=== PATIENT | male | born 1960 | race Caucasian/White ===

== ENCOUNTER 2024-09-30 10:40 | Inpatient (IN) | payer MEDICARE, BC ==
[2024-09-30] MEDS ORDERED: ALPRAZolam 0.25 MG TAB PO PRN (11:40)
[2024-09-30] MEDS ORDERED: NITROGLYCERIN SL TABS 0.4 MG TAB SUBLINGUAL PRN (11:40)
[2024-09-30] MEDS ORDERED: ALPRAZolam 0.5 MG TAB PO PRN (11:40)
--- NOTE | 2024-09-30 12:02 | P.CRDCN ---
History of Present Illness History of present illness: HISTORY OF PRESENT ILLNESS: This is a 64-year-old male with a past medical history significant for hypertension. Patient does not follow with a manager fashion. Patient presented to the hospital today for an outpatient walking stress test. Patient states he had 2 episodes in 2023, 1 in May and 1 in June where he "felt his heart beating". He does not necessarily describe it as chest discomfort. He states that he was at routine follow-up visit with Dr. Hart last month when he told him about the 2 episodes and he then ordered a stress test. The patient states since that episode in June 2024, he has had no further episodes. Patient states he is usually very active without symptoms. He denies any known history of coronary artery disease. Denies any family history of premature coronary artery disease. He is a non-smoker. Patient's initial EKG revealed nonspecific ST-T wave changes. Upon exercise, patient developed significant ST elevation in inferior leads with reciprocal changes. The patient denied any chest pain or pressure. Denied any shortness of breath. The patients EKG changes did improve with rest. REVIEW OF SYSTEMS: At the time of my exam: CONSTITUTIONAL: Denies fever or chills. HEENT: Denies blurred vision, vision changes, or eye pain. Denies hemoptysis CARDIOVASCULAR: Denies chest pain. Denies orthopnea. Denies PND. Denies palpitations RESPIRATORY: Denies shortness of breath. GASTROINTESTINAL: Denies abdominal pain. Denies nausea or vomiting. HEMATOLOGIC: Denies bleeding disorders. GENITOURINARY: Denies any blood in urine. SKIN: Denies pruitis. Denies rash. PHYSICAL EXAM: VITAL SIGNS: Reviewed. GENERAL: Well-developed in no acute distress. HEENT: Head is normocephalic. Pupils are equal, round. Sclerae anicteric. Mucous membranes of the mouth are moist. Neck supple. No JVD or thyromegaly LUNGS: Respirations even and unlabored. Lungs essentially clear to auscultation bilaterally. HEART: Regular rate and rhythm. S1 and S2 heard. ABDOMEN: Soft. Nondistended. Nontender. EXTREMITIES: Normal range of motion. No clubbing or cyanosis. Peripheral pulses intact. No lower extremity edema NEUROLOGIC: Awake and alert. Oriented x 3. ASSESSMENT: Abnormal EKG with ST elevation in inferior leads with reciprocal changes with exercise Hypertension PLAN: Obtain 2D echo to assess cardiac structure and function Give 325mg aspirin and 25mg metoprolol now Check CBC, BMP, TSH, hemoglobin A1c, and lipid panel Patient to be admitted to with telemetry Patient to undergo cardiac cath today with Dr. Zaman. Patient and updated and agreeable. Further recommendations pending patient course Nurse practitioner note has been reviewed by physician. Signing provider agrees with the documented findings, assessment, and plan of care documented by AMBULATORY SERVICES REPRESENTATIVE as a scribe. Results Current Medications Generic Name Dose Route Start Last Admin Trade Name Freq PRN Reason Stop Dose Admin Alprazolam 0.25 mg 09/30/24 11:40 Alprazolam 0.25 Mg Tab PO Q6HR PRN Mild Anxiety Alprazolam 0.5 mg 09/30/24 11:40 Alprazolam 0.5 Mg Tab PO Q6HR PRN Moderate Anxiety Aspirin 325 mg 09/30/24 11:38 Aspirin 325 Mg Tab PO 09/30/24 11:39 ONCE ONE Aspirin 325 mg 09/30/24 11:40 Aspirin 325 Mg Tab PO 09/30/24 11:41 ONCE STA Atorvastatin Calcium 80 mg 09/30/24 11:40 Atorvastatin 80 Mg Tab PO 09/30/24 11:41 ONCE STA Heparin Sodium (Porcine) 10, 1,001 mls @ 999 mls/hr 10/01/24 07:00 000 unit/ Sodium Chloride IRRIGATION 10/01/24 23:00 ONCE PRN INTRA-OP Heparin Sodium (Porcine) 2,500 250.5 mls @ 250 mls/hr 10/01/24 07:00 unit/ Sodium Chloride IRRIGATION 10/01/24 23:00 ONCE PRN INTRA-OP Sodium Chloride 1,000 ml/ IV 1,000 mls @ 0 mls/hr 09/30/24 11:45 Solution IV .Q0M CRISTINA 1 ML/KG/HR Metoprolol Tartrate 25 mg 09/30/24 11:38 Metoprolol Tartrate 25 Mg Tab PO 09/30/24 11:39 ONCE ONE Nitroglycerin 0.4 mg 09/30/24 11:40 Nitroglycerin Sl Tabs 0.4 Mg Tab SUBLINGUAL Q5M PRN Chest Pain
[2024-09-30] MEDS: METOPROLOL TARTRATE 25 MG TAB PO ONE (12:10)
[2024-09-30] MEDS: ASPIRIN 325 MG TAB PO ONE (12:10)
[2024-09-30] MEDS: SODIUM CHLORIDE 0.9% 1,000 ML in EMPTY BAG 1 BAG IV SCH (12:10)
[2024-09-30] MEDS: ATORVASTATIN 80 MG TAB PO STA (12:11)
[2024-09-30] MEDS: ASPIRIN 325 MG TAB PO STA (12:11)
[2024-09-30 12:16] LABS: Basophils % (A) 1 %; Eosinophils % (A) 1 %; HCT 39.7 % (39.0-53.0); HGB 12.4 gm/dL (13.0-17.5); Lymphocytes # (A) 0.9 k/uL (1.0-4.8); Lymphocytes % (A) 14 %; MCH 27.9 pg (25.0-35.0); MCHC 31.2 g/dL (31.0-37.0); MCV 89.3 fL (80.0-100.0); Mean Platelet Volume 6.6; Monocytes # (A) 0.2 k/uL (0-1.0); Monocytes % (A) 4 %; Neutrophils # (A) 5.1 k/uL (1.3-7.7); Neutrophils % (A) 79 %; Platelet Count 429 k/uL (150-450); RBC 4.45 m/uL (4.30-5.90); RDW 13.5 % (11.5-15.5); WBC 6.4 k/uL (3.8-10.6)
[2024-09-30] MEDS: IV FLUID CONTINUATION 1,000 ML IV ONE (12:17)
[2024-09-30 12:39] LABS: African American GFR (CKD) 84 (>60 ml/min/1.73 sqM); Anion Gap 12 mmol/L; Blood Urea Nitrogen 24 mg/dL (9-20); Calcium 9.5 mg/dL (8.4-10.2); Carbon Dioxide 24 mmol/L (22-30); Chloride 104 mmol/L (98-107); Glucose 108 mg/dL (74-99); Non-African American GFR(CKD) 73 (>60 ml/min/1.73 sqM); Potassium 3.8 mmol/L (3.5-5.1); Sodium 140 mmol/L (137-145)
--- NOTE | 2024-09-30 13:16 | CA ---
Exercise Stress Test Report Name: Dajuan Gross Exam Date: 09/30/2024 11:02 Exam Location: [facility] Stress Ht (in): 70 Wt (lb): 198 BSA: 2.08 Ordering Phys: Milo Hart MD Referring Phys: Milo aHrt MD Technologist: Brandon Westbrook Age: 64 Gender: M : 1960 Procedure CPT: Indications: R07.9 CHEST PAIN, UNSPECIFIED ICD-10 Codes: Patient History: PALPITATIONS, HTN Medications: LOSARTAN, HZTZ Meds past 24 hrs: Pretest Chest Pain: STRESS TEST Neftali Protocol Exercise Duration (min:sec): 06:[address] Depressions (mm): Angina Score: Villela Score: Resting HR (bpm): 96 Peak HR (bpm): 153 Resting BP (mmHg): 140 / 102 Peak BP (mmHg): 164 / 96 MPHR: 154 Target HR: 131 % MPHR: 99 METS: 8.6 Total Dose: Peak Dose: Atropine: Double Product: 36126 BP Response: Stress Termination: TARGET HR REACHED/MAX EXERTION Stress Symptoms: NO SYMPTOMS Stress Summary: The patient's target heart rate was achieved, The hemodynamic response to exercise was normal ECG ANALYSIS Resting ECG: Sinus rhythm. Normal conduction. No arrhythmias. QS pattern in the anterior inferior leads Stress ECG: ST elevation in the inferior leads with [address] depression in the anterior precordial leads that resolved very slowly in recovery CONCLUSIONS 1. Good exercise tolerance with no symptoms of chest comfort 2. Strongly positive electrocardiographic stress testing with ST elevation inferiorly and ST depression in the anterior precordial leads that resolved very slowly in recovery The findings were discussed with the patient and his , I have recommended to be admitted and proceed with coronary angiography. An echocardiogram will be performed. The patient received aspirin and beta-ryan. He remained asymptomatic. Dr. Lakshmi Zaman MD (Electronically Signed) Final Date: 30 September 2024 13:15
[2024-09-30 14:59] LABS: Chol/HDL Ratio 4.54 Ratio; LDL Cholesterol,Calculated 145.4 mg/dL (0.0-131.0); VLDL Calculation 18.28 mg/dL (5.00-40.00)
--- NOTE | 2024-09-30 15:10 | CA ---
Transthoracic Echo Report Name: Dajuan Gross Age: 64 Gender: M : 1960 Exam Date: 09/30/2024 12:47 Exam Location: [facility] Ht (in): 70 Wt (lb): 198 Ordering Physician: Apryl Hamilton Attending/Referring Phys: Milo Hart MD Pulverizer Catalina Camara RDCS Procedure CPT: Indications: CP, abnormal stress test, EKG changes Cardiac Hx: Technical Quality: Technically difficult study Contrast 1: Definity Total Dose (mL): 2 Contrast 2: Total Dose (mL): MEASUREMENTS (Male / Female) Normal Values 2D ECHO LV Diastolic Diameter PLAX 5.7 cm 4.2 - 5.9 / 3.9 - 5.3 cm LV Systolic Diameter PLAX 4.4 cm IVS Diastolic Thickness 1.1 cm 0.6 - 1.0 / 0.6 - 0.9 cm LVPW Diastolic Thickness 1.1 cm 0.6 - 1.0 / 0.6 - 0.9 cm LV Relative Wall Thickness 0.4 RV Internal Dim ED PLAX 3.3 cm LA Systolic Diameter LX 3.2 cm 3.0 - 4.0 / 2.7 - 3.8 cm LV Diastolic Volume MOD BP 121.8 cm??? 67 - 155 / 56 - 104 cm??? LV Systolic Volume MOD BP 61.5 cm??? 22 - 58 / 19 - 49 cm??? LV Ejection Fraction MOD BP 49.5 % >= 55 % LV Cardiac Index MOD BP 2242.4 cm???/min???m??? LV Diastolic Volume MOD 4C 116.1 cm??? LV Systolic Volume MOD 4C 66.7 cm??? LV Ejection Fraction MOD 4C 42.6 % LV Cardiac Index MOD 4C 1838.6 cm???/min???m??? LV Diastolic Length 4C 8.5 cm LV Systolic Length 4C 7.7 cm LV Diastolic Volume MOD 2C 124.3 cm??? LV Systolic Volume MOD 2C 58.0 cm??? LV Ejection Fraction MOD 2C 53.3 % LV Cardiac Index MOD 2C 2463.2 cm???/min???m??? LV Diastolic Length 2C 8.2 cm LV Systolic Length 2C 7.7 cm LA Volume 74.2 cm??? 18 - 58 / 22 - 52 cm??? LA Volume Index 34.9 cm???/m??? 16 - 28 cm???/m??? M-MODE Aortic Root Diameter MM 3.6 cm DOPPLER AV Peak Velocity 108.5 cm/s AV Peak Gradient 4.7 mmHg MV Area PHT 3.0 cm??? Mitral E Point Velocity 66.7 cm/s Mitral A Point Velocity 83.0 cm/s Mitral E to A Ratio 0.8 MV Deceleration Time 251.8 ms TR Peak Velocity 218.1 cm/s TR Peak Gradient 19.0 mmHg Right Ventricular Systolic Press 24.0 mmHg FINDINGS Left Ventricle Left ventricular ejection fraction is estimated at 45-50 %. Inferior and inferior lateral wall hypokinesis.left ventricular cavity size normal. Right Ventricle Mild right ventricular dilatation. Right ventricular systolic pressure within normal limits. Right Atrium Normal right atrial size. No right atrial thrombus or mass seen. Left Atrium Moderately increased left atrial volume. No left atrial thrombus or mass present. Mitral Valve Mitral valve thickened. Mild mitral annular calcification. Mild to moderate mitral regurgitation. Aortic Valve Trileaflet aortic valve. No aortic valve stenosis or regurgitation. Tricuspid Valve Structurally normal tricuspid valve. Mild tricuspid regurgitation. Pulmonic Valve Structurally normal pulmonic valve. No pulmonic regurgitation. Pericardium No pericardial effusion. Aorta Normal size aortic root and proximal ascending aorta. CONCLUSIONS 1. Mildly impaired left ventricular systolic function with segmental wall motion abnormality 2. Mild to moderate mitral regurgitation and mild tricuspid regurgitation with no evidence of pulmonary hypertension Previewed by: Dr. Lakshmi Zaman MD (Electronically Signed) Final Date: 30 September 2024 15:09
[2024-09-30] MEDS: LIDOCAINE 1% INJ 10MG/ML (20 ML MDV) SQ ONE (15:13)
[2024-09-30] MEDS: fentaNYL (PF) 50 MCG/1 ML VIAL IVP ONE (15:13)
[2024-09-30] MEDS: VERAPAMIL SYRINGE (5 MG/10 ML) INTRAARTER ONE (15:16)
[2024-09-30] MEDS: HEPARIN SODIUM,PORCINE (1 ML) 2,500 UNIT in SODIUM CHLORIDE 0.9% 250 ML IRRIGATION PRN (15:17)
[2024-09-30] MEDS: HEPARIN SODIUM,PORCINE 10,000 UNIT in SODIUM CHLORIDE 0.9% 1,000 ML IRRIGATION PRN (15:17)
[2024-09-30] MEDS: HEPARIN SODIUM 1,000 UN/ML (10ML VL) IVP ONE (15:23)
[2024-09-30] MEDS: MIDAZOLAM 2 MG/2 ML VIAL IVP ONE (15:27)
[2024-09-30] MEDS: IOPAMIDOL-250 100ML BTL INTRAARTER ONE (15:32)
[2024-09-30] MEDS ORDERED: RX INFO: IV CONTRAST WAS GIVEN 1 EACH MISC MISCELLANE PRN (15:54)
--- NOTE | 2024-09-30 16:01 | P.CARDCATH ---
Date of Procedure: 09/30/24 Description of Procedure: Cardiac Catheterization: The patient is a 64-year-old male with a known history of hypertension and hyperlipidemia who had some palpitations but otherwise no chest discomfort regular stress test today where he had significant ST segment elevation and depression in the inferior and the anterior precordial leads with slow resolution. Recommendations were made regarding cardiac catheterization, the risks and the complications were discussed with the patient who is in full understanding and agreement. Procedure Description: Patient was brought to label pinker in fasting semi-sedated state after receiving Fentanyl and Benadryl achieiving moderate conscious sedated state. Using Xy locaine Anesthesia and modified Seldinger technique, a 6-Mosotho sheath was introduced in the right radial artery . Subsequently, selective coronary angiography was performed using a 5-Mosotho 3.5 bend Edmundo catheter. Multiple views of the coronary artery including hemiaxial views were obtained. The 5 Mosotho pigtail catheter was used to cross the aortic valve and LVEDP was calculated. Following that, catheter and sheath were removed. Hemostasis was obtained with deployment of vascular band . There was no immediate complication. Patient was returned to room in stable condition. Of note, the patient received a total of 5000 units of intravenous heparin as well as intra-arterial verapamil. Findings: Left main: This is a short size vessel, bifurcating into LAD and left circumflex, left main has no obstructive disease LAD: This is a large size vessel, reaching to the apex, giving rise to a large diagonal branch proximally. At the takeoff of the diagonal branch there is 99% stenosis involving the LAD and the diagonal branch, the rest of the vessel has no high-grade stenosis Left circumflex: This is a large nondominant vessel giving rise to a very proximal first obtuse marginal branch the second obtuse marginal branch is small in caliber the left circumflex has mild intimal disease with no high-grade stenosis RCA: This is a dominant vessel that has a 60 to 70% stenosis in the midsegment and totally occluded in the distal segment with no significant antegrade flow. There was collaterals from the septals toward the PDA and the PLV Left Ventriculogram: Not performed Hemodynamics: There was no gradient across the aortic valve, LVEDP was 16-18 mmHg Conclusion: 1. Severe stenosis in the proximal LAD involving a large diagonal branch 2. Chronically occluded distal RCA with [id number] collaterals 3. Mild disease in the left circumflex 4. Mildly elevated LVEDP Recommendations: In review of the anatomy I have recommended to undergo evaluation for CABG, in the meantime he will be started on medical therapy including IV heparin. The findings and the recommendations were discussed with the patient and the family and they were in full understanding and agreement. Duration of sedation is 14 minutes.
[2024-09-30] MEDS: SODIUM CHLORIDE 0.9% 1,000 ML IV SCH (17:41)
[2024-09-30 18:17] LABS: Basophils % (A) 0 %; Eosinophils # (A) 0.1 k/uL (0-0.7); Eosinophils % (A) 1 %; HCT 36.8 % (39.0-53.0); HGB 11.9 gm/dL (13.0-17.5); Lymphocytes # (A) 1.3 k/uL (1.0-4.8); Lymphocytes % (A) 20 %; MCH 28.6 pg (25.0-35.0); MCHC 32.3 g/dL (31.0-37.0); MCV 88.7 fL (80.0-100.0); Mean Platelet Volume 7.1; Monocytes # (A) 0.2 k/uL (0-1.0); Monocytes % (A) 4 %; Neutrophils # (A) 4.6 k/uL (1.3-7.7); Neutrophils % (A) 72 %; Platelet Count 405 k/uL (150-450); RBC 4.15 m/uL (4.30-5.90); RDW 13.8 % (11.5-15.5); WBC 6.4 k/uL (3.8-10.6)
[2024-09-30 18:25] LABS: African American GFR (CKD) >90 (>60 ml/min/1.73 sqM); Anion Gap 12 mmol/L; Blood Urea Nitrogen 21 mg/dL (9-20); Calcium 8.9 mg/dL (8.4-10.2); Carbon Dioxide 22 mmol/L (22-30); Chloride 104 mmol/L (98-107); Glucose 91 mg/dL (74-99); Non-African American GFR(CKD) 89 (>60 ml/min/1.73 sqM); Potassium 3.6 mmol/L (3.5-5.1); Sodium 138 mmol/L (137-145)
[2024-09-30 18:31] LABS: INR 1.1 (<1.2); Prothrombin Time 11.6 sec (10.0-12.5)
[2024-09-30] MEDS: ATORVASTATIN 40 MG TAB PO SCH (19:59)
[2024-10-01] MEDS: HEPARIN SOD,PORK IN 0.45% NACL 25,000 UNIT in 0.45% NACL 1 250ML.BAG IV SCH (03:38)
--- NOTE | 2024-10-01 08:56 | CT ---
EXAMINATION TYPE: CT chest wo con DATE OF EXAM: 10/01/2024 COMPARISON: NONE CLINICAL INDICATION: Male, 64 years old with history of eval aorta for calcification, presurgical lanre nning. TECHNIQUE: CT scan of the thorax is performed without IV contrast. CT DLP: 458 mGycm. Automated Exposure Control for Dose Reduction was Utilized. FINDINGS: LUNGS: Mild linear scarring and reticulation in the right upper lobe. Focal mild linear scarring in t he lingula axial image 42. There is no pleural effusion or pneumothorax seen. The tracheobronchial tree is patent. HEART: Size within normal limits. Moderate coronary artery calcifications present. Minimal calcifica tion at the level of the aortic valve coronal image 51 . Mild to minimal calcified plaque of the tho racic aorta. MEDIASTINUM: Lack of IV contrast is noted to limit evaluation for mediastinal and especially hilar ad enopathy. There are no definitive greater than 1 cm mediastinal lymph nodes. No cardiomegaly or per icardial effusion is seen. There is 2.1 cm hypodense nodule lower pole right thyroid extending into t he isthmus coronal image 55. Small hiatal hernia. OTHER: Suspect numerous tiny gallstones filling the majority of the gallbladder. There is 3.0 cm simp le appearing thin-walled cortical cyst in the right kidney axial image 147. There is multilevel spurr ing in the spine. IMPRESSION: Some chronic findings as noted above. There is a round 2.0 cm right thyroid nodule extend ing into isthmus. Advise nonemergent thyroid ultrasound to further evaluate and characterize if this is not known finding. [facility], , 10/01/2024 8:53 AM
[2024-10-01] MEDS ORDERED: METOPROLOL TARTRATE 25 MG TAB PO SCH (09:00)
[2024-10-01] MEDS ORDERED: METOPROLOL SUCCINATE (ER) 25 MG TAB.ER.24H PO SCH (09:00)
--- NOTE | 2024-10-01 09:03 | P.GSCN ---
History of Present Illness Consult date: 10/01/24 Reason for Consult: Coronary artery disease, evaluate for CABG Requesting physician: Lakshmi Zaman History of present illness: This is a 64-year-old gentleman who follows outpatient with Dr. Milo Hart for internal medicine, he does not normally follow with a director video or any other physicians. He only reports a previous medical history of hypertension. Apparently he had a couple of episodes of chest pain, 1 in May and 1 in June. He has had no chest pain since. He reported to his dentist to his primary care physician who arranged a treadmill stress test which was completed yesterday. During the stress test he had ST elevation in the inferior leads and ST depression in the precordial leads. The ST changes did resolve with rest. He was taken to [facility] yesterday by Dr. Zaman revealing no left main disease, 99% stenosis involving the LAD and a diagonal branch, and dominant RCA with 60 to 70% mid stenosis and totally occluded distal RCA with collaterals from the septals toward the PDA and PLV. This finding consultation was placed to cardiothoracic surgery for revascularization recommendations. Of note he did have a transthoracic echocardiogram completed revealing reduced left ventricular systolic function with EF 45 to 50%, mild to moderate mitral regurgitation and mild tricuspid regurgitation without pulmonary hypertension, there was no pericardial effusion and the aortic root and proximal ascending aorta more normal size. Review of Systems Review of systems was completed and was negative except as noted Past Medical History Past Medical History: Coronary Artery Disease (CAD), Hyperlipidemia, Hype rtension History of Any Multi-Drug Resistant Organisms: None Reported Past Surgical History: Appendectomy, Hernia Repair Additional Past Surgical History / Comment(s): knee sx 2 right. 1 left, bilateral inguinal hernia repair, Past Anesthesia/Blood Transfusion Reactions: No Reported Reaction Past Psychological History: No Psychological Hx Reported Smoking Status: Never smoker Past Alcohol Use History: None Reported Past Drug Use History: None Reported - Past Family History Father Additional Family Medical History / Comment(s): from mesothelioma Mother Additional Family Medical History / Comment(s): from unknown cause although suspect from colon cancer Medications and Allergies Home Medications Medication Instructions Recorded Confirmed Type Losartan/Hydrochlorothiazide 1 tab PO DAILY 09/30/24 09/30/24 History [Losartan-Hctz 100-25 mg Tab] Allergies Allergy/AdvReac Type Severity Reaction Status Date / Time No Known Allergies Allergy Verified 09/30/24 14:09 Surgical - Exam Vital Signs Temp Pulse Resp BP Pulse Ox 98.2 F 106 H 16 128/87 98 09/30/24 12:16 09/30/24 12:16 09/30/24 12:16 09/30/24 12:16 09/30/24 12:16 CONSTITUTIONAL: Awake and alert, appears comfortable, cooperative, well- developed, well-nourished, no pain, no acute distress EYES: Pupils equal, round, reactive to light, normal ocular movement ENT: Moist mucous membranes without oral lesions present NECK: No masses, no bruits, trachea midline RESPIRATORY: Lungs sounds clear to auscultation bilaterally. Respirations even, nonlabored. Currently on room air with oxygen saturation 97%. Strong cough. No chest wall deformities. No clubbing or cyanosis present CARDIOVASCULAR: S1, S2 present. Regular rate and rhythm, sinus rhythm on telemetry. Palpable peripheral pulses bilaterally. No edema present. No calf pain or tenderness noted. No significant lower extremity varicosities noted GASTROINTESTINAL: Abdomen soft, nontender, nondistended without masses or organomegaly noted. There is no rebound or guarding present. Active bowel sounds present 4 quadrants. GENITOURINARY: Deferred INTEGUMENTARY: Skin is warm and dry with evidence of good perfusion. Right radial heart catheterization site with T band in place NEUROLOGIC: Cranial nerves II through XII intact, normal coordination, no obvious motor or sensory deficits, speech is normal MUSKULOSKELETAL: Able to move all extremities, strength equal bilaterally, normal posture PSYCHIATRIC: Alert and oriented to person place and time, appropriate affect, intact judgment and insight CLINICAL FRAILTY SCORE 2 Results - Labs 09/30/24 18:07 09/30/24 18:07 Abnormal Lab Results - Last 24 Hours (Table) 09/30/24 09/30/24 09/30/24 Range/Units 12:00 12:00 18:07 RBC (4.30-5.90) m/uL Hgb 12.4 L (13.0-17.5) gm/dL Hct (39.0-53.0) % Lymphocytes # 0.9 L (1.0-4.8) k/uL BUN 24 H 21 H (9-20) mg/dL Glucose 108 H (74-99) mg/dL Cholesterol 210.00 H (0.00-200.00) mg/dL LDL Cholesterol, Calc 145.4 H (0.0-131.0) mg/dL 09/30/24 Range/Units 18:07 RBC 4.15 L (4.30-5.90) m/uL Hgb 11.9 L (13.0-17.5) gm/dL Hct 36.8 L (39.0-53.0) % Lymphocytes # (1.0-4.8) k/uL BUN (9-20) mg/dL Glucose (74-99) mg/dL Cholesterol (0.00-200.00) mg/dL LDL Cholesterol, Calc (0.0-131.0) mg/dL Diabetes panel 09/30/24 09/30/24 09/30/24 Range/Units 12:00 12:00 18:07 Sodium 140 138 (137-145) mmol/L Potassium 3.8 3.6 (3.5-5.1) mmol/L Chloride 104 104 (98-107) mmol/L Carbon Dioxide 24 22 (22-30) mmol/L BUN 24 H 21 H (9-20) mg/dL Creatinine 1.07 0.90 (0.66-1.25) mg/dL Glucose 108 H 91 (74-99) mg/dL Hemoglobin A1c 6.0 (<=6.0) % Calcium 9.5 8.9 (8.4-10.2) mg/dL Triglycerides 91.40 (0.00-149.00) mg/dL HDL Cholesterol 46.30 (40.00-60.00) mg/dL Thyroid panel 09/30/24 Range/Units 12:00 TSH 2.250 (0.465-4.680) mIU/L Calcium panel 09/30/24 09/30/24 Range/Units 12:00 18:07 Calcium 9.5 8.9 (8.4-10.2) mg/dL Pituitary panel 09/30/24 09/30/24 Range/Units 12:00 18:07 Sodium 140 138 (137-145) mmol/L Potassium 3.8 3.6 (3.5-5.1) mmol/L Chloride 104 104 (98-107) mmol/L Carbon Dioxide 24 22 (22-30) mmol/L BUN 24 H 21 H (9-20) mg/dL Creatinine 1.07 0.90 (0.66-1.25) mg/dL Glucose 108 H 91 (74-99) mg/dL Calcium 9.5 8.9 (8.4-10.2) mg/dL TSH 2.250 (0.465-4.680) mIU/L Adrenal panel 09/30/24 09/30/24 Range/Units 12:00 18:07 Sodium 140 138 (137-145) mmol/L Potassium 3.8 3.6 (3.5-5.1) mmol/L Chloride 104 104 (98-107) mmol/L Carbon Dioxide 24 22 (22-30) mmol/L BUN 24 H 21 H (9-20) mg/dL Creatinine 1.07 0.90 (0.66-1.25) mg/dL Glucose 108 H 91 (74-99) mg/dL Calcium 9.5 8.9 (8.4-10.2) mg/dL - Imaging Additional studies: Heart catheterization and echocardiogram films reviewed with Dr. Troncoso Assessment and Plan Assessment: Coronary artery disease History of hypertension Hyperlipidemia, cholesterol 210, LDL 145 Plan: The patient was seen and examined sitting up at the bedside eating breakfast with his present. Chart/diagnostics reviewed. The usual perioperative course of open-heart surgery was discussed in detail with the patient and his , risks and benefits were reviewed, all questions were answered. Heart catheterization and echocardiogram films were reviewed with Dr. Troncoso. Our recommendation is for surgical cardial revascularization. Preoperative testing was initiated, once completed we will calculate STS risk score and discuss with the patient. Will perform 5 m walk test. The patient did indicate that his daughter is an tree doctor in [place], family has some concerns about where he has his surgery. Dr. Troncoso will meet with the patient and his today and discuss his recommendations. Continue to maximize medical therapy with aspirin, statin, beta-ryan therapy. IV heparin per cardiology. Medical management of other comorbidities per internal medicine, cardiology. More recommendations to follow. Thank you Dr. Zaman for this consult, we will continue to follow along and make further recommendations as appropriate. I have personally seen and examined the patient, performed the documentation and the assessment and plan as written. Number of minutes spent on the visit: 30. CECI Abdalla
[2024-10-01] MEDS: METOPROLOL TARTRATE 12.5 MG TAB PO SCH (09:38)
[2024-10-01] MEDS: ASPIRIN 81 MG PO SCH (09:38)
[2024-10-01] MEDS: LOSARTAN-HCTZ 50-12.5 MG 1 EACH TAB PO SCH (09:38)
[2024-10-01 10:35] LABS: Basophils % (A) 1 %; Eosinophils % (A) 1 %; HCT 38.7 % (39.0-53.0); HGB 12.1 gm/dL (13.0-17.5); Lymphocytes # (A) 0.9 k/uL (1.0-4.8); Lymphocytes % (A) 15 %; MCHC 31.2 g/dL (31.0-37.0); MCV 89.7 fL (80.0-100.0); Mean Platelet Volume 6.7; Monocytes # (A) 0.2 k/uL (0-1.0); Monocytes % (A) 4 %; Neutrophils # (A) 4.5 k/uL (1.3-7.7); Neutrophils % (A) 78 %; Platelet Count 411 k/uL (150-450); RBC 4.31 m/uL (4.30-5.90); RDW 13.5 % (11.5-15.5); WBC 5.8 k/uL (3.8-10.6)
[2024-10-01 10:57] LABS: Partial Thromboplastin Time 31.1 sec (22.0-30.0); Prothrombin Time 11.1 sec (10.0-12.5)
--- NOTE | 2024-10-01 11:00 | US ---
EXAMINATION TYPE: US vein mapping BILAT DATE OF EXAM: 10/01/2024 10:43 AM Exam done portable COMPARISON: NONE CLINICAL INDICATION: Male, 64 years old with history of preop cardiac surgery; , Preop- Cardiac Surge ry TECHNIQUE: Grayscale and color Doppler imaging of the lower extremity venous system. SIDE PERFORMED: Bilateral FINDINGS: DUPLEX FINDINGS: Greater Saphenous: Color flow seen Measurements in mm: Right Greater Saphenous: Groin: 6.0 x 6.2 mm High Thigh: 5.0 x 5.4 mm Mid Thigh: 3.3 x 3.8 mm Above Knee: 2.9 x 3.1 mm Knee: 3.2 x 3.8 mm Below Knee: 2.9 x 3.5 mm Mid Calf: 2.2 x 2.6 mm At Ankle: 2.2 x 2.3 mm Left Greater Saphenous: Groin: 5.6 x 5.3 mm High Thigh: 4.7 x 5.3 mm Mid Thigh: 4.4 x 5.3 mm Above Knee: 3.4 x 3.8 mm Knee: 3.6 x 3.8 mm Below Knee: 2.9 x 3.0 mm Mid Calf: 2.9 x 3.3 mm At Ankle: 2.3 x 2.6 mm IMPRESSION: 1. No evidence for occlusion. 2. GSV measurements listed above. 3. Performing surgeon to determine viability as conduit. [facility], , 10/01/2024 10:58 AM
--- NOTE | 2024-10-01 11:01 | US ---
EXAMINATION TYPE: Pre-Operative Non-Invasive Evaluation of the hand for Potential Radial Artery John zamarripa, Measurements only DATE OF EXAM: 10/01/2024 10:43 AM Exam done portable CLINICAL INDICATION: Male, 64 years old with history of measurements only; , Preop- Cardiac Surgery TECHNIQUE:Grayscale and color Doppler imaging of the radial artery(s) SIDE PERFORMED: Left FINDINGS: Duplex Findings: Radial Artery: Color flow seen Measurements in mm, transverse view: Left Radial: Proximal: deferred due to IV Mid: 3.4 x 2.9 mm Distal: 2.9 x 3.3 mm IMPRESSION: 1. No evidence for vascular occlusion. 2. Measurements as described above. [facility], , 10/01/2024 10:59 AM
--- NOTE | 2024-10-01 11:02 | US ---
EXAMINATION TYPE: US carotid duplex BILAT DATE OF EXAM: 10/01/2024 Exam done portable COMPARISON: NONE CLINICAL INDICATION: Male, 64 years old with history of preop cardiac surgery; TECHNIQUE: Grayscale, color Doppler and spectral Doppler evaluation of the bilateral carotid systems and vertebral arteries. Indirect Doppler criteria was utilized. FINDINGS: EXAM MEASUREMENTS: RIGHT: Peak Systolic Velocity (PSV) cm/sec ----- Right CCA: 61.1 ----- Right ICA: 71.5 ----- Right ECA: 92.1 ICA/CCA ratio: 1.2 RIGHT: End Diastole cm/sec ----- Right CCA: 20.6 ----- Right ICA: 19.1 ----- Right ECA: 9.9 LEFT: Peak Systolic Velocity (PSV) cm/sec ----- Left CCA: 55.6 ----- Left ICA: 75.4 ----- Left ECA: 79.2 ICA/CCA ratio: 1.4 LEFT: End Diastole cm/sec ----- Left CCA: 16.0 ----- Left ICA: 29.5 ----- Left ECA: 5.6 VERTEBRALS (direction of flow): Right Vertebral: Antegrade Left Vertebral: Antegrade Rhythm: Normal IMPRESSION: Right: No hemodynamically significant stenosis. Left: No hemodynamically significant stenosis. Criteria for Assigning % of Stenosis / Diameter reduction (Estimation based on the indirect measurements of the internal carotid artery velocities (ICA PSV). 1. Normal (no stenosis)=ICA PSV < 125 cm/s: ratio < 2.0: ICA EDV<40 cm/s. 2. Less than 50% stenosis=ICA PSV < 125 cm/s: ratio < 2.0: ICA EDV<40 cm/s. 3. 50 to 69% stenosis=ICA PSV of 125 to 230 cm/s: ration 2.0 ? 4.0: ICA EDV 40-100 cm/s. 4. Greater than 70% stenosis to near occlusion= ICA PSV > 230 cm/s: ratio > 4.0: ICA EDV > 100 cm/s. 5. Near occlusion= ICA PSV velocities may be low or undetectable: variable ratio and ICA EDV. 6. Total occlusion=unable to detect flow. [facility], , 10/01/2024 10:59 AM
[2024-10-01 11:45] LABS: Appearance,Urine Clear (Clear); Bilirubin,Urine Negative (Negative); Blood,Urine Negative (Negative); Color,Urine Colorless; Glucose,Urine (UA) Negative (Negative); Ketones,Urine Negative (Negative); Leukocyte Esterase,Urine Negative (Negative); Nitrite,Urine Negative (Negative); PH, Urine 5.5 (5.0-8.0); Protein,Urine Negative (Negative); Specific Gravity,Urine 1.013 (1.001-1.035); Urobilinogen,Urine <2.0 mg/dL (<2.0)
[2024-10-01] MEDS: HEPARIN SODIUM 1,000 UN/ML (10ML VL) IV PRN (12:53)
--- NOTE | 2024-10-01 15:02 | P.PN ---
Subjective Progress Note Date: 10/01/24 HISTORY OF PRESENT ILLNESS: This is a 64-year-old male with a past medical history significant for hype rtension. Patient does not follow with a seismograph operator. Patient presented to the hospital today for an outpatient walking stress test. Patient states he had 2 episodes in 2023, 1 in May and 1 in June where he "felt his heart beating". He does not necessarily describe it as chest discomfort. He states that he was at routine follow-up visit with Dr. Hart last month when he told him about the 2 episodes and he then ordered a stress test. The patient states since that episode in June 2024, he has had no further episodes. Patient states he is usually very active without symptoms. He denies any known history of coronary artery disease. Denies any family history of premature coronary artery disease. He is a non-smoker. Patient's initial EKG revealed nonspecific ST-T wave changes. Upon exercise, patient developed significant ST elevation in inferior leads with reciprocal changes. The patient denied any chest pain or pressure. Denied any shortness of breath. The patients EKG changes did improve with rest. 10/01 Yesterday, patient underwent cardiac catheterization with Dr. Zaman which revealed severe stenosis in the proximal LAD involving the large diagonal bran ch, chronically occluded distal RCA with [id number] collaterals, mild disease in the left circumflex and mildly elevated LVEDP. Patient has been admitted to the cardiac stepdown unit and a consult is in place for cardiothoracic surgery evaluation for CABG. Patient is currently pain-free. Blood pressure 132/82, heart rate 82, pulse ox 100% on room air. Repeat blood work reveals hemoglobin 12.1. Echocardiogram reveals EF 45 to 50% with mildly impaired left ventricular systolic function and segmental wall motion abnormality. Mild to moderate mitral regurgitation and mild tricuspid regurgitation with no evidence of pulmonary hypertension. PHYSICAL EXAM: VITAL SIGNS: Reviewed. GENERAL: Well-developed in no acute distress. LUNGS: Respirations even and unlabored. Lungs essentially clear to auscultation bilaterally. HEART: Regular rate and rhythm. S1 and S2 heard. ABDOMEN: Soft. Nondistended. Nontender. EXTREMITIES: No clubbing or cyanosis. Peripheral pulses intact. No lower extr emity edema ASSESSMENT: Abnormal EKG with ST elevation in inferior leads with reciprocal changes with exercise Coronary artery disease Hypertension Hyperlipidemia PLAN: Continue patient on aspirin 81 mg daily, atorvastatin 40 mg at bedtime, losartan/hydrochlorothiazide, Lopressor 25 mg twice daily Continue patient on heparin drip Cardiothoracic surgery evaluation for CABG Further recommendations pending patient course Nurse practitioner note has been reviewed by physician. Signing provider agrees with the documented findings, assessment, and plan of care documented by FINANCIAL SERVICE REPRESENTATIVE as a scribe. Objective - Vital Signs Vital signs: Vital Signs Temp 98.4 F 10/01/24 08:00 Pulse 82 10/01/24 08:00 Resp 18 10/01/24 08:00 BP 132/82 10/01/24 08:00 Pulse Ox 100 10/01/24 08:00 FiO2 Intake & Output 09/30/24 10/01/24 10/01/24 18:59 06:59 18:59 Intake Total 345 180 Balance 345 180 Weight 91.4 kg 91.6 kg Intake: IV 345 Oral 180 Other: Voiding Method Toilet # Voids 2 - Labs CBC & Chem 7: 10/01/24 09:59 09/30/24 18:07 Labs: Abnormal Lab Results - Last 24 Hours (Table) 09/30/24 09/30/24 09/30/24 Range/Units 12:00 12:00 18:07 RBC (4.30-5.90) m/uL Hgb 12.4 L (13.0-17.5) gm/dL Hct (39.0-53.0) % Lymphocytes # 0.9 L (1.0-4.8) k/uL BUN 24 H 21 H (9-20) mg/dL Glucose 108 H (74-99) mg/dL Cholesterol 210.00 H (0.00-200.00) mg/dL LDL Cholesterol, Calc 145.4 H (0.0-131.0) mg/dL 09/30/24 Range/Units 18:07 RBC 4.15 L (4.30-5.90) m/uL Hgb 11.9 L (13.0-17.5) gm/dL Hct 36.8 L (39.0-53.0) % Lymphocytes # (1.0-4.8) k/uL BUN (9-20) mg/dL Glucose (74-99) mg/dL Cholesterol (0.00-200.00) mg/dL LDL Cholesterol, Calc (0.0-131.0) mg/dL
[2024-10-01] MEDS: METOPROLOL TARTRATE 25 MG TAB PO SCH (20:33)
[2024-10-01] MEDS: MUPIROCIN 2% OINT 22 GM TUBE NASAL SCH (20:34)
--- NOTE | 2024-10-02 06:54 | XR ---
EXAMINATION TYPE: XR chest 2V DATE OF EXAM: 10/02/2024 CLINICAL INDICATION: Male, 64 years old with history of Preop CABG, TECHNIQUE: Frontal and lateral views of the chest are obtained. COMPARISON: Chest CT one day earlier FINDINGS: Overlying EKG leads are present. There is no focal air space opacity, pleural effusion, or pneumothorax seen. The cardiac silhouette size is within normal limits. The osseous structures are intact. IMPRESSION: No acute cardiopulmonary process. [facility], , 10/02/2024 6:52 AM
--- NOTE | 2024-10-02 11:31 | P.PN ---
Subjective Progress Note Date: 10/02/24 Principal diagnosis: Coronary artery disease. History of hypertension, hyperlipidemia Patient was seen and examined this morning walking around the room on 3 S. in no acute distress. Denies any pain or shortness of breath. Remains in sinus rhythm to sinus bradycardia, hemodynamically stable. He was seen yesterday by Dr. Troncoso with recommendations for open heart surgery. All questions were answered, Dr. Troncoso did converse via phone with the patient's niece who is an shingle cutter in [place], all of her questions were answered as well. The patient does consent to surgery which we are planning on Saturday. No other new concerns. Objective - Vital Signs Vital signs: Vital Signs Temp 98.2 F 10/02/24 08:01 Pulse 84 10/02/24 08:01 Resp 16 10/02/24 08:01 BP 145/89 10/02/24 08:01 Pulse Ox 99 10/02/24 08:01 FiO2 Intake & Output 10/01/24 10/02/24 10/02/24 18:59 06:59 18:59 Intake Total 674.631 115.369 283.656 Balance 674.631 115.369 283.656 Weight 91.6 kg 91.2 kg Intake: IV 8 Invasive Line 1 8 Intake, IV Titration 134.631 115.369 55.656 Amount Heparin Sod,Pork in 0.45% 134.631 115.369 55.656 NaCl 25,000 unit In 0.45 % NaCl 1 250ml.bag @ 10. 94 UNITS/KG/HR 9.999 mls/ hr IV .Q24H [facility] Rx#: [id number] Oral 540 220 Other: Voiding Method Toilet Toilet # Voids 1 1 - Exam CONSTITUTIONAL: Appears comfortable, cooperative, no acute distress RESPIRATORY: Lungs sounds diminished bilaterally. Respirations even, non labored. Currently on room air with oxygen saturation 99% CARDIOVASCULAR: S1, S2 present. Regular rate and rhythm, sinus rhythm on telemetry. Palpable peripheral pulses bilaterally. No edema present GASTROINTESTINAL: Abdomen soft, nontender, nondistended. Active bowel sounds present 4 quadrants. Tolerating diet GENITOURINARY: Continues to void INTEGUMENTARY: Skin is warm and dry with evidence of good perfusion NEUROLOGIC: Cranial nerves II through XII intact MUSKULOSKELETAL: Able to move all extremities, strength equal bilaterally, gait normal PSYCHIATRIC: Alert and oriented to person place and time, appropriate affect, intact judgment and insight - Labs CBC & Chem 7: 10/01/24 09:59 09/30/24 18:07 Labs: Abnormal Lab Results - Last 24 Hours (Table) 10/01/24 10/02/24 Range/Units 15:48 07:50 APTT 42.2 H 37.5 H (22.0-30.0) sec - Imaging and Cardiology Chest x-ray: report reviewed, image reviewed Assessment and Plan Assessment: Coronary artery disease History of hypertension Hyperlipidemia, cholesterol 210, LDL 145 Plan: Continue to maximize medical therapy with aspirin, statin, beta-ryan therapy Increase activity, ambulate as tolerated, 5 m walk test completed by cardiac rehab, #1 3.41 sec, #2 3.45 sec, #3 3.45 sec, patient tolerated well STS risk score calculated at less than 1%, patient is considered low risk Encourage incentive spirometry use Our plan is for surgical revascularization with left internal mammary artery, left radial artery, endoscopic vein harvest with left atrial appendage ligation by Dr. Troncoso on 10/05/24 Continue to reinforce preoperative teaching Medical management of other comorbidities per internal medicine, cardiology More recommendations to follow
--- NOTE | 2024-10-02 14:00 | P.PN ---
Subjective Progress Note Date: 10/02/24 HISTORY OF PRESENT ILLNESS: This is a 64-year-old male with a past medical history significant for hype rtension. Patient does not follow with a emergency room technician. Patient presented to the hospital today for an outpatient walking stress test. Patient states he had 2 episodes in 2023, 1 in May and 1 in June where he "felt his heart beating". He does not necessarily describe it as chest discomfort. He states that he was at routine follow-up visit with Dr. Hart last month when he told him about the 2 episodes and he then ordered a stress test. The patient states since that episode in June 2024, he has had no further episodes. Patient states he is usually very active without symptoms. He denies any known history of coronary artery disease. Denies any family history of premature coronary artery disease. He is a non-smoker. Patient's initial EKG revealed nonspecific ST-T wave changes. Upon exercise, patient developed significant ST elevation in inferior leads with reciprocal changes. The patient denied any chest pain or pressure. Denied any shortness of breath. The patients EKG changes did improve with rest. 10/01 Yesterday, patient underwent cardiac catheterization with Dr. Zaman which revealed severe stenosis in the proximal LAD involving the large diagonal bran ch, chronically occluded distal RCA with [id number] collaterals, mild disease in the left circumflex and mildly elevated LVEDP. Patient has been admitted to the cardiac stepdown unit and a consult is in place for cardiothoracic surgery evaluation for CABG. Patient is currently pain-free. Blood pressure 132/82, heart rate 82, pulse ox 100% on room air. Repeat blood work reveals hemoglobin 12.1. Echocardiogram reveals EF 45 to 50% with mildly impaired left ventricular systolic function and segmental wall motion abnormality. Mild to moderate mitral regurgitation and mild tricuspid regurgitation with no evidence of pulmonary hypertension. 10/02 Patient seen and examined. Patient has been seen evaluated by cardiothoracic surgery for CABG and is scheduled for Saturday. Patient denies chest pain no shortness of breath. Patient has been quite active and walking. Blood pressure 122/75, heart rate 60, pulse ox 99% on room air. Repeat chest x-ray reveals no acute cardiopulmonary process. PHYSICAL EXAM: VITAL SIGNS: Reviewed. GENERAL: Well-developed in no acute distress. LUNGS: Respirations even and unlabored. Lungs essentially clear to auscultation bilaterally. HEART: Regular rate and rhythm. S1 and S2 heard. ABDOMEN: Soft. Nondistended. Nontender. EXTREMITIES: No clubbing or cyanosis. Peripheral pulses intact. No lower extremity edema ASSESSMENT: Abnormal EKG with ST elevation in inferior leads with reciprocal changes with exercise Coronary artery disease Hypertension Hyperlipidemia PLAN: Continue patient on aspirin 81 mg daily, atorvastatin 40 mg at bedtime, l hy dralazine, Lopressor 25 mg twice daily Cardiothoracic surgery evaluation for CABG scheduled for Saturday Further recommendations pending patient course Nurse practitioner note has been reviewed by physician. Signing provider agrees with the documented findings, assessment, and plan of care documented by [employer] ASSEMBLER as a scribe. Objective - Vital Signs Vital signs: Vital Signs Temp 98.2 F 10/02/24 08:01 Pulse 84 10/02/24 08:01 Resp 16 10/02/24 08:01 BP 145/89 10/02/24 08:01 Pulse Ox 99 10/02/24 08:01 FiO2 Intake & Output 10/01/24 10/02/24 10/02/24 18:59 06:59 18:59 Intake Total 674.631 115.369 283.656 Balance 674.631 115.369 283.656 Weight 91.6 kg 91.2 kg Intake: IV 8 Invasive Line 1 8 Intake, IV Titration 134.631 115.369 55.656 Amount Heparin Sod,Pork in 0.45% 134.631 115.369 55.656 NaCl 25,000 unit In 0.45 % NaCl 1 250ml.bag @ 10. 94 UNITS/KG/HR 9.999 mls/ hr IV .Q24H [facility] Rx#: [id number] Oral 540 220 Other: Voiding Method Toilet Toilet # Voids 1 1 - Labs CBC & Chem 7: 10/01/24 09:59 09/30/24 18:07 Labs: Abnormal Lab Results - Last 24 Hours (Table) 10/01/24 10/01/24 10/01/24 Range/Units 09:59 09:59 15:48 Hgb 12.1 L (13.0-17.5) gm/dL Hct 38.7 L (39.0-53.0) % Lymphocytes # 0.9 L (1.0-4.8) k/uL APTT 31.1 H 42.2 H (22.0-30.0) sec 10/02/24 Range/Units 07:50 Hgb (13.0-17.5) gm/dL Hct (39.0-53.0) % Lymphocytes # (1.0-4.8) k/uL APTT 37.5 H (22.0-30.0) sec
[2024-10-02 15:28] LABS: Hepatitis A Antibody IgM Nonreactive (Nonreactive); Hepatitis B Core IgM Nonreactive (Nonreactive); Hepatitis B Surface Antigen Nonreactive (Nonreactive); Hepatitis C IgG Antibody Nonreactive (Nonreactive)
[2024-10-02 16:52] LABS: T4, Free (Free Thyroxine) 1.02 ng/dL (0.78-2.19)
[2024-10-02 20:12] LABS: Glucose,Whole Blood 114 mg/dL (70-110)
--- NOTE | 2024-10-03 00:07 | HP ---
HISTORY AND PHYSICAL HISTORY OF PRESENT ILLNESS: A 64-year-old white male, had an abnormal stress test. Cardiology sent him in from the stress test for ischemia. He was found on the heart catheterization to have LAD disease. He apparently is going to be in the hospital over the weekend from what I was told to get an open heart surgery on Saturday. Apparently, Dr. Otto, [facility] in [place]. He consented to surgery on Saturday. PAST MEDICAL HISTORY: Hypertension. MEDICATIONS: He is on lisinopril/hydrochlorothiazide at home. PHYSICAL EXAMINATION: VITAL SIGNS: BP 145/89, pulse 84, respiratory rate is 16, temp 92, O2 of 99%. CARDIOVASCULAR: S1, S2. LUNGS: Clear. GI: Soft. EXTREMITIES: No edema. PSYCH: He is alert, and oriented. NEUROLOGIC: Cranial nerves intact. ASSESSMENT: Coronary artery disease, hypertension, dyslipidemia. He is on aspirin, statins, beta blockers. They are going to take him for bypass on Saturday. Please see further orders. MMODL / IJN: [id number] /
[2024-10-03] MEDS: hydrALAZINE HCL 25 MG TAB PO SCH (09:01)
--- NOTE | 2024-10-03 09:35 | P.PN ---
Subjective Progress Note Date: 10/03/24 Principal diagnosis: Coronary artery disease. History of hypertension, hyperlipidemia Patient was seen this morning in the shower on 3 S. in no acute distress. Denies any pain or shortness of breath. Remains in sinus rhythm, hemodynamically stable. Patient has been ambulatory in his room. He was a bit emotional this morning per nurse. No other new concerns. Objective - Vital Signs Vital signs: Vital Signs Temp 98.0 F 10/03/24 04:00 Pulse 66 10/03/24 04:00 Resp 18 10/03/24 04:00 BP 112/71 10/03/24 04:00 Pulse Ox 98 10/03/24 04:00 FiO2 Intake & Output 10/02/24 10/03/24 10/03/24 18:59 06:59 18:59 Intake Total 649.079 Output Total 1 Balance 649.079 -1 Weight 91.2 kg Intake: IV 18 Invasive Line 1 13 Invasive Line 2 5 Intake, IV Titration 411.079 Amount Heparin Sod,Pork in 0.45% 111.079 NaCl 25,000 unit In 0.45 % NaCl 1 250ml.bag @ 10. 94 UNITS/KG/HR 9.999 mls/ hr IV .Q24H [facility] Rx#: [id number] Sodium Chloride 0.9% 1, 300 000 ml In Empty Bag 1 bag @ 1 ML/KG/HR 91.4 mls/hr IV .[id number] [facility] Rx#: [id number] Oral 220 Output: Stool 1 Other: Voiding Method Toilet Toilet # Voids 1 - Exam CONSTITUTIONAL: Appears comfortable, cooperative, no acute distress RESPIRATORY: Lungs sounds diminished bilaterally. Respirations even, nonlabored. Currently on room air with oxygen saturation 96% CARDIOVASCULAR: S1, S2 present. Regular rate and rhythm, sinus rhythm on telemetry. Palpable peripheral pulses bilaterally. No edema present GASTROINTESTINAL: Abdomen soft, nontender, nondistended. Active bowel sounds present 4 quadrants. Tolerating diet GENITOURINARY: Continues to void INTEGUMENTARY: Skin is warm and dry with evidence of good perfusion NEUROLOGIC: Cranial nerves II through XII intact MUSKULOSKELETAL: Able to move all extremities, strength equal bilaterally, gait normal PSYCHIATRIC: Alert and oriented to person place and time, appropriate affect, intact judgment and insight - Allied health notes Allied health notes reviewed: nursing - Labs CBC & Chem 7: 10/01/24 09:59 09/30/24 18:07 Labs: Abnormal Lab Results - Last 24 Hours (Table) 10/02/24 Range/Units 19:43 POC Glucose (mg/dL) 114 H (70-110) mg/dL Microbiology - Last 24 Hours (Table) 10/01/24 09:28 Nasal Screen MRSA/MSSA - Final Nasal Swab Assessment and Plan Assessment: Coronary artery disease History of hypertension Hyperlipidemia, cholesterol 210, LDL 145 Plan: Continue to maximize medical therapy with aspirin, statin, beta-ryan therapy Increase activity, ambulate as tolerated Encourage incentive spirometry use Our plan is for surgical revascularization with left internal mammary artery, left radial artery, endoscopic vein harvest with left atrial appendage ligation by Dr. Troncoso on 10/05/24 Continue to reinforce preoperative teaching Medical management of other comorbidities per internal medicine, cardiology More recommendations to follow
[2024-10-03] MEDS: HEPARIN SODIUM,PORCINE 5,000 UNIT/ML 1 ML VIAL SQ SCH (11:14)
--- NOTE | 2024-10-03 11:36 | P.PN ---
Subjective Progress Note Date: 10/03/24 HISTORY OF PRESENT ILLNESS: This is a 64-year-old male with a past medical history significant for hype rtension. Patient does not follow with a green chain worker. Patient presented to the hospital today for an outpatient walking stress test. Patient states he had 2 episodes in 2023, 1 in May and 1 in June where he "felt his heart beating". He does not necessarily describe it as chest discomfort. He states that he was at routine follow-up visit with Dr. Hart last month when he told him about the 2 episodes and he then ordered a stress test. The patient states since that episode in June 2024, he has had no further episodes. Patient states he is usually very active without symptoms. He denies any known history of coronary artery disease. Denies any family history of premature coronary artery disease. He is a non-smoker. Patient's initial EKG revealed nonspecific ST-T wave changes. Upon exercise, patient developed significant ST elevation in inferior leads with reciprocal changes. The patient denied any chest pain or pressure. Denied any shortness of breath. The patients EKG changes did improve with rest. 10/01 Yesterday, patient underwent cardiac catheterization with Dr. Zaman which revealed severe stenosis in the proximal LAD involving the large diagonal bran ch, chronically occluded distal RCA with [id number] collaterals, mild disease in the left circumflex and mildly elevated LVEDP. Patient has been admitted to the cardiac stepdown unit and a consult is in place for cardiothoracic surgery evaluation for CABG. Patient is currently pain-free. Blood pressure 132/82, heart rate 82, pulse ox 100% on room air. Repeat blood work reveals hemoglobin 12.1. Echocardiogram reveals EF 45 to 50% with mildly impaired left ventricular systolic function and segmental wall motion abnormality. Mild to moderate mitral regurgitation and mild tricuspid regurgitation with no evidence of pulmonary hypertension. 10/02 Patient seen and examined. Patient has been seen evaluated by cardiothoracic surgery for CABG and is scheduled for Saturday. Patient denies chest pain no shortness of breath. Patient has been quite active and walking. Blood pressure 122/75, heart rate 60, pulse ox 99% on room air. Repeat chest x-ray reveals no acute cardiopulmonary process. 10/03 Patient seen and examined. No complaints of chest pain or chest pressure. No shortness of breath. Patient remains quite active. Heparin drip was discontinued will start patient on heparin subcu. Medication changes were made yesterday to discontinue losartan/hydrochlorothiazide and started on hydralazine. Blood pressure 142/85, heart rate 93, pulse ox 97% on room air. PHYSICAL EXAM: VITAL SIGNS: Reviewed. GENERAL: Well-developed in no acute distress. LUNGS: Respirations even and unlabored. Lungs essentially clear to auscultation bilaterally. HEART: Regular rate and rhythm. S1 and S2 heard. ABDOMEN: Soft. Nondistended. Nontender. EXTREMITIES: No clubbing or cyanosis. Peripheral pulses intact. No lower extremity edema ASSESSMENT: Abnormal EKG with ST elevation in inferior leads with reciprocal changes with exercise Coronary artery disease found on cardiac catheterization, scheduled for CABG on Saturday, 10/05 Hypertension Hyperlipidemia PLAN: Continue patient on aspirin 81 mg daily, atorvastatin 40 mg at bedtime, hydralazine, Lopressor 25 mg twice daily Cardiothoracic surgery evaluation for CABG scheduled for Saturday Further recommendations pending patient course Nurse practitioner note has been reviewed by physician. Signing provider agrees with the documented findings, assessment, and plan of care documented by C[employer]ATION as a scribe. Objective - Vital Signs Vital signs: Vital Signs Temp 97.7 F 10/03/24 08:53 Pulse 93 10/03/24 08:53 Resp 20 10/03/24 08:53 BP 142/85 10/03/24 08:53 Pulse Ox 97 10/03/24 08:53 FiO2 Intake & Output 10/02/24 10/03/24 10/03/24 18:59 06:59 18:59 Intake Total 649.079 Output Total 1 Balance 649.079 -1 Weight 91.2 kg Intake: IV 18 Invasive Line 1 13 Invasive Line 2 5 Intake, IV Titration 411.079 Amount Heparin Sod,Pork in 0.45% 111.079 NaCl 25,000 unit In 0.45 % NaCl 1 250ml.bag @ 10. 94 UNITS/KG/HR 9.999 mls/ hr IV .Q24H [facility] Rx#: [id number] Sodium Chloride 0.9% 1, 300 000 ml In Empty Bag 1 bag @ 1 ML/KG/HR 91.4 mls/hr IV .[id number] [facility] Rx#: [id number] Oral 220 Output: Stool 1 Other: Voiding Method Toilet Toilet Toilet # Voids 1 - Labs CBC & Chem 7: 10/01/24 09:59 09/30/24 18:07 Labs: Abnormal Lab Results - Last 24 Hours (Table) 10/02/24 Range/Units 19:43 POC Glucose (mg/dL) 114 H (70-110) mg/dL Microbiology - Last 24 Hours (Table) 10/01/24 09:28 Nasal Screen MRSA/MSSA - Final Nasal Swab
--- NOTE | 2024-10-03 12:59 | PN ---
PROGRESS NOTE A 64-year-old white male, I have seen the patient covering for another physician. The patient is found to have anterior descending blockage requiring bypass scheduled for Saturday. Carotid ultrasound is negative. All the other workup so far had been negative. The patient remains stable. Good mood. Surgery wanted him to stay over the weekend. His vitals appear to be stable. Exam is essentially normal. Followup with possible bypass on Saturday for acute coronary artery disease with LAD obstruction requiring bypass. Prognosis guarded. Continue with blood pressure and cholesterol medicines. MMODL / IJN: [id number] /
--- NOTE | 2024-10-03 13:53 | P.CNPUL ---
History of Present Illness Consult date: 10/03/24 Chief complaint: Symptomatic coronary artery disease History of present illness: This is a 64-year-old male patient who is being seen preoperatively as the patient is scheduled to undergo coronary bypass surgery on 10/05/2024. The patient presented with chest pain and an abnormal stress test and he underwent a cardiac catheterization the patient was found to have 99% stenosis involving the LAD and a diagonal branch, and dominant RCA with 60 to 70% mid stenosis and totally occluded distal RCA with collaterals from the septals toward the PDA and PLV. This finding consultation was placed to cardiothoracic surgery for revascularization recommendations. Of note he did have a transthoracic echocardiogram completed revealing reduced left ventricular systolic function with EF 45 to 50%, mild to moderate mitral regurgitation and mild tricuspid regurgitation without pulmonary hypertension, there was no pericardial effusion and the aortic root and proximal ascending aorta more normal size. The patient otherwise doing well. No specific complaints. He is known to have hypertension hyperlipidemia. No respiratory difficulties for now. History of any chest pain for now. The chest x-ray from 10/02/2024 was reviewed and showed no acute cardiopulmonary process. CAT scan of the chest done on 10/01/2024 shows a 2 cm right thyroid nodule. Otherwise, the lungs showed some mild limited and linear scarring and reticulation in the right upper lobe with focal mild linear scarring in the lingula. Otherwise, no other significant abnormalities were noted. Minimal amount of plaques involving the thoracic aorta. The white cell count is at 5.8, he was 12.1 and a platelet count of 411. Normal thyroid function test. Normal UA. proBNP level was 1000. TSH is at 4.12. Good performance status. Review of Systems Constitutional: Denies chills, Denies fever Eyes: denies as per HPI, denies blurred vision, denies bulging eye, denies decreased vision, denies diplopia, denies discharge, denies dry eye, denies irritation, denies itching, denies pain, denies photophobia, denies loss of peripheral vision, denies loss of vision, denies tunnel vision/blind spots Ears: deny: decreased hearing, ear discharge, earache, tinnitus Ears, nose, mouth and throat: Reports as per HPI Breasts: absent: as per HPI, gynecomastia Cardiovascular: Reports chest pain Respiratory: Reports as per HPI Gastrointestinal: Reports as per HPI Genitourinary: Reports as per HPI Musculoskeletal: Reports as per HPI Integumentary: Reports as per HPI Neurological: Reports as per HPI Psychiatric: Reports as per HPI Endocrine: Reports as per HPI Hematologic/Lymphatic: Reports as per HPI Allergic/Immunologic: Reports as per HPI Past Medical History Past Medical History: Coronary Artery Disease (CAD), Hyperlipidemia, Hypertension History of Any Multi-Drug Resistant Organisms: None Reported Past Surgical History: Appendectomy, Hernia Repair Additional Past Surgical History / Comment(s): knee sx 2 right. 1 left, bilateral inguinal hernia repair, Past Anesthesia/Blood Transfusion Reactions: No Reported Reaction Past Psychological History: No Psychological Hx Reported Smoking Status: Never smoker Past Alcohol Use History: None Reported Past Drug Use History: None Reported - Past Family History Father Additional Family Medical History / Comment(s): from mesothelioma Mother Additional Family Medical History / Comment(s): from unknown cause although suspect from colon cancer Medications and Allergies Home Medications Medication Instructions Recorded Confirmed Type Losartan/Hydrochlorothiazide 1 tab PO DAILY 09/30/24 09/30/24 History [Losartan-Hctz 100-25 mg Tab] Allergies Allergy/AdvReac Type Severity Reaction Status Date / Time No Known Allergies Allergy Verified 09/30/24 14:09 Physical Exam Vitals: Vital Signs Temp Pulse Pulse Pulse Resp BP Pulse Ox 10/03/24 11:11 97.9 F 59 L 16 110/69 98 10/03/24 08:53 97.7 F 93 20 142/85 97 10/03/24 04:00 98.0 F 66 18 112/71 98 10/02/24 23:45 98.1 F 72 18 111/72 97 10/02/24 20:00 98.0 F 75 18 132/76 95 10/02/24 15:42 97.8 F 77 16 128/78 98 Intake and Output 10/02/24 10/03/24 10/03/24 22:59 06:59 14:59 Intake Total 720 Output Total 1 Balance -1 720 Intake: Oral 720 Output: Stool 1 Other: Voiding Method Toilet Toilet Toilet # Voids 1 2 Weight 91.2 kg The patient appeared well nourished and normally developed. Vital signs as documented. Head exam is unremarkable. No scleral icterus or corneal arcus noted. Neck is without jugular venous distension, thyromegaly, or carotid bruits. Carotid upstrokes are brisk bilaterally. Lungs are clear to auscultation and percussion. Cardiac exam reveals the PMI to be normally sized and situated. Rhythm is regular. First and second heart sounds normal. No murmurs, rubs or gallops. Abdominal exam reveals normal bowel sounds, no masses, no organomegaly and no aortic enlargement. Extremities are nonedematous and both femoral and pedal pulses are normal. Examination of the skin revealed no evidence of significant rashes, suspicious appearing nevi or other concerning lesions. Neurologically, the patient is awake and alert and the patient does not have any focal neurological deficit. Cranial nerves are essentially intact. Results - Laboratory Findings CBC and BMP: 10/01/24 09:59 09/30/24 18:07 PT/INR, D-dimer PT 11.1 sec (10.0-12.5) 10/01/24 09:59 INR 1.0 (<1.2) 10/01/24 09:59 Abnormal lab findings: Abnormal Labs 09/30/24 09/30/24 09/30/24 12:00 12:00 18:07 RBC Hgb 12.4 L Hct Lymphocytes # 0.9 L APTT BUN 24 H 21 H Glucose 108 H POC Glucose (mg/dL) Cholesterol 210.00 H LDL Cholesterol, Calc 145.4 H 09/30/24 10/01/24 10/01/24 18:07 09:59 09:59 RBC 4.15 L Hgb 11.9 L 12.1 L Hct 36.8 L 38.7 L Lymphocytes # 0.9 L APTT 31.1 H BUN Glucose POC Glucose (mg/dL) Cholesterol LDL Cholesterol, Calc 10/01/24 10/02/24 10/02/24 15:48 07:50 19:43 RBC Hgb Hct Lymphocytes # APTT 42.2 H 37.5 H BUN Glucose POC Glucose (mg/dL) 114 H Cholesterol LDL Cholesterol, Calc - Diagnostic Findings Chest x-ray: image reviewed CT scan - chest: image reviewed Assessment and Plan Plan: Symptomatic multivessel coronary artery disease, awaiting coronary bypass surgery. The patient underwent cardiac catheterization and he was found to have no left main disease, 99% stenosis involving the LAD and a diagonal branch, and dominant RCA with 60 to 70% mid stenosis and totally occluded distal RCA with collaterals from the septals toward the PDA and PLV.. Patient is going to undergo coronary bypass surgery on 10/05/2024. Mild LV dysfunction with ejection fraction 45% and moderate MR Hypertension Hyperlipidemia, LDL level is at 145 Thyroid nodule, normal thyroid function test. Plan Continue aspirin Continue metoprolol 25 mg p.o. twice a day Continue Lipitor 40 mg p.o. daily Overall respiratory status is stable. Will obtain a baseline spirometry to establish FEV1. The patient is currently on 98% pulse ox on room air oxygen. Chest x-ray was reviewed. CAT scans of the chest was reviewed. Will continue to follow and be involved in the postoperative care following bypass surgery. Patient provide incentive parameter. Patient is free of any chest pain at this point. Time with Patient: Greater than 30
[2024-10-03] MEDS: SENNOSIDES-DOCUSATE SODIUM 1 EACH TAB PO SCH (20:07)
[2024-10-04 07:47] LABS: Basophils % (A) 1 %; Eosinophils # (A) 0.1 k/uL (0-0.7); Eosinophils % (A) 2 %; HCT 39.8 % (39.0-53.0); HGB 12.7 gm/dL (13.0-17.5); Lymphocytes # (A) 1.2 k/uL (1.0-4.8); Lymphocytes % (A) 20 %; MCH 28.5 pg (25.0-35.0); MCHC 31.9 g/dL (31.0-37.0); MCV 89.3 fL (80.0-100.0); Mean Platelet Volume 7.3; Monocytes # (A) 0.3 k/uL (0-1.0); Monocytes % (A) 5 %; Neutrophils # (A) 4.1 k/uL (1.3-7.7); Neutrophils % (A) 70 %; Platelet Count 388 k/uL (150-450); RBC 4.45 m/uL (4.30-5.90); RDW 14.1 % (11.5-15.5); WBC 5.8 k/uL (3.8-10.6)
[2024-10-04 08:00] LABS: ALT 52 U/L (4-49); AST 48 U/L (17-59); African American GFR (CKD) 82 (>60 ml/min/1.73 sqM); Albumin 4.5 g/dL (3.5-5.0); Alkaline Phosphatase 76 U/L (38-126); Anion Gap 11 mmol/L; Blood Urea Nitrogen 22 mg/dL (9-20); Calcium 9.6 mg/dL (8.4-10.2); Carbon Dioxide 24 mmol/L (22-30); Chloride 105 mmol/L (98-107); Glucose 97 mg/dL (74-99); Magnesium 1.9 mg/dL (1.6-2.3); Non-African American GFR(CKD) 71 (>60 ml/min/1.73 sqM); Potassium 4.5 mmol/L (3.5-5.1); Sodium 140 mmol/L (137-145); Total Bilirubin 0.9 mg/dL (0.2-1.3); Total Protein 7.4 g/dL (6.3-8.2)
[2024-10-04 08:10] LABS: Partial Thromboplastin Time 24.7 sec (22.0-30.0); Prothrombin Time 11.1 sec (10.0-12.5)
--- NOTE | 2024-10-04 08:35 | P.PN ---
Subjective Progress Note Date: 10/04/24 Principal diagnosis: Coronary artery disease. History of hypertension, hyperlipidemia Patient was seen and examined with Dr. Stuart this morning sitting up on the couch in his room on 3 S. in no acute distress. Does state he had an episode of chest discomfort right in the center of his chest this morning, denies shortness of breath. Remains in sinus rhythm, hemodynamically stable. Patient has been ambulatory in his room. No other new concerns. Objective - Vital Signs Vital signs: Vital Signs Temp 98.2 F 10/04/24 07:49 Pulse 67 10/04/24 07:49 Resp 16 10/04/24 07:49 BP 133/82 10/04/24 07:49 Pulse Ox 98 10/04/24 07:49 FiO2 Intake & Output 10/03/24 10/04/24 10/04/24 18:59 06:59 18:59 Intake Total 960 Balance 960 Weight 90.9 kg Intake: Oral 960 Other: Voiding Method Toilet Toilet # Voids 2 4 - Exam CONSTITUTIONAL: Appears comfortable, cooperative, no acute distress RESPIRATORY: Lungs sounds clear bilaterally. Respirations even, nonlabored. Currently on room air with oxygen saturation 98%. Able to achieve 3750 mL on his incentive spirometry CARDIOVASCULAR: S1, S2 present. Regular rate and rhythm, sinus rhythm on telemetry. Palpable peripheral pulses bilaterally. No edema present GASTROINTESTINAL: Abdomen soft, nontender, nondistended. Active bowel sounds present 4 quadrants. Tolerating diet. Positive bowel movement 10/03 GENITOURINARY: Continues to void INTEGUMENTARY: Skin is warm and dry with evidence of good perfusion NEUROLOGIC: Cranial nerves II through XII intact MUSKULOSKELETAL: Able to move all extremities, strength equal bilaterally, gait normal PSYCHIATRIC: Alert and oriented to person place and time, appropriate affect, intact judgment and insight - Allied health notes Allied health notes reviewed: nursing - Labs CBC & Chem 7: 10/04/24 07:14 10/04/24 07:14 Labs: Abnormal Lab Results - Last 24 Hours (Table) 10/04/24 10/04/24 Range/Units 07:14 07:14 Hgb 12.7 L (13.0-17.5) gm/dL BUN 22 H (9-20) mg/dL ALT 52 H (4-49) U/L Assessment and Plan Assessment: Coronary artery disease History of hypertension Hyperlipidemia, cholesterol 210, LDL 145 Plan: Continue to maximize medical therapy with aspirin, statin, beta-ryan therapy Increase activity, ambulate as tolerated Encourage incentive spirometry use Our plan is for surgical revascularization with left internal mammary artery, left radial artery, endoscopic vein harvest with left atrial appendage ligation by Dr. Troncoso on 10/05/24 N.p.o. after midnight Continue to reinforce preoperative teaching Medical management of other comorbidities per internal medicine, cardiology More recommendations to follow
[2024-10-04] MEDS: ISOSORBIDE MONONITRATE ER 30 MG TAB.ER.24H PO SCH (11:21)
--- NOTE | 2024-10-04 12:08 | PN ---
PROGRESS NOTE A 64-year-old white male, scheduled for surgery tomorrow bypass surgery. Vital signs appear to be stable. He has been up ambulating down the prado twice a day. He is having no chest pain or shortness of breath. ASSESSMENT: Acute coronary artery disease, status post heart catheterization with LAD blockage. Bypass tomorrow. He appears to be stable at this point. MMODL / IJN: [id number] /
--- NOTE | 2024-10-04 12:12 | P.PN ---
Subjective Progress Note Date: 10/04/24 HISTORY OF PRESENT ILLNESS: This is a 64-year-old male with a past medical history significant for hype rtension. 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 Patient presented to the hospital today for an outpatient walking stress test. Patient states he had 2 episodes in 2023, 1 in May and 1 in June where he "felt his heart beating". He does not necessarily describe it as chest discomfort. He states that he was at routine follow-up visit with Dr. Hart last month when he told him about the 2 episodes and he then ordered a stress test. The patient states since that episode in June 2024, he has had no further episodes. Patient states he is usually very active without symptoms. He denies any known history of coronary artery disease. Denies any family history of premature coronary artery disease. He is a non-smoker. Patient's initial EKG revealed nonspecific ST-T wave changes. Upon exercise, patient developed significant ST elevation in inferior leads with reciprocal changes. The patient denied any chest pain or pressure. Denied any shortness of breath. The patients EKG changes did improve with rest. 10/01 Yesterday, patient underwent cardiac catheterization with Dr. Zaman which revealed severe stenosis in the proximal LAD involving the large diagonal bran ch, chronically occluded distal RCA with [id number] collaterals, mild disease in the left circumflex and mildly elevated LVEDP. Patient has been admitted to the cardiac stepdown unit and a consult is in place for cardiothoracic surgery evaluation for CABG. Patient is currently pain-free. Blood pressure 132/82, heart rate 82, pulse ox 100% on room air. Repeat blood work reveals hemoglobin 12.1. Echocardiogram reveals EF 45 to 50% with mildly impaired left ventricular systolic function and segmental wall motion abnormality. Mild to moderate mitral regurgitation and mild tricuspid regurgitation with no evidence of pulmonary hypertension. 10/02 Patient seen and examined. Patient has been seen evaluated by cardiothoracic surgery for CABG and is scheduled for Saturday. Patient denies chest pain no shortness of breath. Patient has been quite active and walking. Blood pressure 122/75, heart rate 60, pulse ox 99% on room air. Repeat chest x-ray reveals no acute cardiopulmonary process. 10/03 Patient seen and examined. No complaints of chest pain or chest pressure. No shortness of breath. Patient remains quite active. Heparin drip was discontinued will start patient on heparin subcu. Medication changes were made yesterday to discontinue losartan/hydrochlorothiazide and started on hydralazine. Blood pressure 142/85, heart rate 93, pulse ox 97% on room air. 10/04 Patient seen and examined. Patient had an episode of chest pain like a finger was pushing on the left upper/mid chest area. It resolved on its own. Blood pressure 112/73, heart rate 60, pulse ox 97% on room air. Repeat blood work reveals hemoglobin 12.7, BUN 22 creatinine 1.08. Patient remains scheduled for CABG on Saturday. PHYSICAL EXAM: VITAL SIGNS: Reviewed. GENERAL: Well-developed in no acute distress. LUNGS: Respirations even and unlabored. Lungs essentially clear to auscultation bilaterally. HEART: Regular rate and rhythm. S1 and S2 heard. ABDOMEN: Soft. Nondistended. Nontender. EXTREMITIES: No clubbing or cyanosis. Peripheral pulses intact. No lower extremity edema ASSESSMENT: Abnormal EKG with ST elevation in inferior leads with reciprocal changes with exercise Coronary artery disease found on cardiac catheterization, scheduled for CABG on Saturday, 10/05 Hypertension Hyperlipidemia PLAN: Continue patient on aspirin 81 mg daily, atorvastatin 40 mg at bedtime, hydralazine, Lopressor 25 mg twice daily Add Imdur 30 mg daily Cardiothoracic surgery evaluation for CABG scheduled for Saturday Further recommendations pending patient course Nurse practitioner note has been reviewed by physician. Signing provider agrees with the documented findings, assessment, and plan of care documented by PLASTICATOR as a scribe. Objective - Vital Signs Vital signs: Vital Signs Temp 98.2 F 10/04/24 07:49 Pulse 67 10/04/24 07:49 Resp 16 10/04/24 07:49 BP 133/82 10/04/24 07:49 Pulse Ox 98 10/04/24 07:49 FiO2 Intake & Output 10/03/24 10/04/24 10/04/24 18:59 06:59 18:59 Intake Total 960 448 Balance 960 448 Weight 90.9 kg Intake: Oral 960 448 Other: Voiding Method Toilet Toilet Toilet # Voids 2 4 2 - Labs CBC & Chem 7: 10/04/24 07:14 10/04/24 07:14 Labs: Abnormal Lab Results - Last 24 Hours (Table) 03/10/04/24 10/04/24 Range/Units 07:14 07:14 07:18 Hgb 12.7 L (13.0-17.5) gm/dL BUN 22 H (9-20) mg/dL ALT 52 H (4-49) U/L Crossmatch See Detail
--- NOTE | 2024-10-04 13:40 | P.PN ---
Subjective Progress Note Date: 10/04/24 This is a 64-year-old male patient who is being seen preoperatively as the patient is scheduled to undergo coronary bypass surgery on 10/05/2024. The patient presented with chest pain and an abnormal stress test and he underwent a cardiac catheterization the patient was found to have 99% stenosis involving the LAD and a diagonal branch, and dominant RCA with 60 to 70% mid stenosis and totally occluded distal RCA with collaterals from the septals toward the PDA and PLV. This finding consultation was placed to cardiothoracic surgery for revascularization recommendations. Of note he did have a transthoracic echocardiogram completed revealing reduced left ventricular systolic function with EF 45 to 50%, mild to moderate mitral regurgitation and mild tricuspid regurgitation without pulmonary hypertension, there was no pericardial effusion and the aortic root and proximal ascending aorta more normal size. The patient otherwise doing well. No specific complaints. He is known to have hypertension hyperlipidemia. No respiratory difficulties for now. History of any chest pain for now. The chest x-ray from 10/02/2024 was reviewed and showed no acute cardiopulmonary process. CAT scan of the chest done on 10/01/2024 shows a 2 cm right thyroid nodule. Otherwise, the lungs showed some mild limited and linear scarring and reticulation in the right upper lobe with focal mild linear scarring in the lingula. Otherwise, no other significant abnormalities were noted. Minimal amount of plaques involving the thoracic aorta. The white cell count is at 5.8, he was 12.1 and a platelet count of 411. Normal thyroid function test. Normal UA. proBNP level was 1000. TSH is at 4.12. Good perf ormance status. On 10/04/2024, the patient has no specific complaints and the patient is hemodynamic stable and free of any chest pain. Awaiting surgery for tomorrow. The white cell count of 5.8 with hemoglobin 12.7 and a platelet count of 388. Normal coagulation profile. Normal electrolytes. BUN is 22 with a creatinine of 1.08. LFTs are normal. The patient continues to use incentive spirometer. He is quite active. No cardiac arrhythmias have been noted. Objective - Vital Signs Vital signs: Vital Signs Temp 98.2 F 10/04/24 07:49 Pulse 67 10/04/24 07:49 Resp 16 10/04/24 07:49 BP 133/82 10/04/24 07:49 Pulse Ox 98 10/04/24 07:49 FiO2 Intake & Output 10/03/24 10/04/24 10/04/24 18:59 06:59 18:59 Intake Total 960 448 Balance 960 448 Weight 90.9 kg Intake: Oral 960 448 Other: Voiding Method Toilet Toilet Toilet # Voids 2 4 2 - Labs CBC & Chem 7: 10/04/24 07:14 10/04/24 07:14 Labs: Abnormal Lab Results - Last 24 Hours (Table) 10/04/24 10/04/24 10/04/24 Range/Units 07:14 07:14 07:18 Hgb 12.7 L (13.0-17.5) gm/dL BUN 22 H (9-20) mg/dL ALT 52 H (4-49) U/L Crossmatch See Detail Assessment and Plan Plan: Symptomatic multivessel coronary artery disease, awaiting coronary bypass surgery. The patient underwent cardiac catheterization and he was found to have no left main disease, 99% stenosis involving the LAD and a diagonal branch, and dominant RCA with 60 to 70% mid stenosis and totally occluded distal RCA with collaterals from the septals toward the PDA and PLV.. Patient is going to undergo coronary bypass surgery on 10/05/2024. Mild LV dysfunction with ejection fraction 45% and moderate MR Hypertension Hyperlipidemia, LDL level is at 145 Thyroid nodule, normal thyroid function test. Plan Clinically stable and unchanged the patient remains free of any chest pain Will proceed forward with coronary bypass surgery in a.m. Continue aspirin Continue metoprolol 25 mg p.o. twice a day Continue Lipitor 40 mg p.o. daily Overall respiratory status is stable. Will obtain a baseline spirometry to establish FEV1. The patient is currently on 98% pulse ox on room air oxygen. Chest x-ray was reviewed. CAT scans of the chest was reviewed. Will continue to follow and be involved in the postoperative care following bypass surgery. Patient provide incentive parameter. Patient is free of any chest pain at this point.
[2024-10-05] MEDS: METOPROLOL TARTRATE 12.5 MG TAB PO ONE (04:47)
[2024-10-05] MEDS: ASPIRIN 325 MG TAB PO ONE (04:47)
[2024-10-05] MEDS: ATORVASTATIN 10 MG TAB PO ONE (04:47)
[2024-10-05] MEDS ORDERED: NOREPINEPHRINE 4 MG in SODIUM CHLORIDE 0.9% 250 ML IV SCH (05:00)
[2024-10-05 06:20] LABS: Glucose,Whole Blood 100 mg/dL (70-110)
[2024-10-05] MEDS: IV FLUID CONTINUATION 1,000 ML IV ONE (06:20)
[2024-10-05] MEDS ORDERED: WATER FOR INJECTION, STERILE 10 ML VIAL IV ONE (07:45)
[2024-10-05] MEDS ORDERED: NITROGLYCERIN-D5W PMX 50 MG/250 ML BOTTLE IV ONE (07:45)
[2024-10-05] MEDS ORDERED: PROPOFOL 10 MG/ML 20 ML VIAL IV ONE (07:45)
[2024-10-05] MEDS ORDERED: HEPARIN SODIUM,PORCINE 10,000 UNIT/ML 1 ML VIAL ONE (07:45)
[2024-10-05] MEDS ORDERED: PROTAMINE SULFATE 10 MG/ML 25 ML VIAL IV ONE (07:45)
[2024-10-05] MEDS ORDERED: TRANEXAMIC 1,000 MG/100ML-NACL PREMIX BAG ONE (07:45)
[2024-10-05] MEDS ORDERED: fentaNYL (PF) 50 MCG/ML 50 ML VIAL ONE (07:45)
[2024-10-05] MEDS ORDERED: INSULIN REGULAR 100 UNIT/ML VIAL (IV) ONE (07:45)
[2024-10-05] MEDS ORDERED: SODIUM BICARB 8.4% 50 ML SYR (1 MEQ/ML) ONE (07:45)
[2024-10-05] MEDS ORDERED: ePHEDrine 50 MG/ML 1 ML VIAL ONE (07:45)
[2024-10-05] MEDS ORDERED: MIDAZOLAM HCL 10 MG/10 ML VIAL ONE (07:45)
[2024-10-05] MEDS ORDERED: VECURONIUM 10 MG VIAL IV ONE (07:45)
[2024-10-05] MEDS ORDERED: CALCIUM CHLORIDE 100 MG/ML 10 ML SYRINGE ONE (07:45)
[2024-10-05 09:02] LABS: ABG Base Excess -1.7 mmol/L; ABG Glucose Whole Blood 98 mg/dL (75-99); ABG HCO3 23 mmol/L (21-25); ABG Hematocrit 29 % (34.0-46.0); ABG Ionized Calcium 4.8 mg/dL (4.5-5.3); ABG Lactic Acid Whole Blood 1.1 mmol/L (0.5-1.6); ABG Oxygen Saturation 98.8 % (94-97); ABG PCO2 36 mmHg (35-45); ABG PH 7.41 (7.35-7.45); ABG PO2 186 mmHg (83-108); ABG Sodium Whole Blood 140 mmol/L (135-146); ABG TCO2 21 mmol/L (19-24)
[2024-10-05 09:32] LABS: ABG Base Excess -2.6 mmol/L; ABG Glucose Whole Blood 106 mg/dL (75-99); ABG HCO3 23 mmol/L (21-25); ABG Hematocrit 30 % (34.0-46.0); ABG Ionized Calcium 4.9 mg/dL (4.5-5.3); ABG Lactic Acid Whole Blood 0.7 mmol/L (0.5-1.6); ABG Oxygen Saturation 98.6 % (94-97); ABG PCO2 45 mmHg (35-45); ABG PH 7.32 (7.35-7.45); ABG PO2 183 mmHg (83-108); ABG Sodium Whole Blood 141 mmol/L (135-146); ABG TCO2 22 mmol/L (19-24)
[2024-10-05] MEDS: PAPAVERINE 360 MG in SODIUM CHLORIDE 0.9% 90 ML IV ONE (09:40)
[2024-10-05] MEDS: SODIUM CHLORIDE 0.9% 500 ML 500 ML with HEPARIN SODIUM,PORCINE (1 ML) 5,000 UNIT IV ONE (09:40)
[2024-10-05] MEDS: ceFAZolin 1,000 MG in SODIUM CHLORIDE 0.9% 1,000 ML IRRIGATION ONE (09:41)
--- NOTE | 2024-10-05 10:06 | P.ANPRN ---
Procedure Note - Anesthesia - Invasive Line Right Central Line Time Out Performed: Yes (0734) Date of Procedure: 10/05/24 Time of Procedure: 07:35 Location of Patient: Phase I Preparation: Sterile Prep, Sterile Dressing Central Line Location: Internal Jugular (right ij cordis) Ultrasound Used: Yes Purpose - Visualization and Identification of Vasculature: Yes Needle Guage: 18g angio Image Stored and Saved: Yes Narrative: Invasive line placement per sterile protocol utilized. Anesthesia note Procedure: Right internal jugular central venous catheter insertion: 8.5-Cambodian Cordis Sterile protocol followed. Right neck prepped. Ultrasound used. Lidocaine 1% used. Using ultrasound local anesthetic was instilled site over right Internal Jugular vein. Angiocath was used to gain access via ultrasound. Once free flow non-pulsatile blood flow was confirmed, 12 inch extension tubing was then placed on Angiocath. Once central venous pressure was confirmed, J-wire was then placed through Angiocath. Angiocath was then withdrawn. Local was instilled at J-wire site. Small skin mynor was then made with provided sterile scalpel. 8.5- Cambodian Cordis was then inserted over the wire while maintaining control of wire at all times. Uneventful insertion with dilation. Free flow nonpulsatile blood flow through Cordis. Hooked up to IV tubing. Secured with suture. Dressings applied. Drapes Removed. Attempts x1.
--- NOTE | 2024-10-05 10:07 | P.ANPRN ---
Procedure Note - Anesthesia - Invasive Line Right Griswold Daquan Time Out Performed: Yes (734) Date of Procedure: 10/05/24 Time of Procedure: 07:41 Location of Patient: Phase I Preparation: Sterile Prep, Sterile Dressing Griswold Daquan Line Location: Internal Jugular (Right IJ) Ultrasound Used: No Purpose - Visualization and Identification of Vasculature: No Image Stored and Saved: No Narrative: Invasive line placement per sterile protocol utilized. Anesthesia note Procedure right Griswold-Daquan catheter placed through right internal jugular central venous catheter Sterile protocol maintained from previous procedure. Griswold-Daquan catheter sterilely placed in sheath and flushed prior to insertion. After advancing 15 cm Griswold-Daquan catheter was then slowly inserted with balloon up. Advanced through CVP, RV to PA waveform. Griswold-Daquan catheter wedged around 52 cm. Balloon down. Catheter withdrawn 5 cm. . No wedge. Proximal and distal sites locked on sheath. Attempts x1. Sterile drapes removed and dressings applied.
--- NOTE | 2024-10-05 10:09 | P.ANPRN ---
Procedure Note - Anesthesia - DENILSON Intraop Pre Bypass DENILSON Intraop - Anesthesia Indication: Coronary artery disease Date of Procedure: 10/05/24 Pre-operative Diagnosis: Coronary artery disease Post-operative Diagnosis: Same Surgeon: Kain Troncoso Left Ventricle: Hypokinesis of the inferior segments. Ejection Fraction: Normal (50%) Regional Wall Motion Abnormalities: Other (Hypokinesis of the inferior segments) Left Ventricle Hypertrophy: No R. Ventricle Function: Normal Anatomy: Trileaflet Aortic Stenosis: None Aortic Regurgitation: None Mitral Stenosis: None Mitral Regurgitation: Mild Tricuspid Stenosis: None Tricuspid Regurgitation: Mild Pulmonic Stenosis: None Pulmonic Regurgitation: None R. Atrial Dilation: No R. Atrial PFO: No L. Atrial Dilation: No Aortic Dissection: No Aortic Calcification: None Plural Effusion: None
[2024-10-05 11:21] LABS: ABG Base Excess -3.8 mmol/L; ABG Glucose Whole Blood 107 mg/dL (75-99); ABG HCO3 21 mmol/L (21-25); ABG Ionized Calcium 4.2 mg/dL (4.5-5.3); ABG Lactic Acid Whole Blood 1.3 mmol/L (0.5-1.6); ABG Oxygen Saturation 99.2 % (94-97); ABG PCO2 35 mmHg (35-45); ABG PH 7.38 (7.35-7.45); ABG PO2 356 mmHg (83-108); ABG Potassium Whole Blood 4.2 mmol/L (3.4-4.5); ABG Sodium Whole Blood 137 mmol/L (135-146); ABG TCO2 21 mmol/L (19-24)
[2024-10-05 11:52] LABS: ABG Base Excess -1.7 mmol/L; ABG Glucose Whole Blood 115 mg/dL (75-99); ABG HCO3 23 mmol/L (21-25); ABG Ionized Calcium 4.2 mg/dL (4.5-5.3); ABG Lactic Acid Whole Blood 1.1 mmol/L (0.5-1.6); ABG Oxygen Saturation >99.4 % (94-97); ABG PCO2 39 mmHg (35-45); ABG PH 7.38 (7.35-7.45); ABG PO2 402 mmHg (83-108); ABG Potassium Whole Blood 5.1 mmol/L (3.4-4.5); ABG Sodium Whole Blood 138 mmol/L (135-146)
[2024-10-05 12:20] LABS: ABG Base Excess -1.8 mmol/L; ABG Glucose Whole Blood 131 mg/dL (75-99); ABG HCO3 23 mmol/L (21-25); ABG PCO2 41 mmHg (35-45); ABG PH 7.37 (7.35-7.45); ABG PO2 300 mmHg (83-108); ABG Potassium Whole Blood 5.3 mmol/L (3.4-4.5); ABG Sodium Whole Blood 138 mmol/L (135-146); ABG TCO2 23 mmol/L (19-24)
[2024-10-05 12:57] LABS: ABG Base Excess -3.1 mmol/L; ABG Glucose Whole Blood 130 mg/dL (75-99); ABG HCO3 23 mmol/L (21-25); ABG Ionized Calcium 4.3 mg/dL (4.5-5.3); ABG Oxygen Saturation 99.2 % (94-97); ABG PCO2 42 mmHg (35-45); ABG PH 7.33 (7.35-7.45); ABG PO2 297 mmHg (83-108); ABG Potassium Whole Blood 5.2 mmol/L (3.4-4.5); ABG Sodium Whole Blood 138 mmol/L (135-146); ABG TCO2 22 mmol/L (19-24)
--- NOTE | 2024-10-05 13:28 | P.ANPRN ---
Procedure Note - Anesthesia - DENILSON Intraop Post Bypass DENILSON Intraop Post Bypass Procedure Performed: Open heart bypass Left Ventricle: EF normal Ejection Fraction: Normal Regional Wall Motion Abnormalities: Other (No changes. Still hypokinetic in the inferior wall) R. Ventricle Function: Normal Aortic Valve: Unchanged Mitral Valve: Unchanged Tricuspid: Unchanged Pulmonic: Unchanged Aortic Dissection: No
[2024-10-05 13:45] LABS: ABG Base Excess -2.9 mmol/L; ABG Glucose Whole Blood 116 mg/dL (75-99); ABG HCO3 23 mmol/L (21-25); ABG Hematocrit 26 % (34.0-46.0); ABG Ionized Calcium 4.4 mg/dL (4.5-5.3); ABG Lactic Acid Whole Blood 1.7 mmol/L (0.5-1.6); ABG Oxygen Saturation 98.3 % (94-97); ABG PCO2 41 mmHg (35-45); ABG PH 7.35 (7.35-7.45); ABG PO2 126 mmHg (83-108); ABG Potassium Whole Blood 4.3 mmol/L (3.4-4.5); ABG Sodium Whole Blood 139 mmol/L (135-146); ABG TCO2 22 mmol/L (19-24)
[2024-10-05 13:51] LABS: Allen Test Performed? No
[2024-10-05 13:52] LABS: Allen Test Performed? No
[2024-10-05 13:52] LABS: ABG Hematocrit 20 % (34.0-46.0); Allen Test Performed? No
[2024-10-05 13:53] LABS: ABG Hematocrit 22 % (34.0-46.0); Allen Test Performed? No
[2024-10-05 13:53] LABS: ABG Hematocrit 21 % (34.0-46.0); ABG Ionized Calcium 4.3 mg/dL (4.5-5.3)
[2024-10-05 13:54] LABS: Allen Test Performed? No
[2024-10-05 13:54] LABS: ABG Hematocrit 21 % (34.0-46.0); ABG Lactic Acid Whole Blood 2.5 mmol/L (0.5-1.6); Allen Test Performed? No
[2024-10-05 13:54] LABS: Allen Test Performed? No
--- NOTE | 2024-10-05 14:23 | P.OP ---
Date of Procedure: 10/05/24 Preoperative Diagnosis: Triple-vessel coronary artery disease with unstable angina, mild left ventricular dysfunction, evidence of an old inferior wall myocardial infarction, hypertension, hyperlipidemia Postoperative Diagnosis: Same Procedure(s) Performed: 1Triple-vessel coronary artery bypass grafting using the in situ left intramammary artery to the left anterior descending artery, left radial artery from the aorta to the diagonal artery, reverse saphenous vein graft from the aorta to the posterior descending artery 2exclusion of the left atrial appendage using a 35mm AtriClip 3endoscopic harvesting of the left radial artery 4endoscopic harvesting of the left greater saphenous vein 5graft flow measurement using the Time Bomb Deals system 6intraoperative transesophageal echocardiogram and epiaortic scanning Implants: 35 mm AtriClip Anesthesia: LUCRECIAA Surgeon: Kain Troncoso Gear Keeper #1: Ankur Sky Gear Keeper #2: Peter Rosales Pathology: none sent Condition: stable Disposition: ICU Indications for Procedure: Patient is a 64-year-old gentleman who has been complaining of chest pain over 2-3 episodes since June. Stress test was grossly positive prompting admitting the patient to the hospital. Cardiac markers were negative. Cardiac catheterization followed and that showed a totally occluded collateralized right coronary artery, severe proximal stenosis of the left anterior descending artery as well as the diagonal artery. The high diagonal artery seems to be spared. Echo showed mild left ventricular dysfunction with inferior hypokinesia. No significant mitral valve regurgitation. Patient has been taken today for coronary artery bypass grafting. The STS risk score was discussed with him he understood it and agreed to proceed. Operative Findings: Good conduits and targets. Excellent graft flows x 3. Evidence of an old inferior wall myocardial infarction with mild left ventricular dysfunction and no significant mitral valve regurgitation. Description of Procedure: Patient in supine position in the preoperative holding area, right internal jugular [place]-Daquan catheter and the right radial arterial line were placed. Patient had normal PA pressure and good cardiac index. Subsequently was brought to the operating room where general endotracheal anesthesia was induced uneventfully. A Morrow catheter was inserted. The chest, abdomen, both lower extremity and the left upper extremity were prepped and draped using ChloraPrep. Ioban was used to cover the skin. Patient received 2 g of cefazolin intravenously. Transesophageal echocardiogram confirmed the preoperative finding of inferior hypokinesia and mild mitral valve regurgitation. Midline sternotomy was performed and the bone was reasonably dense. No bone wax was used. The left hemisternum was elevated and the left internal mammary artery was harvested in a semiskeletonized fashion using low-level cautery. Left pleura was intentionally open in this process and was drained with a 19 [place] Marv drain. There was a breach in the right pleura which was also drained with another 19 [place] Marv drain. Patient was given 5008 of heparin and the mammary artery was double clipped distally before his bifurcation and had excellent full flow in it and was around 2 mm in diameter. In the same setting the left ala artery was exposed at the wrist and a clamping trial revealed preserved signal in the left index O2 saturation probe. Subsequently the artery was harvested endoscopically without using a tourniquet. Forearm incisions were closed over a drain. The radial artery was prepared by incising the fascia all along its volar aspect and clipping all its branches. It was of excellent quality around 3 mm in diameter. Also in the same setting the left greater saphenous vein was harvested endoscopically from groin to knee level after administration of 2500 units of heparin. Leg incisions were closed over a drain. The vein appeared to be of excellent quality around 4 mm in diameter. The Ankeney sternal retractor was used. Thick mediastinal fat was transected between 2 ties and epiaortic scanning ruled out any protruding atheroma in the ascending aorta. Pericardium was open in an inverted T fashion and pericardial cradle was created. Findings within normal soft short aorta and normal-sized heart with evidence of an old inferior wall myocardial infarction. After systemic heparinization after placement of respective pledgeted pursestring aortic cannulation in the proximal arch with a 21 [place] slow flow cannula and venous cannulation via the right atrial appendage with a 29/37 [place] cannula was performed. Antegrade as well as retrograde cardioplegia catheter were placed. Cardiopulmonary bypass was initiated and patient temperature was allowed to drift down to 34 C. With a heart empty we looked at the targets and appeared that the second diagonal artery, the left and descending artery and the posterior descending artery would be the site for bypass. Aorta was clamped and during aortic clamping Myocard protection was achieved and initial dose of 800 cc of antegrade cold blood cardioplegia with adequate arrest at 350 cc followed by 300 cc of retrograde cold blood cardioplegia. All subsequent doses were given retrograde at 15 minutes interval. We started by excluding the left atrial appendage by deploying a 35mm AtriClip at its base. The first this anastomosis was during a good segment of vein and the 1.5 mm proximal posterior descending artery using Prolene 7 0 in continuous fashion. The second distal anastomosis was between the radial artery which was an excellent conduit and the 1.7 m second diagonal artery using Prolene 7 0 in continuous fashion. The third and last this anastomosis was between the in situ left intramammary artery that passed in a deep groove in the left pleuropericardial fat and anastomosed to the mid left anterior sending artery where it was around 1.75 mL in diameter using Prolene 7 0 continuous fashion. I used a 1 mm shunt in all distal anastomosis. Satisfied with the distal anastomosis rewarming was started as we punched out 2 buttons of the ascending aorta and performed the 2 proximal stenosis of the radial artery and the vein graft separately using running Prolene. Patient was given 8 ounces of warm blood via the retrograde route and perfusion had been reestablished via the mammary artery as were performing the last proximal anastomosis. He was given lidocaine and magnesium. He was placed in Trendelenburg position and de-airing maneuvers were pursued before unclamping the aorta. Patient regained spontaneous sinus rhythm and the EKG was quite normal upfront. After around 15 minutes of reperfusion we were able to wean off cardiac bypass without the need of any inotropic or vasopressor support. DENILSON showed good left ventricular function basically what we started with. At this point we proceeded the graft flow measurement using the Medi stim system. A 4 mm probe was selected and the floor the vein graft to the posterior descending artery was 98 mL/min, pulsatility index of 1.3 diastolic filling of 62%. The flow in the radial artery to the diagonal artery was 92 mL/min, pulsatility index of 1.5 diastolic filling of 52%. The flow into the mammary artery to the left anterior descending artery was 135 mm/min, pulsatility index of 1.5 diastolic filling of 56% pulsatility index of 1.5 diastolic filling of 56% all showing excellent functioning graft. With that pump suckers were stopped and test dose than full dose protamine was given. Decannulation followed. 2 monopolar atrial pacing wires were affixed to the respective pursestring of the right atrium. X2 19 [place] Marv drain were left substernally. Pericardial fat was approximated over the graft aorta and right ventricle. After ensuring adequate hemostasis hemodynamic after correct sponge instrument and needle count, the sternum was closed using 5 [id number] [place] cable after interposing fibrillar between the sternal edges. Thorough engaged with cefazolin followed. The vessel closure proceeded in layers. Skin glue was applied. Patient did not receive any blood But received 700 cc of Cell Saver blood. She transferred to the ICU in stable condition on low-dose nitroglycerin with excellent hemodynamics.
[2024-10-05 14:36] LABS: Glucose,Whole Blood 89 mg/dL (70-110)
[2024-10-05] MEDS: NITROGLYCERIN-D5W PMX 50 MG in DEXTROSE/WATER 1 250ML.BAG IV SCH (14:40)
[2024-10-05] MEDS: CLEVIDIPINE BUTYRATE 25 MG in EMPTY BAG 1 BAG IV SCH (14:50)
[2024-10-05] MEDS ORDERED: Magnesium Replacement Protocol 1 EACH MISC MISCELLANE PRN (14:51)
[2024-10-05] MEDS ORDERED: DEXTROSE 50% SYRINGE 50 ML IVP PRN ×2 (14:51)
[2024-10-05] MEDS ORDERED: METOCLOPRAMIDE 5 MG/ML 2 ML VIAL IVP PRN (14:51)
[2024-10-05] MEDS ORDERED: ONDANSETRON 4 MG/2 ML VIAL IVP PRN (14:51)
[2024-10-05] MEDS ORDERED: CALCIUM GLUCONATE IN NACL 2 GM in SALINE 1 100ML.BAG IVPB PRN (14:51)
[2024-10-05] MEDS ORDERED: Phosphorus Replacement Protoco 1 EACH MISC MISCELLANE PRN (14:51)
[2024-10-05] MEDS ORDERED: IPRATROPIUM-ALBUTEROL 3 ML NEB INHALATION PRN (14:51)
[2024-10-05] MEDS ORDERED: hydrALAZINE HCL 20 MG/ML 1 ML VIAL IVP PRN (14:51)
[2024-10-05] MEDS ORDERED: DEXMEDETOMIDINE/0.9% NACL(PMX) 400 MCG in EMPTY BAG 1 BAG IV SCH (14:51)
[2024-10-05] MEDS ORDERED: AMIODARONE 450 MG in DEXTROSE 5% IN WATER 250 ML IV PRN (14:51)
[2024-10-05] MEDS ORDERED: BENZOCAINE/MENTHOL LOZENG 1 EACH LOZENGE MUCOUS MEM PRN (14:51)
[2024-10-05] MEDS ORDERED: Potassium Replacement Protocol 1 EACH MISC MISCELLANE PRN (14:51)
[2024-10-05 15:17] LABS: ABG Base Excess -2.6 mmol/L; ABG HCO3 22 mmol/L (21-25); ABG Oxygen Saturation >100.0 % (94-97); ABG PCO2 37 mmHg (35-45); ABG PH 7.39 (7.35-7.45); ABG PO2 360 mmHg (83-108); ABG TCO2 23 mmol/L (19-24); Allen Test Performed? Yes
--- NOTE | 2024-10-05 15:21 | XR ---
EXAMINATION TYPE: XR chest 1V portable DATE OF EXAM: 10/05/2024 3:04 PM COMPARISON: Chest radiographs from 10/02/2024 CLINICAL INDICATION: Male, 64 years old with history of Post op cabg; [facility] TECHNIQUE: XR chest 1V portable Frontal view of the chest. FINDINGS: Lungs/Pleura: There is no evidence of pleural effusion, focal consolidation, or pneumothorax. Pulmonary vascularity: Unremarkable. Heart/mediastinum: Cardiomediastinal silhouette is unremarkable. Two lead cardiac conduction device o verlying the left hemithorax with lead tips projecting over the right ventricle and right atrium. Musculoskeletal: No acute osseous pathology. Other findings: None Lines/Tubes: Endotracheal tube with distal tip 3.1cm above the kristyn. Drainage tubes with tips projecting over the mediastinum. There is a [place]-Daquan catheter with tip projecting over the spine. Bilateral thoracotomy tubes are present without evidence of pneumothorax. IMPRESSION: Postprocedural changes of mild pulmonary edema. Support tubes in satisfactory position. [facility], , 10/05/2024 3:19 PM
[2024-10-05] MEDS: IPRATROPIUM-ALBUTEROL 3 ML NEB INHALATION SCH (15:22)
[2024-10-05 15:34] LABS: Ionized Calcium 4.4 mg/dL (4.5-5.3)
[2024-10-05 15:35] LABS: Basophils % (A) 0 %; Eosinophils % (A) 0 %; HCT 25.6 % (39.0-53.0); Lymphocytes # (A) 0.5 k/uL (1.0-4.8); Lymphocytes % (A) 8 %; MCH 29.1 pg (25.0-35.0); MCHC 32.2 g/dL (31.0-37.0); MCV 90.6 fL (80.0-100.0); Mean Platelet Volume 7.7; Monocytes # (A) 0.3 k/uL (0-1.0); Monocytes % (A) 4 %; Neutrophils # (A) 5.8 k/uL (1.3-7.7); Neutrophils % (A) 87 %; RBC 2.82 m/uL (4.30-5.90); RDW 14.2 % (11.5-15.5); WBC 6.7 k/uL (3.8-10.6)
[2024-10-05 15:43] LABS: ALT 28 U/L (4-49); AST 39 U/L (17-59); African American GFR (CKD) >90 (>60 ml/min/1.73 sqM); Albumin 3.1 g/dL (3.5-5.0); Alkaline Phosphatase 35 U/L (38-126); Anion Gap 6 mmol/L; Blood Urea Nitrogen 20 mg/dL (9-20); Calcium 7.6 mg/dL (8.4-10.2); Carbon Dioxide 23 mmol/L (22-30); Chloride 107 mmol/L (98-107); Glucose 116 mg/dL (74-99); Magnesium 2.3 mg/dL (1.6-2.3); Non-African American GFR(CKD) >90 (>60 ml/min/1.73 sqM); Potassium 4.5 mmol/L (3.5-5.1); Sodium 136 mmol/L (137-145); Total Bilirubin 0.8 mg/dL (0.2-1.3); Total Protein 4.9 g/dL (6.3-8.2)
[2024-10-05] MEDS: SODIUM CHLORIDE 0.9% 1,000 ML IV SCH (15:48)
[2024-10-05 15:49] LABS: HGB 8.2 gm/dL (13.0-17.5)
[2024-10-05 15:51] LABS: INR 1.2 (<1.2); Partial Thromboplastin Time 27.5 sec (22.0-30.0); Prothrombin Time 12.6 sec (10.0-12.5)
[2024-10-05] MEDS: INSULIN REGULAR 100 UNIT in SODIUM CHLORIDE 0.9% 100 ML IV SCH (16:01)
[2024-10-05 16:06] LABS: Glucose,Whole Blood 158 mg/dL (70-110)
[2024-10-05] MEDS: HEPARIN SODIUM,PORCINE 5,000 UNIT/ML 1 ML VIAL SQ SCH (16:10)
[2024-10-05 16:23] LABS: ABG Base Excess -4.5 mmol/L; ABG HCO3 20 mmol/L (21-25); ABG Oxygen Saturation 93.4 % (94-97); ABG PCO2 34 mmHg (35-45); ABG PH 7.38 (7.35-7.45); ABG PO2 67 mmHg (83-108); ABG TCO2 21 mmol/L (19-24); Allen Test Performed? Yes
[2024-10-05 16:40] LABS: Platelet Count 276 k/uL (150-450)
[2024-10-05] MEDS: ACETAMINOPHEN IV (For NPO) 1,000 MG in EMPTY BAG 1 BAG IVPB SCH (16:59)
[2024-10-05 17:20] LABS: Glucose,Whole Blood 166 mg/dL (70-110)
[2024-10-05] MEDS: fentaNYL (PF) 50 MCG/ML 2 ML AMP IVP PRN (17:28)
--- NOTE | 2024-10-05 17:44 | P.PN ---
Subjective Progress Note Date: 10/05/24 Principal diagnosis: Triple-vessel coronary artery bypass grafting using the in situ left intramammary artery to the left anterior descending artery, left radial artery from the aorta to the diagonal artery, reverse saphenous vein graft from the aorta to the posterior descending artery, postoperative day #0. This is a 64-year-old male patient who is being seen preoperatively as the patient is scheduled to undergo coronary bypass surgery on 10/05/2024. The patient presented with chest pain and an abnormal stress test and he underwent a cardiac catheterization the patient was found to have 99% stenosis involving the LAD and a diagonal branch, and dominant RCA with 60 to 70% mid stenosis and totally occluded distal RCA with collaterals from the septals toward the PDA and PLV. This finding consultation was placed to cardiothoracic surgery for revascularization recommendations. Of note he did have a transthoracic echocardiogram completed revealing reduced left ventricular systolic function with EF 45 to 50%, mild to moderate mitral regurgitation and mild tricuspid regurgitation without pulmonary hypertension, there was no pericardial effusion and the aortic root and proximal ascending aorta more normal size. The patient otherwise doing well. No specific complaints. He is known to have hypertension hyperlipidemia. No respiratory difficulties for now. History of any chest pain for now. The chest x-ray from 10/02/2024 was reviewed and showed no acute card iopulmonary process. CAT scan of the chest done on 10/01/2024 shows a 2 cm right thyroid nodule. Otherwise, the lungs showed some mild limited and linear scarring and reticulation in the right upper lobe with focal mild linear scarring in the lingula. Otherwise, no other significant abnormalities were noted. Minimal amount of plaques involving the thoracic aorta. The white cell count is at 5.8, he was 12.1 and a platelet count of 411. Normal thyroid function test. Normal UA. proBNP level was 1000. TSH is at 4.12. Good performance status. On 10/04/2024, the patient has no specific complaints and the patient is hemodynamic stable and free of any chest pain. Awaiting surgery for tomorrow. The white cell count of 5.8 with hemoglobin 12.7 and a platelet count of 388. Normal coagulation profile. Normal electrolytes. BUN is 22 with a creatinine of 1.08. LFTs are normal. The patient continues to use incentive spirometer. He is quite active. No cardiac arrhythmias have been noted. Patient was seen today on 10/05/2024, he is status post Triple-vessel coronary artery bypass grafting using the in situ left intramammary artery to the left anterior descending artery, left radial artery from the aorta to the diagonal artery, reverse saphenous vein graft from the aorta to the posterior descending artery, postoperative day #0, patient was seen in the ICU shortly after he arriv ed, patient is mostly on nitroglycerin drip, 5 mcg/min, patient is intubated and mechanically ventilated, patient is on tidal volume of 500, assist-control rate of 14, FiO2 100%, and PEEP of 5 ABG showed a pO2 of 360 pCO2 37 pH of 7.39. During my evaluation, the patient is awake but seems to be quite anxious, restless, agitated, he was complaining of pain, patient received pain medication, and shortly after we proceeded with trial of weaning with CPAP. Shortly after his weaning parameters were noted, and patient was extubated to a nasal cannula. ABG on CPAP showed a pO2 of 67 pCO2 34 pH of 7.38 and was on 40% FiO2. Cardiac output was 6.5, and his cardiac index was 3.2. Chest x-ray showe d postoperative changes, no evidence of active disease. Objective - Vital Signs Vital signs: Vital Signs Temp 97.3 F L 10/05/24 06:04 Pulse 93 10/05/24 15:30 Resp 16 10/05/24 06:04 BP 139/83 10/05/24 06:04 Pulse Ox 95 10/05/24 16:51 FiO2 40 10/05/24 15:48 Intake & Output 10/04/24 10/05/24 10/05/24 18:59 06:59 18:59 Intake Total 925 100 13.307 Output Total 950 Balance 925 100 -936.693 Weight 90.72 kg Intake: IV 100 3 Intake, IV Titration 10.307 Amount Clevidipine Butyrate 25 0.667 mg In Empty Bag 1 bag @ 1 MG/HR 2 mls/hr IV .Q24H CRISTINA Rx#:[id number] Insulin Regular 100 unit 1.475 In Sodium Chloride 0.9% 100 ml @ Titrate IV .Q0M CRISTINA Rx#:[id number] propofoL 1,000 mg In 8.165 Empty Bag 1 bag @ Titrate IV .Q0M CRISTINA Rx#: [id number] Oral 925 Output: Urine 550 Estimated Blood Loss 400 Other: Voiding Method Toilet Toilet # Voids 3 2 - Exam CONSTITUTIONAL: Revealed 64-year-old white male, intubated mechanically ventilated, awake, follows simple instructions. Head: Atraumatic, normocephalic endotracheal tube and orogastric tube are intact. RESPIRATORY: Diminished breath sound bilaterally no rhonchi no wheezes CARDIOVASCULAR: S1, S2 present. Regular rate and rhythm, sinus rhythm on telemetry. Palpable peripheral pulses bilaterally. No edema present, positive pericardial rub GASTROINTESTINAL: Soft nontender no rebound no guarding. INTEGUMENTARY: Skin is warm, no rashes NEUROLOGIC: Seems to be alert oriented x 3 no gross focal deficit MUSKULOSKELETAL: No deformities and no limitation range of motion PSYCHIATRIC: Anxious otherwise unremarkable. - Labs CBC & Chem 7: 10/05/24 14:57 10/05/24 14:57 Labs: Abnormal Lab Results - Last 24 Hours (Table) 10/04/24 10/05/24 10/05/24 Range/Units 07:18 09:02 09:33 RBC (4.30-5.90) m/uL Hgb (13.0-17.5) gm/dL Hct (39.0-53.0) % Lymphocytes # (1.0-4.8) k/uL PT (10.0-12.5) sec INR (<1.2) ABG pH 7.32 L (7.35-7.45) ABG pCO2 (35-45) mmHg ABG pO2 186 H 183 H (83-108) mmHg ABG HCO3 (21-25) mmol/L ABG O2 Saturation 98.8 H 98.6 H (94-97) % ABG Hematocrit 29 L 30 L (34.0-46.0) % ABG Potassium (3.4-4.5) mmol/L ABG Ionized Calcium (4.5-5.3) mg/dL ABG Glucose 106 H (75-99) mg/dL ABG Lactic Acid (0.5-1.6) mmol/L Hemoglobin 9.6 L 9.7 L (13.0-17.5) gm/dL Sodium (137-145) mmol/L Glucose (74-99) mg/dL POC Glucose (mg/dL) (70-110) mg/dL Calcium (8.4-10.2) mg/dL Ionized Calcium Katerin (4.5-5.3) mg/dL Alkaline Phosphatase (38-126) U/L Total Protein (6.3-8.2) g/dL Albumin (3.5-5.0) g/dL Arterial Blood Potassium (3.4-4.5) mmol/L Arterial Blood Glucose 106 H (75-99) mg/dL Crossmatch See Detail 10/05/24 10/05/24 10/05/24 Range/Units 11:45 12:15 12:16 RBC (4.30-5.90) m/uL Hgb (13.0-17.5) gm/dL Hct (39.0-53.0) % Lymphocytes # (1.0-4.8) k/uL PT (10.0-12.5) sec INR (<1.2) ABG pH (7.35-7.45) ABG pCO2 (35-45) mmHg ABG pO2 356 H 402 H 300 H (83-108) mmHg ABG HCO3 (21-25) mmol/L ABG O2 Saturation 99.2 H >99.4 H 99.0 H (94-97) % ABG Hematocrit 20 L* 22 L 21 L (34.0-46.0) % ABG Potassium 5.1 H 5.3 H (3.4-4.5) mmol/L ABG Ionized Calcium 4.2 L 4.2 L 4.3 L (4.5-5.3) mg/dL ABG Glucose 107 H 115 H 131 H (75-99) mg/dL ABG Lactic Acid (0.5-1.6) mmol/L Hemoglobin 6.6 L* 7.1 L 6.9 L* (13.0-17.5) gm/dL Sodium (137-145) mmol/L Glucose (74-99) mg/dL POC Glucose (mg/dL) (70-110) mg/dL Calcium (8.4-10.2) mg/dL Ionized Calcium Katerin (4.5-5.3) mg/dL Alkaline Phosphatase (38-126) U/L Total Protein (6.3-8.2) g/dL Albumin (3.5-5.0) g/dL Arterial Blood Potassium 5.1 H 5.3 H (3.4-4.5) mmol/L Arterial Blood Glucose 107 H 115 H 131 H (75-99) mg/dL Crossmatch 10/05/24 10/05/24 10/05/24 Range/Units 12:46 13:21 14:57 RBC 2.82 L (4.30-5.90) m/uL Hgb 8.2 L D (13.0-17.5) gm/dL Hct 25.6 L (39.0-53.0) % Lymphocytes # 0.5 L (1.0-4.8) k/uL PT (10.0-12.5) sec INR (<1.2) ABG pH 7.33 L (7.35-7.45) ABG pCO2 (35-45) mmHg ABG pO2 297 H 126 H (83-108) mmHg ABG HCO3 (21-25) mmol/L ABG O2 Saturation 99.2 H 98.3 H (94-97) % ABG Hematocrit 21 L 26 L (34.0-46.0) % ABG Potassium 5.2 H (3.4-4.5) mmol/L ABG Ionized Calcium 4.3 L 4.4 L (4.5-5.3) mg/dL ABG Glucose 130 H 116 H (75-99) mg/dL ABG Lactic Acid 2.5 H* 1.7 H (0.5-1.6) mmol/L Hemoglobin 6.8 L* 8.5 L (13.0-17.5) gm/dL Sodium (137-145) mmol/L Glucose (74-99) mg/dL POC Glucose (mg/dL) (70-110) mg/dL Calcium (8.4-10.2) mg/dL Ionized Calcium Katerin (4.5-5.3) mg/dL Alkaline Phosphatase (38-126) U/L Total Protein (6.3-8.2) g/dL Albumin (3.5-5.0) g/dL Arterial Blood Potassium 5.2 H (3.4-4.5) mmol/L Arterial Blood Glucose 130 H 116 H (75-99) mg/dL Crossmatch 10/05/24 10/05/24 10/05/24 Range/Units 14:57 14:57 15:12 RBC (4.30-5.90) m/uL Hgb (13.0-17.5) gm/dL Hct (39.0-53.0) % Lymphocytes # (1.0-4.8) k/uL PT 12.6 H (10.0-12.5) sec INR 1.2 H (<1.2) ABG pH (7.35-7.45) ABG pCO2 (35-45) mmHg ABG pO2 360 H (83-108) mmHg ABG HCO3 (21-25) mmol/L ABG O2 Saturation >100.0 H (94-97) % ABG Hematocrit (34.0-46.0) % ABG Potassium (3.4-4.5) mmol/L ABG Ionized Calcium (4.5-5.3) mg/dL ABG Glucose (75-99) mg/dL ABG Lactic Acid (0.5-1.6) mmol/L Hemoglobin 8.3 L (13.0-17.5) gm/dL Sodium 136 L (137-145) mmol/L Glucose 116 H (74-99) mg/dL POC Glucose (mg/dL) (70-110) mg/dL Calcium 7.6 L (8.4-10.2) mg/dL Ionized Calcium Katerin 4.4 L (4.5-5.3) mg/dL Alkaline Phosphatase 35 L (38-126) U/L Total Protein 4.9 L (6.3-8.2) g/dL Albumin 3.1 L (3.5-5.0) g/dL Arterial Blood Potassium (3.4-4.5) mmol/L Arterial Blood Glucose (75-99) mg/dL Crossmatch 10/05/24 10/05/24 10/05/24 Range/Units 15:55 16:15 17:19 RBC (4.30-5.90) m/uL Hgb (13.0-17.5) gm/dL Hct (39.0-53.0) % Lymphocytes # (1.0-4.8) k/uL PT (10.0-12.5) sec INR (<1.2) ABG pH (7.35-7.45) ABG pCO2 34 L (35-45) mmHg ABG pO2 67 L (83-108) mmHg ABG HCO3 20 L (21-25) mmol/L ABG O2 Saturation 93.4 L (94-97) % ABG Hematocrit (34.0-46.0) % ABG Potassium (3.4-4.5) mmol/L ABG Ionized Calcium (4.5-5.3) mg/dL ABG Glucose (75-99) mg/dL ABG Lactic Acid (0.5-1.6) mmol/L Hemoglobin 9.1 L (13.0-17.5) gm/dL Sodium (137-145) mmol/L Glucose (74-99) mg/dL POC Glucose (mg/dL) 158 H 166 H (70-110) mg/dL Calcium (8.4-10.2) mg/dL Ionized Calcium Katerin (4.5-5.3) mg/dL Alkaline Phosphatase (38-126) U/L Total Protein (6.3-8.2) g/dL Albumin (3.5-5.0) g/dL Arterial Blood Potassium (3.4-4.5) mmol/L Arterial Blood Glucose (75-99) mg/dL Crossmatch Assessment and Plan Assessment: Impression: Triple-vessel coronary artery bypass grafting using the in situ left int ramammary artery to the left anterior descending artery, left radial artery from the aorta to the diagonal artery, reverse saphenous vein graft from the aorta to the posterior descending artery, postoperative day #0 Mild LV dysfunction with ejection fraction of 45% Moderate mitral regurgitation Benign essential hypertension Dyslipidemia History of thyroid nodule with normal thyroid function test. Recommendation: Patient was seen and shortly after the patient was extubated for mechanical ventilation, Continue postoperative care including incentive spirometry, Early ambulation, Plavix aspirin statin and beta-blockers Discontinue unnecessary lines and catheters Resume home meds Will continue to follow Time with Patient: Greater than 30
[2024-10-05 18:21] LABS: Basophils % (A) 0 %; Eosinophils % (A) 0 %; Glucose,Whole Blood 163 mg/dL (70-110); HGB 8.6 gm/dL (13.0-17.5); Lymphocytes # (A) 0.4 k/uL (1.0-4.8); Lymphocytes % (A) 4 %; MCH 28.9 pg (25.0-35.0); MCHC 31.9 g/dL (31.0-37.0); MCV 90.8 fL (80.0-100.0); Mean Platelet Volume 9.3; Monocytes # (A) 0.4 k/uL (0-1.0); Monocytes % (A) 5 %; Neutrophils # (A) 7.7 k/uL (1.3-7.7); Neutrophils % (A) 90 %; Platelet Count 185 k/uL (150-450); RBC 2.97 m/uL (4.30-5.90); RDW 14.4 % (11.5-15.5); WBC 8.5 k/uL (3.8-10.6)
[2024-10-05 19:10] LABS: Glucose,Whole Blood 154 mg/dL (70-110)
[2024-10-05 20:14] LABS: Glucose,Whole Blood 150 mg/dL (70-110)
[2024-10-05 20:50] LABS: Basophils % (A) 0 %; Eosinophils % (A) 0 %; HCT 25.5 % (39.0-53.0); HGB 8.2 gm/dL (13.0-17.5); Lymphocytes # (A) 0.3 k/uL (1.0-4.8); Lymphocytes % (A) 4 %; MCV 90.6 fL (80.0-100.0); Mean Platelet Volume 9.7; Monocytes # (A) 0.3 k/uL (0-1.0); Monocytes % (A) 4 %; Neutrophils # (A) 7.1 k/uL (1.3-7.7); Neutrophils % (A) 92 %; Platelet Count 158 k/uL (150-450); RBC 2.82 m/uL (4.30-5.90); RDW 14.3 % (11.5-15.5); WBC 7.7 k/uL (3.8-10.6)
[2024-10-05 21:13] LABS: Glucose,Whole Blood 138 mg/dL (70-110)
[2024-10-05 22:03] LABS: Glucose,Whole Blood 138 mg/dL (70-110)
[2024-10-05 23:16] LABS: Glucose,Whole Blood 139 mg/dL (70-110)
[2024-10-05] MEDS: KETOROLAC 15 MG/ML 1 ML VIAL IVP SCH (23:20)
--- NOTE | 2024-10-05 23:26 | PN ---
PROGRESS NOTE A 64-year-old white male, status post CABG surgery. Nurse was asked to give him 1 dose of fentanyl due to significant pain. His sugars are not high, in the low 100s. He had extubated within 2 hours. PHYSICAL EXAMINATION: VITAL SIGNS: Stable 116/60, respiratory rate is 18. GENERAL: He is lying comfortably and gives up the thumbs up sign. CARDIOVASCULAR: S1, S2. Pain control, I gave one dose of fentanyl. Continues to have bypass surgery recovery, on multiple drugs. Prognosis is guarded. I expect fast recovery. Seems stable at this point. MMODL / IJN: [id number] /
[2024-10-06 00:19] LABS: Glucose,Whole Blood 129 mg/dL (70-110)
[2024-10-06] MEDS: ALBUMIN HUMAN 5% 250 ML in EMPTY BAG 1 BAG IVPB PRN (00:50)
[2024-10-06 01:11] LABS: Glucose,Whole Blood 128 mg/dL (70-110)
[2024-10-06 02:14] LABS: Glucose,Whole Blood 124 mg/dL (70-110)
[2024-10-06 03:09] LABS: Glucose,Whole Blood 138 mg/dL (70-110)
[2024-10-06 03:19] LABS: Basophils % (A) 0 %; Eosinophils % (A) 0 %; HCT 21.9 % (39.0-53.0); HGB 7.1 gm/dL (13.0-17.5); Lymphocytes # (A) 0.5 k/uL (1.0-4.8); Lymphocytes % (A) 8 %; MCH 29.1 pg (25.0-35.0); MCHC 32.2 g/dL (31.0-37.0); MCV 90.2 fL (80.0-100.0); Mean Platelet Volume 10.4; Monocytes # (A) 0.3 k/uL (0-1.0); Monocytes % (A) 4 %; Neutrophils # (A) 5.2 k/uL (1.3-7.7); Neutrophils % (A) 86 %; Platelet Count 138 k/uL (150-450); RBC 2.43 m/uL (4.30-5.90); RDW 14.4 % (11.5-15.5); WBC 6.1 k/uL (3.8-10.6)
[2024-10-06 03:38] LABS: Ionized Calcium 4.4 mg/dL (4.5-5.3)
[2024-10-06 03:47] LABS: ALT 23 U/L (4-49); AST 41 U/L (17-59); African American GFR (CKD) >90 (>60 ml/min/1.73 sqM); Albumin 3.1 g/dL (3.5-5.0); Alkaline Phosphatase 37 U/L (38-126); Anion Gap 6 mmol/L; Blood Urea Nitrogen 18 mg/dL (9-20); Calcium 7.6 mg/dL (8.4-10.2); Carbon Dioxide 23 mmol/L (22-30); Chloride 103 mmol/L (98-107); Glucose 123 mg/dL (74-99); Non-African American GFR(CKD) >90 (>60 ml/min/1.73 sqM); Potassium 4.1 mmol/L (3.5-5.1); Sodium 132 mmol/L (137-145); Total Bilirubin 0.9 mg/dL (0.2-1.3); Total Protein 4.8 g/dL (6.3-8.2)
[2024-10-06 04:19] LABS: Glucose,Whole Blood 136 mg/dL (70-110)
[2024-10-06 06:17] LABS: Glucose,Whole Blood 132 mg/dL (70-110)
[2024-10-06] MEDS: ASCORBIC ACID 500 MG TAB PO SCH (06:55)
[2024-10-06] MEDS: FERROUS SULFATE 325 MG TAB PO SCH (06:55)
[2024-10-06 07:08] LABS: Glucose,Whole Blood 126 mg/dL (70-110)
--- NOTE | 2024-10-06 07:17 | XR ---
EXAMINATION TYPE: XR chest 1V portable DATE OF EXAM: 10/06/2024 5:37 AM COMPARISON: Chest radiographs from 10/05/2024. CLINICAL INDICATION: Male, 64 years old with history of Post Operative Cardiac Surgery; [facility] TECHNIQUE: XR chest 1V portable Frontal view of the chest. FINDINGS: Lungs/Pleura: There is no evidence of pleural effusion, focal consolidation, or pneumothorax. Pulmonary vascularity: Unremarkable. Heart/mediastinum: Cardiomediastinal silhouette is unremarkable. Two lead cardiac conduction device o verlying the left hemithorax with lead tips projecting over the right ventricle and right atrium. Musculoskeletal: No acute osseous pathology. Other findings: None Lines/Tubes: Interval removal of the endotracheal tube. Interval removal of the enteric tube, Drainage tubes with tips projecting over the mediastinum. There is a [place]-Daquan catheter with tip projecting over the spine. Bilateral thoracotomy tubes are present without evidence of pneumothorax. IMPRESSION: Postprocedural changes of mild pulmonary edema. Removal of endotracheal tube. [facility], , 10/06/2024 7:14 AM
[2024-10-06] MEDS: IPRATROPIUM-ALBUTEROL 3 ML NEB INHALATION SCH (07:30)
[2024-10-06] MEDS: CLOPIDOGREL 75 MG TAB PO SCH (08:14)
[2024-10-06] MEDS: AMIODARONE 200 MG TAB PO SCH (08:14)
[2024-10-06] MEDS: PANTOPRAZOLE 40 MG/10 ML VIAL IVP SCH (08:14)
[2024-10-06] MEDS: ASPIRIN 325 MG TAB PO SCH (08:14)
[2024-10-06] MEDS: ATORVASTATIN 40 MG TAB PO SCH (08:15)
[2024-10-06] MEDS: methocarbamoL 500 MG TAB PO SCH (08:15)
[2024-10-06] MEDS: METOPROLOL TARTRATE 12.5 MG TAB PO SCH (08:15)
[2024-10-06 08:31] LABS: Glucose,Whole Blood 130 mg/dL (70-110)
--- NOTE | 2024-10-06 08:46 | P.PN ---
Subjective Progress Note Date: 10/06/24 Principal diagnosis: Triple-vessel coronary artery disease with unstable angina, mild left ventricular dysfunction. 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, hypertension, hyperlipidemia POD #1 triple-vessel coronary artery bypass grafting using the in situ left intramammary artery to the left anterior descending artery, left radial artery from the aorta to the diagonal artery, reverse saphenous vein graft from the aorta to the posterior descending artery, exclusion of the left atrial appendage using a 35mm AtriClip, endoscopic harvesting of the left radial artery, endoscopic harvesting of the left greater saphenous vein, graft flow measurement using the Mashed Pixelstim system, intraoperative transesophageal echocardiogram and epiaortic scanning Postoperative acute blood loss anemia and thrombocytopenia, likely from cardiopulmonary bypass pump and hemodilution The patient was seen and examined sitting up in recliner in the intensive care unit this morning in no acute distress. He was successfully extubated yesterday at 16:35. Remains in sinus rhythm, hemodynamically stable only on IV nitro for vessel spasm prophylaxis. Remains on 4 L nasal cannula with oxygen saturation in the high 90s. He does complain of expected postsurgical pain, denies shortness of breath. Only able to achieve 500 mL on his incentive spirometry. Right internal jugular [place]/Cordis, right radial arterial line, mediastinal/right/left pleural chest tubes, left radial artery and left EVH MOJGAN drains all present. No other new concerns. Objective - Vital Signs Vital signs: Vital Signs Temp 98.6 F 10/06/24 06:00 Pulse 90 10/06/24 07:42 Resp 16 10/06/24 07:00 BP 139/83 10/05/24 06:04 Pulse Ox 99 10/06/24 07:00 FiO2 50 10/05/24 16:00 Intake & Output 10/05/24 10/06/24 10/06/24 18:59 06:59 18:59 Intake Total 515.474 702.683 62.608 Output Total 2410 1395 30 Balance -1894.526 -692.317 32.608 Weight 96.6 kg Intake: IV 503 680 50 ACETAMINOPHEN IV (For NPO 100 ) 1,000 mg In Empty Bag 1 bag @ 400 mls/hr IVPB Q6HR [facility] Rx#:[id number] CO/CI 100 80 Sodium Chloride 0.9% 1, 250 600 50 000 ml @ 30 mls/hr IV . Q24H [facility] Rx#:[id number] ceFAZolin 2 gm In Sodium 50 Chloride 0.9% 50 ml @ 100 mls/hr IVPB ONCE ONE Rx# :[id number] Intake, IV Titration 12.474 22.683 12.608 Amount Clevidipine Butyrate 25 0.667 mg In Empty Bag 1 bag @ 1 MG/HR 2 mls/hr IV .Q24H [facility] Rx#:[id number] Insulin Regular 100 unit 3.642 22.683 12.608 In Sodium Chloride 0.9% 100 ml @ Titrate IV .Q0M [facility] Rx#:[id number] propofoL 1,000 mg In 8.165 Empty Bag 1 bag @ Titrate IV .Q0M [facility] Rx#: [id number] Output: Chest Tube Drainage 770 530 30 Chest Tube Left 420 340 10 Chest Tube Mediastinal 170 120 0 Chest Tube Right 180 70 20 Drainage 40 Left Calf 20 Left Wrist 20 Urine 1240 825 Estimated Blood Loss 400 Other: Voiding Method Indwelling Catheter Indwelling Catheter ABP, PAP, CO, CI - Last Documented Arterial Blood Pressure 93/53 Pulmonary Artery Pressure 26/13 Cardiac Output 7.4 Cardiac Index 3.5 - Exam CONSTITUTIONAL: Appears comfortable, cooperative, no acute distress RESPIRATORY: Lungs sounds diminished in the bases bilaterally. Respirations even, nonlabored. Currently on 4 L nasal cannula with oxygen saturation 98%. Able to achieve 500 mL on incentive spirometry. Strong cough. CARDIOVASCULAR: S1, S2 present. Regular rate and rhythm, sinus rhythm on telemetry. Sternum stable. Palpable peripheral pulses bilaterally. No edema present. No calf pain or tenderness noted. Heart hugger in place with patient demonstrating appropriate use. Antiembolism stockings, SCDs present. GASTROINTESTINAL: Abdomen soft, nontender, nondistended. Hypoactive bowel sounds present 4 quadrants. Tolerating liquids. Denies flatus GENITOURINARY: Morrow present draining clear, yellow urine. Output overnight 50-125 mL per hour INTEGUMENTARY: Skin is warm and dry with evidence of good perfusion. Anterior chest incision well approximated and covered with dry intact dressing. Left radial harvest as well as left lower extremity EVH site well approximated without redness, MOJGAN drains present with minimal drainage NEUROLOGIC: Cranial nerves II through XII intact MUSKULOSKELETAL: Able to move all extremities, strength equal bilaterally, gait normal PSYCHIATRIC: Alert and oriented to person place and time, appropriate affect, intact judgment and insight INVASIVE LINES AND TUBES: Mediastinal/left/right pleural chest tubes present and connected to wall suction, no air leaks present. Mediastinal tube with 90 mL serosanguineous drainage overnight, 300 mL since surgery. Left pleural chest tube with 280 mL serosanguineous drainage overnight, 750 mL surgery. Right pleural chest tube with 60 mL serosanguineous drainage overnight, 250 mL since surgery. Atrial epicardial pacemaker wire present, connected to generator, generator off. Right internal jugular [place]/Cordis, right radial arterial line present. Last CO/CI 7.4/3.5, PA /, CVP 8. - Allied health notes Allied health notes reviewed: nursing - Labs CBC & Chem 7: 10/06/24 03:00 10/06/24 03:00 Labs: Abnormal Lab Results - Last 24 Hours (Table) 10/04/24 10/05/24 10/05/24 Range/Units 07:18 09:02 09:33 RBC (4.30-5.90) m/uL Hgb (13.0-17.5) gm/dL Hct (39.0-53.0) % Plt Count (150-450) k/uL Lymphocytes # (1.0-4.8) k/uL PT (10.0-12.5) sec INR (<1.2) ABG pH 7.32 L (7.35-7.45) ABG pCO2 (35-45) mmHg ABG pO2 186 H 183 H (83-108) mmHg ABG HCO3 (21-25) mmol/L ABG O2 Saturation 98.8 H 98.6 H (94-97) % ABG Hematocrit 29 L 30 L (34.0-46.0) % ABG Potassium (3.4-4.5) mmol/L ABG Ionized Calcium (4.5-5.3) mg/dL ABG Glucose 106 H (75-99) mg/dL ABG Lactic Acid (0.5-1.6) mmol/L Hemoglobin 9.6 L 9.7 L (13.0-17.5) gm/dL Sodium (137-145) mmol/L Glucose (74-99) mg/dL POC Glucose (mg/dL) (70-110) mg/dL Calcium (8.4-10.2) mg/dL Ionized Calcium Katerin (4.5-5.3) mg/dL Alkaline Phosphatase (38-126) U/L Total Protein (6.3-8.2) g/dL Albumin (3.5-5.0) g/dL Arterial Blood Potassium (3.4-4.5) mmol/L Arterial Blood Glucose 106 H (75-99) mg/dL Crossmatch See Detail 10/05/24 10/05/24 10/05/24 Range/Units 11:45 12:15 12:16 RBC (4.30-5.90) m/uL Hgb (13.0-17.5) gm/dL Hct (39.0-53.0) % Plt Count (150-450) k/uL Lymphocytes # (1.0-4.8) k/uL PT (10.0-12.5) sec INR (<1.2) ABG pH (7.35-7.45) ABG pCO2 (35-45) mmHg ABG pO2 356 H 402 H 300 H (83-108) mmHg ABG HCO3 (21-25) mmol/L ABG O2 Saturation 99.2 H >99.4 H 99.0 H (94-97) % ABG Hematocrit 20 L* 22 L 21 L (34.0-46.0) % ABG Potassium 5.1 H 5.3 H (3.4-4.5) mmol/L ABG Ionized Calcium 4.2 L 4.2 L 4.3 L (4.5-5.3) mg/dL ABG Glucose 107 H 115 H 131 H (75-99) mg/dL ABG Lactic Acid (0.5-1.6) mmol/L Hemoglobin 6.6 L* 7.1 L 6.9 L* (13.0-17.5) gm/dL Sodium (137-145) mmol/L Glucose (74-99) mg/dL POC Glucose (mg/dL) (70-110) mg/dL Calcium (8.4-10.2) mg/dL Ionized Calcium Katerin (4.5-5.3) mg/dL Alkaline Phosphatase (38-126) U/L Total Protein (6.3-8.2) g/dL Albumin (3.5-5.0) g/dL Arterial Blood Potassium 5.1 H 5.3 H (3.4-4.5) mmol/L Arterial Blood Glucose 107 H 115 H 131 H (75-99) mg/dL Crossmatch 10/05/24 10/05/24 10/05/24 Range/Units 12:46 13:21 14:57 RBC 2.82 L (4.30-5.90) m/uL Hgb 8.2 L D (13.0-17.5) gm/dL Hct 25.6 L (39.0-53.0) % Plt Count (150-450) k/uL Lymphocytes # 0.5 L (1.0-4.8) k/uL PT (10.0-12.5) sec INR (<1.2) ABG pH 7.33 L (7.35-7.45) ABG pCO2 (35-45) mmHg ABG pO2 297 H 126 H (83-108) mmHg ABG HCO3 (21-25) mmol/L ABG O2 Saturation 99.2 H 98.3 H (94-97) % ABG Hematocrit 21 L 26 L (34.0-46.0) % ABG Potassium 5.2 H (3.4-4.5) mmol/L ABG Ionized Calcium 4.3 L 4.4 L (4.5-5.3) mg/dL ABG Glucose 130 H 116 H (75-99) mg/dL ABG Lactic Acid 2.5 H* 1.7 H (0.5-1.6) mmol/L Hemoglobin 6.8 L* 8.5 L (13.0-17.5) gm/dL Sodium (137-145) mmol/L Glucose (74-99) mg/dL POC Glucose (mg/dL) (70-110) mg/dL Calcium (8.4-10.2) mg/dL Ionized Calcium Katerin (4.5-5.3) mg/dL Alkaline Phosphatase (38-126) U/L Total Protein (6.3-8.2) g/dL Albumin (3.5-5.0) g/dL Arterial Blood Potassium 5.2 H (3.4-4.5) mmol/L Arterial Blood Glucose 130 H 116 H (75-99) mg/dL Crossmatch 10/05/24 10/05/24 10/05/24 Range/Units 14:57 14:57 15:12 RBC (4.30-5.90) m/uL Hgb (13.0-17.5) gm/dL Hct (39.0-53.0) % Plt Count (150-450) k/uL Lymphocytes # (1.0-4.8) k/uL PT 12.6 H (10.0-12.5) sec INR 1.2 H (<1.2) ABG pH (7.35-7.45) ABG pCO2 (35-45) mmHg ABG pO2 360 H (83-108) mmHg ABG HCO3 (21-25) mmol/L ABG O2 Saturation >100.0 H (94-97) % ABG Hematocrit (34.0-46.0) % ABG Potassium (3.4-4.5) mmol/L ABG Ionized Calcium (4.5-5.3) mg/dL ABG Glucose (75-99) mg/dL ABG Lactic Acid (0.5-1.6) mmol/L Hemoglobin 8.3 L (13.0-17.5) gm/dL Sodium 136 L (137-145) mmol/L Glucose 116 H (74-99) mg/dL POC Glucose (mg/dL) (70-110) mg/dL Calcium 7.6 L (8.4-10.2) mg/dL Ionized Calcium Katerin 4.4 L (4.5-5.3) mg/dL Alkaline Phosphatase 35 L (38-126) U/L Total Protein 4.9 L (6.3-8.2) g/dL Albumin 3.1 L (3.5-5.0) g/dL Arterial Blood Potassium (3.4-4.5) mmol/L Arterial Blood Glucose (75-99) mg/dL Crossmatch 10/05/24 10/05/24 10/05/24 Range/Units 15:55 16:15 17:19 RBC (4.30-5.90) m/uL Hgb (13.0-17.5) gm/dL Hct (39.0-53.0) % Plt Count (150-450) k/uL Lymphocytes # (1.0-4.8) k/uL PT (10.0-12.5) sec INR (<1.2) ABG pH (7.35-7.45) ABG pCO2 34 L (35-45) mmHg ABG pO2 67 L (83-108) mmHg ABG HCO3 20 L (21-25) mmol/L ABG O2 Saturation 93.4 L (94-97) % ABG Hematocrit (34.0-46.0) % ABG Potassium (3.4-4.5) mmol/L ABG Ionized Calcium (4.5-5.3) mg/dL ABG Glucose (75-99) mg/dL ABG Lactic Acid (0.5-1.6) mmol/L Hemoglobin 9.1 L (13.0-17.5) gm/dL Sodium (137-145) mmol/L Glucose (74-99) mg/dL POC Glucose (mg/dL) 158 H 166 H (70-110) mg/dL Calcium (8.4-10.2) mg/dL Ionized Calcium Katerin (4.5-5.3) mg/dL Alkaline Phosphatase (38-126) U/L Total Protein (6.3-8.2) g/dL Albumin (3.5-5.0) g/dL Arterial Blood Potassium (3.4-4.5) mmol/L Arterial Blood Glucose (75-99) mg/dL Crossmatch 10/05/24 10/05/24 10/05/24 Range/Units 18:10 18:10 19:07 RBC 2.97 L (4.30-5.90) m/uL Hgb 8.6 L (13.0-17.5) gm/dL Hct 27.0 L (39.0-53.0) % Plt Count (150-450) k/uL Lymphocytes # 0.4 L (1.0-4.8) k/uL PT (10.0-12.5) sec INR (<1.2) ABG pH (7.35-7.45) ABG pCO2 (35-45) mmHg ABG pO2 (83-108) mmHg ABG HCO3 (21-25) mmol/L ABG O2 Saturation (94-97) % ABG Hematocrit (34.0-46.0) % ABG Potassium (3.4-4.5) mmol/L ABG Ionized Calcium (4.5-5.3) mg/dL ABG Glucose (75-99) mg/dL ABG Lactic Acid (0.5-1.6) mmol/L Hemoglobin (13.0-17.5) gm/dL Sodium (137-145) mmol/L Glucose (74-99) mg/dL POC Glucose (mg/dL) 163 H 154 H (70-110) mg/dL Calcium (8.4-10.2) mg/dL Ionized Calcium Katerin (4.5-5.3) mg/dL Alkaline Phosphatase (38-126) U/L Total Protein (6.3-8.2) g/dL Albumin (3.5-5.0) g/dL Arterial Blood Potassium (3.4-4.5) mmol/L Arterial Blood Glucose (75-99) mg/dL Crossmatch 10/05/24 10/05/24 10/05/24 Range/Units 20:12 20:40 21:11 RBC 2.82 L (4.30-5.90) m/uL Hgb 8.2 L (13.0-17.5) gm/dL Hct 25.5 L (39.0-53.0) % Plt Count (150-450) k/uL Lymphocytes # 0.3 L (1.0-4.8) k/uL PT (10.0-12.5) sec INR (<1.2) ABG pH (7.35-7.45) ABG pCO2 (35-45) mmHg ABG pO2 (83-108) mmHg ABG HCO3 (21-25) mmol/L ABG O2 Saturation (94-97) % ABG Hematocrit (34.0-46.0) % ABG Potassium (3.4-4.5) mmol/L ABG Ionized Calcium (4.5-5.3) mg/dL ABG Glucose (75-99) mg/dL ABG Lactic Acid (0.5-1.6) mmol/L Hemoglobin (13.0-17.5) gm/dL Sodium (137-145) mmol/L Glucose (74-99) mg/dL POC Glucose (mg/dL) 150 H 138 H (70-110) mg/dL Calcium (8.4-10.2) mg/dL Ionized Calcium Katerin (4.5-5.3) mg/dL Alkaline Phosphatase (38-126) U/L Total Protein (6.3-8.2) g/dL Albumin (3.5-5.0) g/dL Arterial Blood Potassium (3.4-4.5) mmol/L Arterial Blood Glucose (75-99) mg/dL Crossmatch 10/05/24 10/05/24 10/06/24 Range/Units 22:02 23:15 00:18 RBC (4.30-5.90) m/uL Hgb (13.0-17.5) gm/dL Hct (39.0-53.0) % Plt Count (150-450) k/uL Lymphocytes # (1.0-4.8) k/uL PT (10.0-12.5) sec INR (<1.2) ABG pH (7.35-7.45) ABG pCO2 (35-45) mmHg ABG pO2 (83-108) mmHg ABG HCO3 (21-25) mmol/L ABG O2 Saturation (94-97) % ABG Hematocrit (34.0-46.0) % ABG Potassium (3.4-4.5) mmol/L ABG Ionized Calcium (4.5-5.3) mg/dL ABG Glucose (75-99) mg/dL ABG Lactic Acid (0.5-1.6) mmol/L Hemoglobin (13.0-17.5) gm/dL Sodium (137-145) mmol/L Glucose (74-99) mg/dL POC Glucose (mg/dL) 138 H 139 H 129 H (70-110) mg/dL Calcium (8.4-10.2) mg/dL Ionized Calcium Katerin (4.5-5.3) mg/dL Alkaline Phosphatase (38-126) U/L Total Protein (6.3-8.2) g/dL Albumin (3.5-5.0) g/dL Arterial Blood Potassium (3.4-4.5) mmol/L Arterial Blood Glucose (75-99) mg/dL Crossmatch 10/06/24 10/06/24 10/06/24 Range/Units 01:10 02:12 03:00 RBC 2.43 L (4.30-5.90) m/uL Hgb 7.1 L (13.0-17.5) gm/dL Hct 21.9 L (39.0-53.0) % Plt Count 138 L (150-450) k/uL Lymphocytes # 0.5 L (1.0-4.8) k/uL PT (10.0-12.5) sec INR (<1.2) ABG pH (7.35-7.45) ABG pCO2 (35-45) mmHg ABG pO2 (83-108) mmHg ABG HCO3 (21-25) mmol/L ABG O2 Saturation (94-97) % ABG Hematocrit (34.0-46.0) % ABG Potassium (3.4-4.5) mmol/L ABG Ionized Calcium (4.5-5.3) mg/dL ABG Glucose (75-99) mg/dL ABG Lactic Acid (0.5-1.6) mmol/L Hemoglobin (13.0-17.5) gm/dL Sodium (137-145) mmol/L Glucose (74-99) mg/dL POC Glucose (mg/dL) 128 H 124 H (70-110) mg/dL Calcium (8.4-10.2) mg/dL Ionized Calcium Katerin (4.5-5.3) mg/dL Alkaline Phosphatase (38-126) U/L Total Protein (6.3-8.2) g/dL Albumin (3.5-5.0) g/dL Arterial Blood Potassium (3.4-4.5) mmol/L Arterial Blood Glucose (75-99) mg/dL Crossmatch 10/06/24 10/06/24 10/06/24 Range/Units 03:00 03:07 04:18 RBC (4.30-5.90) m/uL Hgb (13.0-17.5) gm/dL Hct (39.0-53.0) % Plt Count (150-450) k/uL Lymphocytes # (1.0-4.8) k/uL PT (10.0-12.5) sec INR (<1.2) ABG pH (7.35-7.45) ABG pCO2 (35-45) mmHg ABG pO2 (83-108) mmHg ABG HCO3 (21-25) mmol/L ABG O2 Saturation (94-97) % ABG Hematocrit (34.0-46.0) % ABG Potassium (3.4-4.5) mmol/L ABG Ionized Calcium (4.5-5.3) mg/dL ABG Glucose (75-99) mg/dL ABG Lactic Acid (0.5-1.6) mmol/L Hemoglobin (13.0-17.5) gm/dL Sodium 132 L (137-145) mmol/L Glucose 123 H (74-99) mg/dL POC Glucose (mg/dL) 138 H 136 H (70-110) mg/dL Calcium 7.6 L (8.4-10.2) mg/dL Ionized Calcium Katerin 4.4 L (4.5-5.3) mg/dL Alkaline Phosphatase 37 L (38-126) U/L Total Protein 4.8 L (6.3-8.2) g/dL Albumin 3.1 L (3.5-5.0) g/dL Arterial Blood Potassium (3.4-4.5) mmol/L Arterial Blood Glucose (75-99) mg/dL Crossmatch 10/06/24 10/06/24 10/06/24 Range/Units 06:15 07:07 08:30 RBC (4.30-5.90) m/uL Hgb (13.0-17.5) gm/dL Hct (39.0-53.0) % Plt Count (150-450) k/uL Lymphocytes # (1.0-4.8) k/uL PT (10.0-12.5) sec INR (<1.2) ABG pH (7.35-7.45) ABG pCO2 (35-45) mmHg ABG pO2 (83-108) mmHg ABG HCO3 (21-25) mmol/L ABG O2 Saturation (94-97) % ABG Hematocrit (34.0-46.0) % ABG Potassium (3.4-4.5) mmol/L ABG Ionized Calcium (4.5-5.3) mg/dL ABG Glucose (75-99) mg/dL ABG Lactic Acid (0.5-1.6) mmol/L Hemoglobin (13.0-17.5) gm/dL Sodium (137-145) mmol/L Glucose (74-99) mg/dL POC Glucose (mg/dL) 132 H 126 H 130 H (70-110) mg/dL Calcium (8.4-10.2) mg/dL Ionized Calcium Katerin (4.5-5.3) mg/dL Alkaline Phosphatase (38-126) U/L Total Protein (6.3-8.2) g/dL Albumin (3.5-5.0) g/dL Arterial Blood Potassium (3.4-4.5) mmol/L Arterial Blood Glucose (75-99) mg/dL Crossmatch - Imaging and Cardiology Chest x-ray: report reviewed, image reviewed Assessment and Plan Assessment: Triple-vessel coronary artery disease with unstable angina, status post three- vessel CABG Mild left ventricular dysfunction, EF 45-50% Postoperative acute blood loss anemia and thrombocytopenia, likely from cardiopulmonary bypass pump and hemodilution 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 Will increase beta-ryan therapy as tolerated Will initiate amiodarone for A-fib prophylaxis, patient has had no atrial fibrillation up to this point Wean oxygen as tolerated. Encourage incentive spirometry use 10 times every hour while awake. Bronchodilators per pulmonology Will monitor daily labs and x-rays. Electrolyte replacement per protocol. Iron/vitamin C added Increase activity, ambulate as tolerated. PT/OT/cardiac rehab consulted GI/DVT prophylaxis Pain control per current medication regimen. Toradol and Robaxin added Insulin management per internal medicine. Patient is not diabetic, preoperative hemoglobin A1c 6%. Patient should remain on continuous IV insulin for 48 hours, then may transition to subcutaneous per protocol Discontinue [place], connect Cordis to continuous CVP monitoring Discontinue MOJGAN drains Continue chest tubes for another 24 hours, monitor and record output Continue Morrow catheter for another 24 hours, continue to monitor record strict accurate intake and output Daily weights More recommendations to follow as patient progresses
[2024-10-06] MEDS: CALCIUM GLUCONATE IN NACL 1 GM in SALINE 1 100ML.BAG IVPB ONE (09:13)
[2024-10-06] MEDS: ALBUMIN HUMAN 25% 50 ML in EMPTY BAG 1 BAG IVPB ONE ×2 (09:48→09:49)
[2024-10-06 09:56] LABS: Glucose,Whole Blood 142 mg/dL (70-110)
[2024-10-06] MEDS: INSULIN REGULAR 100 UNIT in SODIUM CHLORIDE 0.9% 100 ML IV SCH (10:01)
[2024-10-06 11:25] LABS: Glucose,Whole Blood 142 mg/dL (70-110)
[2024-10-06] MEDS: ACETAMINOPHEN TAB 325 MG TAB PO PRN (12:04)
[2024-10-06 12:42] LABS: Glucose,Whole Blood 109 mg/dL (70-110)
--- NOTE | 2024-10-06 13:19 | P.PN ---
Subjective Progress Note Date: 10/06/24 Principal diagnosis: Triple-vessel coronary artery bypass grafting using the in situ left intramammary artery to the left anterior descending artery, left radial artery from the aorta to the diagonal artery, reverse saphenous vein graft from the aorta to the posterior descending artery, postoperative day #1 This is a 64-year-old male patient who is being seen preoperatively as the patient is scheduled to undergo coronary bypass surgery on 10/05/2024. The patient presented with chest pain and an abnormal stress test and he underwent a cardiac catheterization the patient was found to have 99% stenosis involving the LAD and a diagonal branch, and dominant RCA with 60 to 70% mid stenosis and totally occluded distal RCA with collaterals from the septals toward the PDA and PLV. This finding consultation was placed to cardiothoracic surgery for revascularization recommendations. Of note he did have a transthoracic echocardiogram completed revealing reduced left ventricular systolic function with EF 45 to 50%, mild to moderate mitral regurgitation and mild tricuspid r egurgitation without pulmonary hypertension, there was no pericardial effusion and the aortic root and proximal ascending aorta more normal size. The patient otherwise doing well. No specific complaints. He is known to have hypertension hyperlipidemia. No respiratory difficulties for now. History of any chest pain for now. The chest x-ray from 10/02/2024 was reviewed and showed no acute cardi opulmonary process. CAT scan of the chest done on 10/01/2024 shows a 2 cm right thyroid nodule. Otherwise, the lungs showed some mild limited and linear scarring and reticulation in the right upper lobe with focal mild linear scarring in the lingula. Otherwise, no other significant abnormalities were noted. Minimal amount of plaques involving the thoracic aorta. The white cell count is at 5.8, he was 12.1 and a platelet count of 411. Normal thyroid function test. Normal UA. proBNP level was 1000. TSH is at 4.12. Good performance status. On 10/04/2024, the patient has no specific complaints and the patient is hemodynamic stable and free of any chest pain. Awaiting surgery for tomorrow. The white cell count of 5.8 with hemoglobin 12.7 and a platelet count of 388. Normal coagulation profile. Normal electrolytes. BUN is 22 with a creatinine of 1.08. LFTs are normal. The patient continues to use incentive spirometer. He is quite active. No cardiac arrhythmias have been noted. Patient was seen today on 10/05/2024, he is status post Triple-vessel coronary artery bypass grafting using the in situ left intramammary artery to the left anterior descending artery, left radial artery from the aorta to the diagonal artery, reverse saphenous vein graft from the aorta to the posterior descending artery, postoperative day #0, patient was seen in the ICU shortly after he arrived, patient is mostly on nitroglycerin drip, 5 mcg/min, patient is intubated and mechanically ventilated, patient is on tidal volume of 500, assist-control rate of 14, FiO2 100%, and PEEP of 5 ABG showed a pO2 of 360 pCO2 37 pH of 7.39. During my evaluation, the patient is awake but seems to be quite anxious, restless, agitated, he was complaining of pain, patient received pain medication, and shortly after we proceeded with trial of weaning with CPAP. Shortly after his weaning parameters were noted, and patient was extubated to a nasal cannula. ABG on CPAP showed a pO2 of 67 pCO2 34 pH of 7.38 and was on 40% FiO2. Cardiac output was 6.5, and his cardiac index was 3.2. Chest x-ray showed postoperative changes, no evidence of active disease. Patient was seen today on 10/06/2024, he is now postoperative day #1. Patient remains in the ICU, he was extubated at 16: 30 5 PM yesterday, he is in sinus rhythm, hemodynamically stable, not requiring any pressors, he is receiving the nitro for vessel spasm prophylaxis. He is on 4 L nasal cannula, does not seem to be in distress. Not achieving much on his incentive spirometry, no more than 500 cc. Chest x-ray is showing mostly bibasilar atelectasis and postoperative changes. Continues to have his right internal jugular [place], he has mediastinal right and left pleural chest tubes in place, and no leaks noted. WBC count is 6.1 hemoglobin is 7.1, basic metabolic profile is normal renal profile showed a BUN of 18 creatinine 0.81 Objective - Vital Signs Vital signs: Vital Signs Temp 98.8 F 10/06/24 08:00 Pulse 92 10/06/24 11:14 Resp 20 10/06/24 11:00 BP 139/83 10/05/24 06:04 Pulse Ox 99 10/06/24 11:00 FiO2 50 10/05/24 16:00 Intake & Output 10/05/24 10/06/24 10/06/24 18:59 06:59 18:59 Intake Total 515.474 702.683 561.238 Output Total 2410 1395 225 Balance -1894.526 -692.317 336.238 Weight 96.6 kg Intake: IV 503 680 190 ACETAMINOPHEN IV (For NPO 100 ) 1,000 mg In Empty Bag 1 bag @ 400 mls/hr IVPB Q6HR [facility] Rx#:[id number] CO/CI 100 80 Sodium Chloride 0.9% 1, 250 600 140 000 ml @ 30 mls/hr IV . Q24H [facility] Rx#:[id number] ceFAZolin 2 gm In Sodium 50 50 Chloride 0.9% 50 ml @ 100 mls/hr IVPB ONCE ONE Rx# :[id number] Intake, IV Titration 12.474 22.683 131.238 Amount Calcium Gluconate in NaCl 100 1 gm In Saline 1 100ml. bag @ 100 mls/hr IVPB ONCE ONE Rx#:[id number] Clevidipine Butyrate 25 0.667 mg In Empty Bag 1 bag @ 1 MG/HR 2 mls/hr IV .Q24H [facility] Rx#:[id number] Insulin Regular 100 unit 15.13 In Sodium Chloride 0.9% 100 ml @ Per Protocol IV .Q0M [facility] Rx#:[id number] Insulin Regular 100 unit 3.642 22.683 16.108 In Sodium Chloride 0.9% 100 ml @ Titrate IV .Q0M [facility] Rx#:[id number] propofoL 1,000 mg In 8.165 Empty Bag 1 bag @ Titrate IV .Q0M [facility] Rx#: [id number] Oral 240 Output: Chest Tube Drainage 770 530 100 Chest Tube Left 420 340 10 Chest Tube Mediastinal 170 120 0 Chest Tube Right 180 70 90 Drainage 40 0 Left Calf 20 0 Left Wrist 20 0 Urine 1240 825 125 Estimated Blood Loss 400 Other: Voiding Method Indwelling Catheter Indwelling Catheter Indwelling Catheter ABP, PAP, CO, CI - Last Documented Arterial Blood Pressure 103/52 Pulmonary Artery Pressure 26/13 Cardiac Output 7.4 Cardiac Index 3.5 - Exam CONSTITUTIONAL: Revealed 64-year-old white male, on 4 L nasal cannula, not in distress. Head: Atraumatic, normocephalic RESPIRATORY: Diminished breath sound bilaterally no rhonchi no wheezes, chest tubes and mediastinal tube noted. CARDIOVASCULAR: S1, S2 present. Regular rate and rhythm, sinus rhythm on telemetry. Palpable peripheral pulses bilaterally. No edema present, positive pericardial rub GASTROINTESTINAL: Soft nontender no rebound no guarding. INTEGUMENTARY: Skin is warm, no rashes NEUROLOGIC: Alert and oriented x 3 no gross focal deficit MUSKULOSKELETAL: No deformities and no limitation range of motion PSYCHIATRIC: Normal mood affect and no mental status examination - Labs CBC & Chem 7: 10/06/24 03:00 10/06/24 03:00 Labs: Abnormal Lab Results - Last 24 Hours (Table) 10/04/24 10/05/24 10/05/24 Range/Units 07:18 09:02 09:33 RBC (4.30-5.90) m/uL Hgb (13.0-17.5) gm/dL Hct (39.0-53.0) % Plt Count (150-450) k/uL Lymphocytes # (1.0-4.8) k/uL PT (10.0-12.5) sec INR (<1.2) ABG pH 7.32 L (7.35-7.45) ABG pCO2 (35-45) mmHg ABG pO2 186 H 183 H (83-108) mmHg ABG HCO3 (21-25) mmol/L ABG O2 Saturation 98.8 H 98.6 H (94-97) % ABG Hematocrit 29 L 30 L (34.0-46.0) % ABG Potassium (3.4-4.5) mmol/L ABG Ionized Calcium (4.5-5.3) mg/dL ABG Glucose 106 H (75-99) mg/dL ABG Lactic Acid (0.5-1.6) mmol/L Hemoglobin 9.6 L 9.7 L (13.0-17.5) gm/dL Sodium (137-145) mmol/L Glucose (74-99) mg/dL POC Glucose (mg/dL) (70-110) mg/dL Calcium (8.4-10.2) mg/dL Ionized Calcium Katerin (4.5-5.3) mg/dL Alkaline Phosphatase (38-126) U/L Total Protein (6.3-8.2) g/dL Albumin (3.5-5.0) g/dL Arterial Blood Potassium (3.4-4.5) mmol/L Arterial Blood Glucose 106 H (75-99) mg/dL Crossmatch See Detail 10/05/24 10/05/24 10/05/24 Range/Units 11:45 12:15 12:16 RBC (4.30-5.90) m/uL Hgb (13.0-17.5) gm/dL Hct (39.0-53.0) % Plt Count (150-450) k/uL Lymphocytes # (1.0-4.8) k/uL PT (10.0-12.5) sec INR (<1.2) ABG pH (7.35-7.45) ABG pCO2 (35-45) mmHg ABG pO2 356 H 402 H 300 H (83-108) mmHg ABG HCO3 (21-25) mmol/L ABG O2 Saturation 99.2 H >99.4 H 99.0 H (94-97) % ABG Hematocrit 20 L* 22 L 21 L (34.0-46.0) % ABG Potassium 5.1 H 5.3 H (3.4-4.5) mmol/L ABG Ionized Calcium 4.2 L 4.2 L 4.3 L (4.5-5.3) mg/dL ABG Glucose 107 H 115 H 131 H (75-99) mg/dL ABG Lactic Acid (0.5-1.6) mmol/L Hemoglobin 6.6 L* 7.1 L 6.9 L* (13.0-17.5) gm/dL Sodium (137-145) mmol/L Glucose (74-99) mg/dL POC Glucose (mg/dL) (70-110) mg/dL Calcium (8.4-10.2) mg/dL Ionized Calcium Katerin (4.5-5.3) mg/dL Alkaline Phosphatase (38-126) U/L Total Protein (6.3-8.2) g/dL Albumin (3.5-5.0) g/dL Arterial Blood Potassium 5.1 H 5.3 H (3.4-4.5) mmol/L Arterial Blood Glucose 107 H 115 H 131 H (75-99) mg/dL Crossmatch 10/05/24 10/05/24 10/05/24 Range/Units 12:46 13:21 14:57 RBC 2.82 L (4.30-5.90) m/uL Hgb 8.2 L D (13.0-17.5) gm/dL Hct 25.6 L (39.0-53.0) % Plt Count (150-450) k/uL Lymphocytes # 0.5 L (1.0-4.8) k/uL PT (10.0-12.5) sec INR (<1.2) ABG pH 7.33 L (7.35-7.45) ABG pCO2 (35-45) mmHg ABG pO2 297 H 126 H (83-108) mmHg ABG HCO3 (21-25) mmol/L ABG O2 Saturation 99.2 H 98.3 H (94-97) % ABG Hematocrit 21 L 26 L (34.0-46.0) % ABG Potassium 5.2 H (3.4-4.5) mmol/L ABG Ionized Calcium 4.3 L 4.4 L (4.5-5.3) mg/dL ABG Glucose 130 H 116 H (75-99) mg/dL ABG Lactic Acid 2.5 H* 1.7 H (0.5-1.6) mmol/L Hemoglobin 6.8 L* 8.5 L (13.0-17.5) gm/dL Sodium (137-145) mmol/L Glucose (74-99) mg/dL POC Glucose (mg/dL) (70-110) mg/dL Calcium (8.4-10.2) mg/dL Ionized Calcium Katerin (4.5-5.3) mg/dL Alkaline Phosphatase (38-126) U/L Total Protein (6.3-8.2) g/dL Albumin (3.5-5.0) g/dL Arterial Blood Potassium 5.2 H (3.4-4.5) mmol/L Arterial Blood Glucose 130 H 116 H (75-99) mg/dL Crossmatch 10/05/24 10/05/24 10/05/24 Range/Units 14:57 14:57 15:12 RBC (4.30-5.90) m/uL Hgb (13.0-17.5) gm/dL Hct (39.0-53.0) % Plt Count (150-450) k/uL Lymphocytes # (1.0-4.8) k/uL PT 12.6 H (10.0-12.5) sec INR 1.2 H (<1.2) ABG pH (7.35-7.45) ABG pCO2 (35-45) mmHg ABG pO2 360 H (83-108) mmHg ABG HCO3 (21-25) mmol/L ABG O2 Saturation >100.0 H (94-97) % ABG Hematocrit (34.0-46.0) % ABG Potassium (3.4-4.5) mmol/L ABG Ionized Calcium (4.5-5.3) mg/dL ABG Glucose (75-99) mg/dL ABG Lactic Acid (0.5-1.6) mmol/L Hemoglobin 8.3 L (13.0-17.5) gm/dL Sodium 136 L (137-145) mmol/L Glucose 116 H (74-99) mg/dL POC Glucose (mg/dL) (70-110) mg/dL Calcium 7.6 L (8.4-10.2) mg/dL Ionized Calcium Katerin 4.4 L (4.5-5.3) mg/dL Alkaline Phosphatase 35 L (38-126) U/L Total Protein 4.9 L (6.3-8.2) g/dL Albumin 3.1 L (3.5-5.0) g/dL Arterial Blood Potassium (3.4-4.5) mmol/L Arterial Blood Glucose (75-99) mg/dL Crossmatch 10/05/24 10/05/24 10/05/24 Range/Units 15:55 16:15 17:19 RBC (4.30-5.90) m/uL Hgb (13.0-17.5) gm/dL Hct (39.0-53.0) % Plt Count (150-450) k/uL Lymphocytes # (1.0-4.8) k/uL PT (10.0-12.5) sec INR (<1.2) ABG pH (7.35-7.45) ABG pCO2 34 L (35-45) mmHg ABG pO2 67 L (83-108) mmHg ABG HCO3 20 L (21-25) mmol/L ABG O2 Saturation 93.4 L (94-97) % ABG Hematocrit (34.0-46.0) % ABG Potassium (3.4-4.5) mmol/L ABG Ionized Calcium (4.5-5.3) mg/dL ABG Glucose (75-99) mg/dL ABG Lactic Acid (0.5-1.6) mmol/L Hemoglobin 9.1 L (13.0-17.5) gm/dL Sodium (137-145) mmol/L Glucose (74-99) mg/dL POC Glucose (mg/dL) 158 H 166 H (70-110) mg/dL Calcium (8.4-10.2) mg/dL Ionized Calcium Kater[place] (4.5-5.3) mg/dL Alkaline Phosphatase (38-126) U/L Total Protein (6.3-8.2) g/dL Albumin (3.5-5.0) g/dL Arterial Blood Potassium (3.4-4.5) mmol/L Arterial Blood Glucose (75-99) mg/dL Crossmatch 10/05/24 10/05/24 10/05/24 Range/Units 18:10 18:10 19:07 RBC 2.97 L (4.30-5.90) m/uL Hgb 8.6 L (13.0-17.5) gm/dL Hct 27.0 L (39.0-53.0) % Plt Count (150-450) k/uL Lymphocytes # 0.4 L (1.0-4.8) k/uL PT (10.0-12.5) sec INR (<1.2) ABG pH (7.35-7.45) ABG pCO2 (35-45) mmHg ABG pO2 (83-108) mmHg ABG HCO3 (21-25) mmol/L ABG O2 Saturation (94-97) % ABG Hematocrit (34.0-46.0) % ABG Potassium (3.4-4.5) mmol/L ABG Ionized Calcium (4.5-5.3) mg/dL ABG Glucose (75-99) mg/dL ABG Lactic Acid (0.5-1.6) mmol/L Hemoglobin (13.0-17.5) gm/dL Sodium (137-145) mmol/L Glucose (74-99) mg/dL POC Glucose (mg/dL) 163 H 154 H (70-110) mg/dL Calcium (8.4-10.2) mg/dL Ionized Calcium Kater[place] (4.5-5.3) mg/dL Alkaline Phosphatase (38-126) U/L Total Protein (6.3-8.2) g/dL Albumin (3.5-5.0) g/dL Arterial Blood Potassium (3.4-4.5) mmol/L Arterial Blood Glucose (75-99) mg/dL Crossmatch 10/05/24 10/05/24 10/05/24 Range/Units 20:12 20:40 21:11 RBC 2.82 L (4.30-5.90) m/uL Hgb 8.2 L (13.0-17.5) gm/dL Hct 25.5 L (39.0-53.0) % Plt Count (150-450) k/uL Lymphocytes # 0.3 L (1.0-4.8) k/uL PT (10.0-12.5) sec INR (<1.2) ABG pH (7.35-7.45) ABG pCO2 (35-45) mmHg ABG pO2 (83-108) mmHg ABG HCO3 (21-25) mmol/L ABG O2 Saturation (94-97) % ABG Hematocrit (34.0-46.0) % ABG Potassium (3.4-4.5) mmol/L ABG Ionized Calcium (4.5-5.3) mg/dL ABG Glucose (75-99) mg/dL ABG Lactic Acid (0.5-1.6) mmol/L Hemoglobin (13.0-17.5) gm/dL Sodium (137-145) mmol/L Glucose (74-99) mg/dL POC Glucose (mg/dL) 150 H 138 H (70-110) mg/dL Calcium (8.4-10.2) mg/dL Ionized Calcium [place]ater[place] (4.5-5.3) mg/dL Alkaline Phosphatase (38-126) U/L Total Protein (6.3-8.2) g/dL Albumin (3.5-5.0) g/dL Arterial Blood Potassium (3.4-4.5) mmol/L Arterial Blood Glucose (75-99) mg/dL Crossmatch 10/05/24 10/05/24 10/06/24 Range/Units 22:02 23:15 00:18 RBC (4.30-5.90) m/uL Hgb (13.0-17.5) gm/dL Hct (39.0-53.0) % Plt Count (150-450) k/uL Lymphocytes # (1.0-4.8) k/uL PT (10.0-12.5) sec INR (<1.2) ABG pH (7.35-7.45) ABG pCO2 (35-45) mmHg ABG pO2 (83-108) mmHg ABG HCO3 (21-25) mmol/L ABG O2 Saturation (94-97) % ABG Hematocrit (34.0-46.0) % ABG Potassium (3.4-4.5) mmol/L ABG Ionized Calcium (4.5-5.3) mg/dL ABG Glucose (75-99) mg/dL ABG Lactic Acid (0.5-1.6) mmol/L Hemoglobin (13.0-17.5) gm/dL Sodium (137-145) mmol/L Glucose (74-99) mg/dL POC Glucose (mg/dL) 138 H 139 H 129 H (70-110) mg/dL Calcium (8.4-10.2) mg/dL Ionized Calcium Katerin (4.5-5.3) mg/dL Alkaline Phosphatase (38-126) U/L Total Protein (6.3-8.2) g/dL Albumin (3.5-5.0) g/dL Arterial Blood Potassium (3.4-4.5) mmol/L Arterial Blood Glucose (75-99) mg/dL Crossmatch 10/06/24 10/06/24 10/06/24 Range/Units 01:10 02:12 03:00 RBC 2.43 L (4.30-5.90) m/uL Hgb 7.1 L (13.0-17.5) gm/dL Hct 21.9 L (39.0-53.0) % Plt Count 138 L (150-450) k/uL Lymphocytes # 0.5 L (1.0-4.8) k/uL PT (10.0-12.5) sec INR (<1.2) ABG pH (7.35-7.45) ABG pCO2 (35-45) mmHg ABG pO2 (83-108) mmHg ABG HCO3 (21-25) mmol/L ABG O2 Saturation (94-97) % ABG Hematocrit (34.0-46.0) % ABG Potassium (3.4-4.5) mmol/L ABG Ionized Calcium (4.5-5.3) mg/dL ABG Glucose (75-99) mg/dL ABG Lactic Acid (0.5-1.6) mmol/L Hemoglobin (13.0-17.5) gm/dL Sodium (137-145) mmol/L Glucose (74-99) mg/dL POC Glucose (mg/dL) 128 H 124 H (70-110) mg/dL Calcium (8.4-10.2) mg/dL Ionized Calcium Katerin (4.5-5.3) mg/dL Alkaline Phosphatase (38-126) U/L Total Protein (6.3-8.2) g/dL Albumin (3.5-5.0) g/dL Arterial Blood Potassium (3.4-4.5) mmol/L Arterial Blood Glucose (75-99) mg/dL Crossmatch 10/06/24 10/06/24 10/06/24 Range/Units 03:00 03:07 04:18 RBC (4.30-5.90) m/uL Hgb (13.0-17.5) gm/dL Hct (39.0-53.0) % Plt Count (150-450) k/uL Lymphocytes # (1.0-4.8) k/uL PT (10.0-12.5) sec INR (<1.2) ABG pH (7.35-7.45) ABG pCO2 (35-45) mmHg ABG pO2 (83-108) mmHg ABG HCO3 (21-25) mmol/L ABG O2 Saturation (94-97) % ABG Hematocrit (34.0-46.0) % ABG Potassium (3.4-4.5) mmol/L ABG Ionized Calcium (4.5-5.3) mg/dL ABG Glucose (75-99) mg/dL ABG Lactic Acid (0.5-1.6) mmol/L Hemoglobin (13.0-17.5) gm/dL Sodium 132 L (137-145) mmol/L Glucose 123 H (74-99) mg/dL POC Glucose (mg/dL) 138 H 136 H (70-110) mg/dL Calcium 7.6 L (8.4-10.2) mg/dL Ionized Calcium Katerin 4.4 L (4.5-5.3) mg/dL Alkaline Phosphatase 37 L (38-126) U/L Total Protein 4.8 L (6.3-8.2) g/dL Albumin 3.1 L (3.5-5.0) g/dL Arterial Blood Potassium (3.4-4.5) mmol/L Arterial Blood Glucose (75-99) mg/dL Crossmatch 10/06/24 10/06/24 10/06/24 Range/Units 06:15 07:07 08:30 RBC (4.30-5.90) m/uL Hgb (13.0-17.5) gm/dL Hct (39.0-53.0) % Plt Count (150-450) k/uL Lymphocytes # (1.0-4.8) k/uL PT (10.0-12.5) sec INR (<1.2) ABG pH (7.35-7.45) ABG pCO2 (35-45) mmHg ABG pO2 (83-108) mmHg ABG HCO3 (21-25) mmol/L ABG O2 Saturation (94-97) % ABG Hematocrit (34.0-46.0) % ABG Potassium (3.4-4.5) mmol/L ABG Ionized Calcium (4.5-5.3) mg/dL ABG Glucose (75-99) mg/dL ABG Lactic Acid (0.5-1.6) mmol/L Hemoglobin (13.0-17.5) gm/dL Sodium (137-145) mmol/L Glucose (74-99) mg/dL POC Glucose (mg/dL) 132 H 126 H 130 H (70-110) mg/dL Calcium (8.4-10.2) mg/dL Ionized Calcium Katerin (4.5-5.3) mg/dL Alkaline Phosphatase (38-126) U/L Total Protein (6.3-8.2) g/dL Albumin (3.5-5.0) g/dL Arterial Blood Potassium (3.4-4.5) mmol/L Arterial Blood Glucose (75-99) mg/dL Crossmatch 10/06/24 10/06/24 Range/Units 09:53 11:23 RBC (4.30-5.90) m/uL Hgb (13.0-17.5) gm/dL Hct (39.0-53.0) % Plt Count (150-450) k/uL Lymphocytes # (1.0-4.8) k/uL PT (10.0-12.5) sec INR (<1.2) ABG pH (7.35-7.45) ABG pCO2 (35-45) mmHg ABG pO2 (83-108) mmHg ABG HCO3 (21-25) mmol/L ABG O2 Saturation (94-97) % ABG Hematocrit (34.0-46.0) % ABG Potassium (3.4-4.5) mmol/L ABG Ionized Calcium (4.5-5.3) mg/dL ABG Glucose (75-99) mg/dL ABG Lactic Acid (0.5-1.6) mmol/L Hemoglobin (13.0-17.5) gm/dL Sodium (137-145) mmol/L Glucose (74-99) mg/dL POC Glucose (mg/dL) 142 H 142 H (70-110) mg/dL Calcium (8.4-10.2) mg/dL Ionized Calcium Katerin (4.5-5.3) mg/dL Alkaline Phosphatase (38-126) U/L Total Protein (6.3-8.2) g/dL Albumin (3.5-5.0) g/dL Arterial Blood Potassium (3.4-4.5) mmol/L Arterial Blood Glucose (75-99) mg/dL Crossmatch Assessment and Plan Assessment: Impression: Triple-vessel coronary artery bypass grafting using the in situ left intramammary artery to the left anterior descending artery, left radial artery from the aorta to the diagonal artery, reverse saphenous vein graft from the aorta to the posterior descending artery, postoperative day #1 Mild LV dysfunction with ejection fraction of 45% Moderate mitral regurgitation Benign essential hypertension Dyslipidemia History of thyroid nodule with normal thyroid function test. Postoperative atelectasis, expected Recommendation: Continue medical therapy with aspirin statin Plavix beta- blockers Continue amiodarone for A-fib prophylaxis Continue oxygen and titrate accordingly Must be more active with incentive spirometry Continue GI and DVT prophylaxis Continue ambulation in the ICU Continue Toradol and Robaxin for pain control Continue insulin for his diabetes Discontinue unnecessary lines and tubes Daily x-rays of the chest Monitor I's and O's Will continue to follow Time with Patient: Less than 30
[2024-10-06 14:04] LABS: Glucose,Whole Blood 201 mg/dL (70-110)
--- NOTE | 2024-10-06 14:21 | P.PN ---
Subjective Progress Note Date: 10/06/24 The patient is a 64-year-old male who was initially admitted for an outpatient stress test, when he had developed acute onset of chest discomfort. He states he had been having episodes of palpitations and discomfort on and off for several months prior. He underwent coronary angiogram where he is found to have triple-vessel disease and therefore underwent triple-vessel coronary bypass yesterday. Patient was successfully weaned from ventilator and now is up resting in the recliner chair. He states he does have some discomfort with deep breathing, but otherwise feels relatively well. GENERAL: Well-appearing, well-nourished and in no acute distress. NECK: Supple without JVD or thyromegaly. LUNGS: Breath sounds clear to auscultation bilaterally. Respiration equal and unlabored. No wheezes, rales or rhonchi. HEART: Regular rate and rhythm without murmurs, rubs or gallops. S1 and S2 heard. Heart hugger in place EXTREMITIES: Normal range of motion, no edema. No clubbing or cyanosis. Peripheral pulses intact and strong. 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 Objective - Vital Signs Vital signs: Vital Signs Temp 98.7 F 10/06/24 12:00 Pulse 97 10/06/24 13:00 Resp 20 10/06/24 13:00 BP 139/83 10/05/24 06:04 Pulse Ox 96 10/06/24 13:00 FiO2 50 10/05/24 16:00 Intake & Output 10/05/24 10/06/24 10/06/24 18:59 06:59 18:59 Intake Total 515.474 702.683 741.238 Output Total 2410 1395 360 Balance -1894.526 -692.317 381.238 Weight 96.6 kg Intake: IV 503 680 250 ACETAMINOPHEN IV (For NPO 100 ) 1,000 mg In Empty Bag 1 bag @ 400 mls/hr IVPB Q6HR [facility] Rx#:[id number] CO/CI 100 80 Sodium Chloride 0.9% 1, 250 600 200 000 ml @ 30 mls/hr IV . Q24H [facility] Rx#:[id number] ceFAZolin 2 gm In Sodium 50 50 Chloride 0.9% 50 ml @ 100 mls/hr IVPB ONCE ONE Rx# :[id number] Intake, IV Titration 12.474 22.683 131.238 Amount Calcium Gluconate in NaCl 100 1 gm In Saline 1 100ml. bag @ 100 mls/hr IVPB ONCE ONE Rx#:[id number] Clevidipine Butyrate 25 0.667 mg In Empty Bag 1 bag @ 1 MG/HR 2 mls/hr IV .Q24H [facility] Rx#:[id number] Insulin Regular 100 unit 15.13 In Sodium Chloride 0.9% 100 ml @ Per Protocol IV .Q0M [facility] Rx#:[id number] Insulin Regular 100 unit 3.642 22.683 16.108 In Sodium Chloride 0.9% 100 ml @ Titrate IV .Q0M [facility] Rx#:[id number] propofoL 1,000 mg In 8.165 Empty Bag 1 bag @ Titrate IV .Q0M [facility] Rx#: [id number] Oral 360 Output: Chest Tube Drainage 770 530 140 Chest Tube Left 420 340 20 Chest Tube Mediastinal 170 120 30 Chest Tube Right 180 70 90 Drainage 40 20 Left Calf 20 10 Left Wrist 20 10 Urine 1240 825 200 Estimated Blood Loss 400 Other: Voiding Method Indwelling Catheter Indwelling Catheter Indwelling Catheter ABP, PAP, CO, CI - Last Documented Arterial Blood Pressure 109/53 Pulmonary Artery Pressure 26/13 Cardiac Output 7.4 Cardiac Index 3.5 - Labs CBC & Chem 7: 10/06/24 03:00 10/06/24 03:00 Labs: Abnormal Lab Results - Last 24 Hours (Table) 10/04/24 10/05/24 10/05/24 Range/Units 07:18 14:57 14:57 RBC 2.82 L (4.30-5.90) m/uL Hgb 8.2 L D (13.0-17.5) gm/dL Hct 25.6 L (39.0-53.0) % Plt Count (150-450) k/uL Lymphocytes # 0.5 L (1.0-4.8) k/uL PT 12.6 H (10.0-12.5) sec INR 1.2 H (<1.2) ABG pCO2 (35-45) mmHg ABG pO2 (83-108) mmHg ABG HCO3 (21-25) mmol/L ABG O2 Saturation (94-97) % Hemoglobin (13.0-17.5) gm/dL Sodium (137-145) mmol/L Glucose (74-99) mg/dL POC Glucose (mg/dL) (70-110) mg/dL Calcium (8.4-10.2) mg/dL Ionized Calcium Katerin (4.5-5.3) mg/dL Alkaline Phosphatase (38-126) U/L Total Protein (6.3-8.2) g/dL Albumin (3.5-5.0) g/dL Crossmatch See Detail 10/05/24 10/05/24 10/05/24 Range/Units 14:57 15:12 15:55 RBC (4.30-5.90) m/uL Hgb (13.0-17.5) gm/dL Hct (39.0-53.0) % Plt Count (150-450) k/uL Lymphocytes # (1.0-4.8) k/uL PT (10.0-12.5) sec INR (<1.2) ABG pCO2 (35-45) mmHg ABG pO2 360 H (83-108) mmHg ABG HCO3 (21-25) mmol/L ABG O2 Saturation >100.0 H (94-97) % Hemoglobin 8.3 L (13.0-17.5) gm/dL Sodium 136 L (137-145) mmol/L Glucose 116 H (74-99) mg/dL POC Glucose (mg/dL) 158 H (70-110) mg/dL Calcium 7.6 L (8.4-10.2) mg/dL Ionized Calcium Katerin 4.4 L (4.5-5.3) mg/dL Alkaline Phosphatase 35 L (38-126) U/L Total Protein 4.9 L (6.3-8.2) g/dL Albumin 3.1 L (3.5-5.0) g/dL Crossmatch 10/05/24 10/05/24 10/05/24 Range/Units 16:15 17:19 18:10 RBC 2.97 L (4.30-5.90) m/uL Hgb 8.6 L (13.0-17.5) gm/dL Hct 27.0 L (39.0-53.0) % Plt Count (150-450) k/uL Lymphocytes # 0.4 L (1.0-4.8) k/uL PT (10.0-12.5) sec INR (<1.2) ABG pCO2 34 L (35-45) mmHg ABG pO2 67 L (83-108) mmHg ABG HCO3 20 L (21-25) mmol/L ABG O2 Saturation 93.4 L (94-97) % Hemoglobin 9.1 L (13.0-17.5) gm/dL Sodium (137-145) mmol/L Glucose (74-99) mg/dL POC Glucose (mg/dL) 166 H (70-110) mg/dL Calcium (8.4-10.2) mg/dL Ionized Calcium Katerin (4.5-5.3) mg/dL Alkaline Phosphatase (38-126) U/L Total Protein (6.3-8.2) g/dL Albumin (3.5-5.0) g/dL Crossmatch 10/05/24 10/05/24 10/05/24 Range/Units 18:10 19:07 20:12 RBC (4.30-5.90) m/uL Hgb (13.0-17.5) gm/dL Hct (39.0-53.0) % Plt Count (150-450) k/uL Lymphocytes # (1.0-4.8) k/uL PT (10.0-12.5) sec INR (<1.2) ABG pCO2 (35-45) mmHg ABG pO2 (83-108) mmHg ABG HCO3 (21-25) mmol/L ABG O2 Saturation (94-97) % Hemoglobin (13.0-17.5) gm/dL Sodium (137-145) mmol/L Glucose (74-99) mg/dL POC Glucose (mg/dL) 163 H 154 H 150 H (70-110) mg/dL Calcium (8.4-10.2) mg/dL Ionized Calcium Katerin (4.5-5.3) mg/dL Alkaline Phosphatase (38-126) U/L Total Protein (6.3-8.2) g/dL Albumin (3.5-5.0) g/dL Crossmatch 10/05/24 10/05/24 10/05/24 Range/Units 20:40 21:11 22:02 RBC 2.82 L (4.30-5.90) m/uL Hgb 8.2 L (13.0-17.5) gm/dL Hct 25.5 L (39.0-53.0) % Plt Count (150-450) k/uL Lymphocytes # 0.3 L (1.0-4.8) k/uL PT (10.0-12.5) sec INR (<1.2) ABG pCO2 (35-45) mmHg ABG pO2 (83-108) mmHg ABG HCO3 (21-25) mmol/L ABG O2 Saturation (94-97) % Hemoglobin (13.0-17.5) gm/dL Sodium (137-145) mmol/L Glucose (74-99) mg/dL POC Glucose (mg/dL) 138 H 138 H (70-110) mg/dL Calcium (8.4-10.2) mg/dL Ionized Calcium Katerin (4.5-5.3) mg/dL Alkaline Phosphatase (38-126) U/L Total Protein (6.3-8.2) g/dL Albumin (3.5-5.0) g/dL Crossmatch 10/05/24 10/06/24 10/06/24 Range/Units 23:15 00:18 01:10 RBC (4.30-5.90) m/uL Hgb (13.0-17.5) gm/dL Hct (39.0-53.0) % Plt Count (150-450) k/uL Lymphocytes # (1.0-4.8) k/uL PT (10.0-12.5) sec INR (<1.2) ABG pCO2 (35-45) mmHg ABG pO2 (83-108) mmHg ABG HCO3 (21-25) mmol/L ABG O2 Saturation (94-97) % Hemoglobin (13.0-17.5) gm/dL Sodium (137-145) mmol/L Glucose (74-99) mg/dL POC Glucose (mg/dL) 139 H 129 H 128 H (70-110) mg/dL Calcium (8.4-10.2) mg/dL Ionized Calcium Katerin (4.5-5.3) mg/dL Alkaline Phosphatase (38-126) U/L Total Protein (6.3-8.2) g/dL Albumin (3.5-5.0) g/dL Crossmatch 10/06/24 10/06/24 10/06/24 Range/Units 02:12 03:00 03:00 RBC 2.43 L (4.30-5.90) m/uL Hgb 7.1 L (13.0-17.5) gm/dL Hct 21.9 L (39.0-53.0) % Plt Count 138 L (150-450) k/uL Lymphocytes # 0.5 L (1.0-4.8) k/uL PT (10.0-12.5) sec INR (<1.2) ABG pCO2 (35-45) mmHg ABG pO2 (83-108) mmHg ABG HCO3 (21-25) mmol/L ABG O2 Saturation (94-97) % Hemoglobin (13.0-17.5) gm/dL Sodium 132 L (137-145) mmol/L Glucose 123 H (74-99) mg/dL POC Glucose (mg/dL) 124 H (70-110) mg/dL Calcium 7.6 L (8.4-10.2) mg/dL Ionized Calcium Katerin 4.4 L (4.5-5.3) mg/dL Alkaline Phosphatase 37 L (38-126) U/L Total Protein 4.8 L (6.3-8.2) g/dL Albumin 3.1 L (3.5-5.0) g/dL Crossmatch 10/06/24 10/06/24 10/06/24 Range/Units 03:07 04:18 06:15 RBC (4.30-5.90) m/uL Hgb (13.0-17.5) gm/dL Hct (39.0-53.0) % Plt Count (150-450) k/uL Lymphocytes # (1.0-4.8) k/uL PT (10.0-12.5) sec INR (<1.2) ABG pCO2 (35-45) mmHg ABG pO2 (83-108) mmHg ABG HCO3 (21-25) mmol/L ABG O2 Saturation (94-97) % Hemoglobin (13.0-17.5) gm/dL Sodium (137-145) mmol/L Glucose (74-99) mg/dL POC Glucose (mg/dL) 138 H 136 H 132 H (70-110) mg/dL Calcium (8.4-10.2) mg/dL Ionized Calcium Katerin (4.5-5.3) mg/dL Alkaline Phosphatase (38-126) U/L Total Protein (6.3-8.2) g/dL Albumin (3.5-5.0) g/dL Crossmatch 10/06/24 10/06/24 10/06/24 Range/Units 07:07 08:30 09:53 RBC (4.30-5.90) m/uL Hgb (13.0-17.5) gm/dL Hct (39.0-53.0) % Plt Count (150-450) k/uL Lymphocytes # (1.0-4.8) k/uL PT (10.0-12.5) sec INR (<1.2) ABG pCO2 (35-45) mmHg ABG pO2 (83-108) mmHg ABG HCO3 (21-25) mmol/L ABG O2 Saturation (94-97) % Hemoglobin (13.0-17.5) gm/dL Sodium (137-145) mmol/L Glucose (74-99) mg/dL POC Glucose (mg/dL) 126 H 130 H 142 H (70-110) mg/dL Calcium (8.4-10.2) mg/dL Ionized Calcium Katerin (4.5-5.3) mg/dL Alkaline Phosphatase (38-126) U/L Total Protein (6.3-8.2) g/dL Albumin (3.5-5.0) g/dL Crossmatch 10/06/24 10/06/24 Range/Units 11:23 14:01 RBC (4.30-5.90) m/uL Hgb (13.0-17.5) gm/dL Hct (39.0-53.0) % Plt Count (150-450) k/uL Lymphocytes # (1.0-4.8) k/uL PT (10.0-12.5) sec INR (<1.2) ABG pCO2 (35-45) mmHg ABG pO2 (83-108) mmHg ABG HCO3 (21-25) mmol/L ABG O2 Saturation (94-97) % Hemoglobin (13.0-17.5) gm/dL Sodium (137-145) mmol/L Glucose (74-99) mg/dL POC Glucose (mg/dL) 142 H 201 H (70-110) mg/dL Calcium (8.4-10.2) mg/dL Ionized Calcium Katerin (4.5-5.3) mg/dL Alkaline Phosphatase (38-126) U/L Total Protein (6.3-8.2) g/dL Albumin (3.5-5.0) g/dL Crossmatch
[2024-10-06 15:09] LABS: Glucose,Whole Blood 161 mg/dL (70-110)
[2024-10-06 16:25] LABS: Glucose,Whole Blood 138 mg/dL (70-110)
[2024-10-06 17:21] VITALS: BMI 30.5
[2024-10-06 18:02] LABS: Glucose,Whole Blood 157 mg/dL (70-110)
[2024-10-06 20:05] LABS: Glucose,Whole Blood 133 mg/dL (70-110)
[2024-10-06] MEDS: SENNOSIDES-DOCUSATE SODIUM 1 EACH TAB PO SCH (20:31)
[2024-10-06 22:55] LABS: Glucose,Whole Blood 132 mg/dL (70-110)
[2024-10-07 00:07] LABS: Glucose,Whole Blood 134 mg/dL (70-110)
[2024-10-07 00:07] LABS: Glucose,Whole Blood 16 mg/dL (70-110)
--- NOTE | 2024-10-07 00:34 | PN ---
PROGRESS NOTE SUBJECTIVE: This is a 64-year-old, status post bypass, 2 days. He has been up and ambulating around the [place]. His sugar is below 100s to 200s. PHYSICAL EXAMINATION: GENERAL: He is alert and oriented x3. He is sitting up in the chair. He feels relatively well. He is status post bypass surgery. VITAL SIGNS: Temperature 98.7, blood pressure 139/83, pulse 77, respiratory rate 20. He is doing better on oxygen 2 to 3 L and it was up to ejection fraction of 45 to 50; hypertension; dyslipidemia. Supportive management. Monitor hemoglobin. Ambulate. Home in a couple of days. MMODL / IJN: [id number] /
[2024-10-07] MEDS: DEXTROSE 5% IN WATER 100 ML with AMIODARONE 150 MG IV PRN (01:23)
[2024-10-07 02:11] LABS: Glucose,Whole Blood 143 mg/dL (70-110)
[2024-10-07 03:37] LABS: Glucose,Whole Blood 135 mg/dL (70-110)
[2024-10-07 03:44] LABS: Basophils % (A) 0 %; Eosinophils % (A) 0 %; HCT 20.8 % (39.0-53.0); HGB 7.1 gm/dL (13.0-17.5); Lymphocytes # (A) 0.9 k/uL (1.0-4.8); Lymphocytes % (A) 9 %; MCH 29.9 pg (25.0-35.0); MCV 87.9 fL (80.0-100.0); Mean Platelet Volume 8.1; Monocytes # (A) 0.4 k/uL (0-1.0); Monocytes % (A) 4 %; Neutrophils # (A) 8.6 k/uL (1.3-7.7); Neutrophils % (A) 86 %; Platelet Count 157 k/uL (150-450); RBC 2.36 m/uL (4.30-5.90); RDW 14.5 % (11.5-15.5); WBC 10.1 k/uL (3.8-10.6)
[2024-10-07 03:52] LABS: Ionized Calcium 4.5 mg/dL (4.5-5.3)
[2024-10-07 04:00] LABS: ALT 18 U/L (4-49); AST 30 U/L (17-59); African American GFR (CKD) >90 (>60 ml/min/1.73 sqM); Albumin 2.9 g/dL (3.5-5.0); Alkaline Phosphatase 36 U/L (38-126); Anion Gap 7 mmol/L; Blood Urea Nitrogen 17 mg/dL (9-20); Carbon Dioxide 21 mmol/L (22-30); Chloride 102 mmol/L (98-107); Glucose 121 mg/dL (74-99); Non-African American GFR(CKD) 81 (>60 ml/min/1.73 sqM); Potassium 3.8 mmol/L (3.5-5.1); Sodium 130 mmol/L (137-145); Total Bilirubin 0.8 mg/dL (0.2-1.3)
[2024-10-07] MEDS: POTASSIUM CHLORIDE ER 20 MEQ TAB.ER PO SCH (06:11)
[2024-10-07] MEDS: PANTOPRAZOLE 40 MG TABLET PO SCH (06:12)
[2024-10-07 06:19] LABS: Glucose,Whole Blood 143 mg/dL (70-110)
[2024-10-07] MEDS: AMIODARONE 360 MG in DEXTROSE 5% IN WATER 200 ML IV PRN (06:57)
--- NOTE | 2024-10-07 07:46 | XR ---
EXAMINATION TYPE: XR chest 1V portable DATE OF EXAM: 10/07/2024 5:39 AM COMPARISON: Chest radiograph from one day prior. CLINICAL INDICATION: Male, 64 years old with history of Post Operative Cardiac Surgery; TECHNIQUE: XR chest 1V portable Frontal view of the chest. FINDINGS: Lungs/Pleura: There is no evidence of pleural effusion, focal consolidation, or pneumothorax. Pulmonary vascularity: Unremarkable. Heart/mediastinum: Cardiomediastinal silhouette is unremarkable. Left atrial appendage occlusion humberto ce is present. Musculoskeletal: No acute osseous pathology. Midline sternotomy wires are noted. Other findings: None Lines/Tubes: Drainage tubes with tips projecting over the mediastinum. There is a Kellogg-Daquan catheter sheath in place. Bilateral thoracotomy tubes are present without evidence of pneumothorax. IMPRESSION: Postprocedural changes of mild pulmonary edema. Removal of endotracheal tube. [facility], , 10/07/2024 7:44 AM
[2024-10-07 08:03] LABS: Glucose,Whole Blood 168 mg/dL (70-110)
--- NOTE | 2024-10-07 08:48 | P.PN ---
Subjective Progress Note Date: 10/07/24 Principal diagnosis: Triple-vessel coronary artery disease with unstable angina, mild left ventricular dysfunction. 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, hypertension, hyperlipidemia POD #2 triple-vessel coronary artery bypass grafting using the in situ left intramammary artery to the left anterior descending artery, left radial artery from the aorta to the diagonal artery, reverse saphenous vein graft from the aorta to the posterior descending artery, exclusion of the left atrial appendage using a 35mm AtriClip, endoscopic harvesting of the left radial artery, endoscopic harvesting of the left greater saphenous vein, graft flow measurement using the [employer] system, intraoperative transesophageal echocardiogram and epiaortic scanning Postoperative acute blood loss anemia and thrombocytopenia, likely from cardiopulmonary bypass pump and hemodilution Brief episode atrial fibrillation, known and common occurrence after open heart surgery, currently sinus rhythm The patient was seen and examined sitting up in recliner in the intensive care unit this morning in no acute distress. Remains in sinus rhythm, hemodynamically stable. Remains on room air with oxygen saturation in the high 90s. He did have a brief episode of atrial fibrillation last night which was treated with IV amiodarone. He does complain of expected postsurgical pain which is better controlled today, denies shortness of breath. Able to achieve 1000 mL on his incentive spirometry. Right internal jugular cordis, right radial arterial line, mediastinal/right/left pleural chest tubes all present. No other new concerns. Objective - Vital Signs Vital signs: Vital Signs Temp 98.0 F 10/07/24 08:00 Pulse 96 10/07/24 08:00 Resp 30 H 10/07/24 08:00 BP 139/83 10/05/24 06:04 Pulse Ox 97 10/07/24 08:00 FiO2 50 10/05/24 16:00 Intake & Output 10/06/24 10/07/24 10/07/24 18:59 06:59 18:59 Intake Total 1154.200 480.831 78.635 Output Total 645 970 100 Balance 509.200 -489.169 -21.365 Weight 96.6 kg 98 kg Intake: IV 430 360 60 Sodium Chloride 0.9% 1, 380 360 60 000 ml @ 30 mls/hr IV . Q24H [facility] Rx#:[id number] ceFAZolin 2 gm In Sodium 50 Chloride 0.9% 50 ml @ 100 mls/hr IVPB ONCE ONE Rx# :[id number] Intake, IV Titration 144.200 120.831 18.635 Amount Calcium Gluconate in NaCl 100 1 gm In Saline 1 100ml. bag @ 100 mls/hr IVPB ONCE ONE Rx#:[id number] Dextrose 5% in Water 100 100 ml @ 618 mls/hr IV .Q10M PRN with Amiodarone 150 mg Rx#:[id number] Insulin Regular 100 unit 28.092 20.831 18.635 In Sodium Chloride 0.9% 100 ml @ Per Protocol IV .Q0M [facility] Rx#:[id number] Insulin Regular 100 unit 16.108 In Sodium Chloride 0.9% 100 ml @ Titrate IV .Q0M [facility] Rx#:[id number] Oral 580 Output: Chest Tube Drainage 150 170 30 Chest Tube Left 20 20 0 Chest Tube Mediastinal 40 40 10 Chest Tube Right 90 110 20 Drainage 20 Left Calf 10 Left Wrist 10 Urine 475 800 70 Other: Voiding Method Indwelling Catheter Indwelling Catheter Indwelling Catheter ABP, PAP, CO, CI - Last Documented Arterial Blood Pressure 109/52 Pulmonary Artery Pressure 26/13 Cardiac Output 7.4 Cardiac Index 3.5 - Exam CONSTITUTIONAL: Appears comfortable, cooperative, no acute distress RESPIRATORY: Lungs sounds diminished in the bases bilaterally. Respirations even, nonlabored. Currently on room air with oxygen saturation 98%. Able to achieve 1000 mL on incentive spirometry. Strong cough. CARDIOVASCULAR: S1, S2 present. Regular rate and rhythm, sinus rhythm on telemetry. Sternum stable. Palpable peripheral pulses bilaterally. No edema present. No calf pain or tenderness noted. Heart hugger in place with patient demonstrating appropriate use. Antiembolism stockings, SCDs present. GASTROINTESTINAL: Abdomen soft, nontender, nondistended. Active bowel sounds present 4 quadrants. Tolerating diet. Denies flatus GENITOURINARY: Morrow present draining clear, yellow urine. Output overnight 25-150 mL per hour, 1275 mL in the last 24 hours INTEGUMENTARY: Skin is warm and dry with evidence of good perfusion. Anterior chest incision well approximated and covered with dry intact dressing. Left radial harvest as well as left lower extremity EVH site well approximated without redness or drainage NEUROLOGIC: Cranial nerves II through XII intact MUSKULOSKELETAL: Able to move all extremities, strength equal bilaterally, gait normal PSYCHIATRIC: Alert and oriented to person place and time, appropriate affect, intact judgment and insight INVASIVE LINES AND TUBES: Mediastinal/left/right pleural chest tubes present and connected to wall suction, no air leaks present. Mediastinal tube with 10 mL serosanguineous drainage overnight, 100 mL in the last 24 hours. Left pleural chest tube with 20 mL serosanguineous drainage overnight, 50 mL in the last 24 hours. Right pleural chest tube with 110 mL serosanguineous drainage overnight, 200 mL in the last 24 hours. Atrial epicardial pacemaker wire present, connected to generator, generator off. Right internal jugular cordis, right radial arterial line present. Last CVP 13. - Allied health notes Allied health notes reviewed: nursing - Labs CBC & Chem 7: 10/07/24 03:30 10/07/24 03:30 Labs: Abnormal Lab Results - Last 24 Hours (Table) 10/06/24 10/06/24 10/06/24 Range/Units 09:53 11:23 14:01 RBC (4.30-5.90) m/uL Hgb (13.0-17.5) gm/dL Hct (39.0-53.0) % Neutrophils # (1.3-7.7) k/uL Lymphocytes # (1.0-4.8) k/uL Sodium (137-145) mmol/L Carbon Dioxide (22-30) mmol/L Glucose (74-99) mg/dL POC Glucose (mg/dL) 142 H 142 H 201 H (70-110) mg/dL Calcium (8.4-10.2) mg/dL Alkaline Phosphatase (38-126) U/L Total Protein (6.3-8.2) g/dL Albumin (3.5-5.0) g/dL 10/06/24 10/06/24 10/06/24 Range/Units 15:06 16:24 18:00 RBC (4.30-5.90) m/uL Hgb (13.0-17.5) gm/dL Hct (39.0-53.0) % Neutrophils # (1.3-7.7) k/uL Lymphocytes # (1.0-4.8) k/uL Sodium (137-145) mmol/L Carbon Dioxide (22-30) mmol/L Glucose (74-99) mg/dL POC Glucose (mg/dL) 161 H 138 H 157 H (70-110) mg/dL Calcium (8.4-10.2) mg/dL Alkaline Phosphatase (38-126) U/L Total Protein (6.3-8.2) g/dL Albumin (3.5-5.0) g/dL 10/06/24 10/06/24 10/07/24 Range/Units 20:04 22:53 00:03 RBC (4.30-5.90) m/uL Hgb (13.0-17.5) gm/dL Hct (39.0-53.0) % Neutrophils # (1.3-7.7) k/uL Lymphocytes # (1.0-4.8) k/uL Sodium (137-145) mmol/L Carbon Dioxide (22-30) mmol/L Glucose (74-99) mg/dL POC Glucose (mg/dL) 133 H 132 H 16 L* (70-110) mg/dL Calcium (8.4-10.2) mg/dL Alkaline Phosphatase (38-126) U/L Total Protein (6.3-8.2) g/dL Albumin (3.5-5.0) g/dL 10/07/24 10/07/24 10/07/24 Range/Units 00:06 02:10 03:30 RBC 2.36 L (4.30-5.90) m/uL Hgb 7.1 L (13.0-17.5) gm/dL Hct 20.8 L (39.0-53.0) % Neutrophils # 8.6 H (1.3-7.7) k/uL Lymphocytes # 0.9 L (1.0-4.8) k/uL Sodium (137-145) mmol/L Carbon Dioxide (22-30) mmol/L Glucose (74-99) mg/dL POC Glucose (mg/dL) 134 H 143 H (70-110) mg/dL Calcium (8.4-10.2) mg/dL Alkaline Phosphatase (38-126) U/L Total Protein (6.3-8.2) g/dL Albumin (3.5-5.0) g/dL 10/07/24 10/07/24 10/07/24 Range/Units 03:30 03:35 06:18 RBC (4.30-5.90) m/uL Hgb (13.0-17.5) gm/dL Hct (39.0-53.0) % Neutrophils # (1.3-7.7) k/uL Lymphocytes # (1.0-4.8) k/uL Sodium 130 L (137-145) mmol/L Carbon Dioxide 21 L (22-30) mmol/L Glucose 121 H (74-99) mg/dL POC Glucose (mg/dL) 135 H 143 H (70-110) mg/dL Calcium 8.0 L (8.4-10.2) mg/dL Alkaline Phosphatase 36 L (38-126) U/L Total Protein 5.0 L (6.3-8.2) g/dL Albumin 2.9 L (3.5-5.0) g/dL 10/07/24 Range/Units 08:01 RBC (4.30-5.90) m/uL Hgb (13.0-17.5) gm/dL Hct (39.0-53.0) % Neutrophils # (1.3-7.7) k/uL Lymphocytes # (1.0-4.8) k/uL Sodium (137-145) mmol/L Carbon Dioxide (22-30) mmol/L Glucose (74-99) mg/dL POC Glucose (mg/dL) 168 H (70-110) mg/dL Calcium (8.4-10.2) mg/dL Alkaline Phosphatase (38-126) U/L Total Protein (6.3-8.2) g/dL Albumin (3.5-5.0) g/dL - Imaging and Cardiology Chest x-ray: report reviewed, image reviewed Assessment and Plan Assessment: Triple-vessel coronary artery disease with unstable angina, status post three- vessel CABG Mild left ventricular dysfunction, EF 45-50% Postoperative acute blood loss anemia and thrombocytopenia, likely from cardiopulmonary bypass pump and hemodilution Brief episode atrial fibrillation, known common occurrence after open heart surgery, status post ligation of the left atrial appendage, currently sinus 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 Will increase beta-ryan therapy as tolerated Continue amiodarone for A-fib prophylaxis, finish current IV bag, continue oral. No anticoagulation necessary unless patient remains in atrial fibrillation greater than 24 hours Encourage incentive spirometry use 10 times every hour while awake. Bronchodilators per pulmonology Will monitor daily labs and x-rays. Electrolyte replacement per protocol. Will give 20 mg IV push Lasix today Increase activity, ambulate as tolerated. PT/OT/cardiac rehab following GI/DVT prophylaxis Pain control per current medication regimen Insulin management per internal medicine. Patient is not diabetic, preoperative hemoglobin A1c 6% Discontinue Cordis, arterial line Will discontinue mediastinal, left pleural chest tubes, continue right chest tube for another 24 hours, monitor and record output Discontinue continue Morrow catheter after diuresis from Lasix, may bladder scan and straight cath for greater than 300 mL residual Continue to monitor record strict accurate intake and output Daily weights Will place transfer orders for 3 S. cardiac stepdown unit, may transfer when bed available More recommendations to follow as patient progresses
[2024-10-07] MEDS: FUROSEMIDE 10 MG/ML 2 ML VIAL IV ONE (09:12)
[2024-10-07 09:16] LABS: Glucose,Whole Blood 147 mg/dL (70-110)
--- NOTE | 2024-10-07 09:34 | P.PN ---
Subjective Progress Note Date: 10/07/24 The patient is a 64-year-old male who is postop day 2 from triple-vessel coronary bypass. Patient has been intubated and MOJGAN drains have been removed. Patient will likely have chest tubes removed later today. Overnight the patient did develop A-fib with RVR and is currently on an amiodarone drip. He is now back in sinus rhythm. Patient interviewed and examined resting comfortably in the recliner chair. He states his pain is well-managed. No dizziness or lightheadedness upon standing. No difficulty breathing. He is using his incentive spirometer GENERAL: Well-appearing, well-nourished and in no acute distress. NECK: Supple without JVD or thyromegaly. LUNGS: Breath sounds clear to auscultation bilaterally. Respiration equal and unlabored. No wheezes, rales or rhonchi. HEART: Regular rate and rhythm without murmurs, rubs or gallops. S1 and S2 heard. Heart hugger in place EXTREMITIES: Normal range of motion, no edema. No clubbing or cyanosis. Peripheral pulses intact and strong. TELEMETRY: Atrial fibrillation with RVR overnight. 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 Objective - Vital Signs Vital signs: Vital Signs Temp 98.0 F 10/07/24 08:00 Pulse 96 10/07/24 08:00 Resp 30 H 10/07/24 08:00 BP 139/83 10/05/24 06:04 Pulse Ox 97 10/07/24 08:00 FiO2 50 10/05/24 16:00 Intake & Output 10/06/24 10/07/24 10/07/24 18:59 06:59 18:59 Intake Total 1154.200 480.831 112.406 Output Total 645 970 190 Balance 509.200 -489.169 -77.594 Weight 96.6 kg 98 kg Intake: IV 430 360 90 Sodium Chloride 0.9% 1, 380 360 90 000 ml @ 30 mls/hr IV . Q24H [facility] Rx#:[id number] ceFAZolin 2 gm In Sodium 50 Chloride 0.9% 50 ml @ 100 mls/hr IVPB ONCE ONE Rx# :[id number] Intake, IV Titration 144.200 120.831 22.406 Amount Calcium Gluconate in NaCl 100 1 gm In Saline 1 100ml. bag @ 100 mls/hr IVPB ONCE ONE Rx#:[id number] Dextrose 5% in Water 100 100 ml @ 618 mls/hr IV .Q10M PRN with Amiodarone 150 mg Rx#:[id number] Insulin Regular 100 unit 28.092 20.831 22.406 In Sodium Chloride 0.9% 100 ml @ Per Protocol IV .Q0M [facility] Rx#:[id number] Insulin Regular 100 unit 16.108 In Sodium Chloride 0.9% 100 ml @ Titrate IV .Q0M [facility] Rx#:[id number] Oral 580 Output: Chest Tube Drainage 150 170 30 Chest Tube Left 20 20 0 Chest Tube Mediastinal 40 40 10 Chest Tube Right 90 110 20 Drainage 20 Left Calf 10 Left Wrist 10 Urine 475 800 160 Other: Voiding Method Indwelling Catheter Indwelling Catheter Indwelling Catheter ABP, PAP, CO, CI - Last Documented Arterial Blood Pressure 109/52 Pulmonary Artery Pressure 26/13 Cardiac Output 7.4 Cardiac Index 3.5 - Labs CBC & Chem 7: 10/07/24 03:30 10/07/24 03:30 Labs: Abnormal Lab Results - Last 24 Hours (Table) 10/06/24 10/06/24 10/06/24 Range/Units 09:53 11:23 14:01 RBC (4.30-5.90) m/uL Hgb (13.0-17.5) gm/dL Hct (39.0-53.0) % Neutrophils # (1.3-7.7) k/uL Lymphocytes # (1.0-4.8) k/uL Sodium (137-145) mmol/L Carbon Dioxide (22-30) mmol/L Glucose (74-99) mg/dL POC Glucose (mg/dL) 142 H 142 H 201 H (70-110) mg/dL Calcium (8.4-10.2) mg/dL Alkaline Phosphatase (38-126) U/L Total Protein (6.3-8.2) g/dL Albumin (3.5-5.0) g/dL 10/06/24 10/06/24 10/06/24 Range/Units 15:06 16:24 18:00 RBC (4.30-5.90) m/uL Hgb (13.0-17.5) gm/dL Hct (39.0-53.0) % Neutrophils # (1.3-7.7) k/uL Lymphocytes # (1.0-4.8) k/uL Sodium (137-145) mmol/L Carbon Dioxide (22-30) mmol/L Glucose (74-99) mg/dL POC Glucose (mg/dL) 161 H 138 H 157 H (70-110) mg/dL Calcium (8.4-10.2) mg/dL Alkaline Phosphatase (38-126) U/L Total Protein (6.3-8.2) g/dL Albumin (3.5-5.0) g/dL 10/06/24 10/06/24 10/07/24 Range/Units 20:04 22:53 00:03 RBC (4.30-5.90) m/uL Hgb (13.0-17.5) gm/dL Hct (39.0-53.0) % Neutrophils # (1.3-7.7) k/uL Lymphocytes # (1.0-4.8) k/uL Sodium (137-145) mmol/L Carbon Dioxide (22-30) mmol/L Glucose (74-99) mg/dL POC Glucose (mg/dL) 133 H 132 H 16 L* (70-110) mg/dL Calcium (8.4-10.2) mg/dL Alkaline Phosphatase (38-126) U/L Total Protein (6.3-8.2) g/dL Albumin (3.5-5.0) g/dL 10/07/24 10/07/24 10/07/24 Range/Units 00:06 02:10 03:30 RBC 2.36 L (4.30-5.90) m/uL Hgb 7.1 L (13.0-17.5) gm/dL Hct 20.8 L (39.0-53.0) % Neutrophils # 8.6 H (1.3-7.7) k/uL Lymphocytes # 0.9 L (1.0-4.8) k/uL Sodium (137-145) mmol/L Carbon Dioxide (22-30) mmol/L Glucose (74-99) mg/dL POC Glucose (mg/dL) 134 H 143 H (70-110) mg/dL Calcium (8.4-10.2) mg/dL Alkaline Phosphatase (38-126) U/L Total Protein (6.3-8.2) g/dL Albumin (3.5-5.0) g/dL 10/07/24 10/07/24 10/07/24 Range/Units 03:30 03:35 06:18 RBC (4.30-5.90) m/uL Hgb (13.0-17.5) gm/dL Hct (39.0-53.0) % Neutrophils # (1.3-7.7) k/uL Lymphocytes # (1.0-4.8) k/uL Sodium 130 L (137-145) mmol/L Carbon Dioxide 21 L (22-30) mmol/L Glucose 121 H (74-99) mg/dL POC Glucose (mg/dL) 135 H 143 H (70-110) mg/dL Calcium 8.0 L (8.4-10.2) mg/dL Alkaline Phosphatase 36 L (38-126) U/L Total Protein 5.0 L (6.3-8.2) g/dL Albumin 2.9 L (3.5-5.0) g/dL 10/07/24 10/07/24 Range/Units 08:01 09:15 RBC (4.30-5.90) m/uL Hgb (13.0-17.5) gm/dL Hct (39.0-53.0) % Neutrophils # (1.3-7.7) k/uL Lymphocytes # (1.0-4.8) k/uL Sodium (137-145) mmol/L Carbon Dioxide (22-30) mmol/L Glucose (74-99) mg/dL POC Glucose (mg/dL) 168 H 147 H (70-110) mg/dL Calcium (8.4-10.2) mg/dL Alkaline Phosphatase (38-126) U/L Total Protein (6.3-8.2) g/dL Albumin (3.5-5.0) g/dL
[2024-10-07 11:33] LABS: Glucose,Whole Blood 130 mg/dL (70-110)
[2024-10-07] MEDS: INSULIN LISPRO (HumaLOG) 100 UNIT/ML 10 mL VL SQ SCH (11:41)
[2024-10-07] MEDS: KETOROLAC 15 MG/ML 1 ML VIAL IVP SCH (13:01)
--- NOTE | 2024-10-07 13:22 | P.PN ---
Subjective Progress Note Date: 10/07/24 Principal diagnosis: Triple-vessel coronary artery bypass grafting using the in situ left intramammary artery to the left anterior descending artery, left radial artery from the aorta to the diagonal artery, reverse saphenous vein graft from the aorta to the posterior descending artery, postoperative day #2 This is a 64-year-old male patient who is being seen preoperatively as the patient is scheduled to undergo coronary bypass surgery on 10/05/2024. The patient presented with chest pain and an abnormal stress test and he underwent a cardiac catheterization the patient was found to have 99% stenosis involving the LAD and a diagonal branch, and dominant RCA with 60 to 70% mid stenosis and totally occluded distal RCA with collaterals from the septals toward the PDA and PLV. This finding consultation was placed to cardiothoracic surgery for revascularization recommendations. Of note he did have a transthoracic echocardiogram completed revealing reduced left ventricular systolic function with EF 45 to 50%, mild to moderate mitral regurgitation and mild tricuspid r egurgitation without pulmonary hypertension, there was no pericardial effusion and the aortic root and proximal ascending aorta more normal size. The patient otherwise doing well. No specific complaints. He is known to have hypertension hyperlipidemia. No respiratory difficulties for now. History of any chest pain for now. The chest x-ray from 10/02/2024 was reviewed and showed no acute cardi opulmonary process. CAT scan of the chest done on 10/01/2024 shows a 2 cm right thyroid nodule. Otherwise, the lungs showed some mild limited and linear scarring and reticulation in the right upper lobe with focal mild linear scarring in the lingula. Otherwise, no other significant abnormalities were noted. Minimal amount of plaques involving the thoracic aorta. The white cell count is at 5.8, he was 12.1 and a platelet count of 411. Normal thyroid function test. Normal UA. proBNP level was 1000. TSH is at 4.12. Good performance status. On 10/04/2024, the patient has no specific complaints and the patient is hemodynamic stable and free of any chest pain. Awaiting surgery for tomorrow. The white cell count of 5.8 with hemoglobin 12.7 and a platelet count of 388. Normal coagulation profile. Normal electrolytes. BUN is 22 with a creatinine of 1.08. LFTs are normal. The patient continues to use incentive spirometer. He is quite active. No cardiac arrhythmias have been noted. Patient was seen today on 10/05/2024, he is status post Triple-vessel coronary artery bypass grafting using the in situ left intramammary artery to the left anterior descending artery, left radial artery from the aorta to the diagonal artery, reverse saphenous vein graft from the aorta to the posterior descending artery, postoperative day #0, patient was seen in the ICU shortly after he arrived, patient is mostly on nitroglycerin drip, 5 mcg/min, patient is intubated and mechanically ventilated, patient is on tidal volume of 500, assist-control rate of 14, FiO2 100%, and PEEP of 5 ABG showed a pO2 of 360 pCO2 37 pH of 7.39. During my evaluation, the patient is awake but seems to be quite anxious, restless, agitated, he was complaining of pain, patient received pain medication, and shortly after we proceeded with trial of weaning with CPAP. Shortly after his weaning parameters were noted, and patient was extubated to a nasal cannula. ABG on CPAP showed a pO2 of 67 pCO2 34 pH of 7.38 and was on 40% FiO2. Cardiac output was 6.5, and his cardiac index was 3.2. Chest x-ray showed postoperative changes, no evidence of active disease. Patient was seen today on 10/06/2024, he is now postoperative day #1. Patient remains in the ICU, he was extubated at 16: 30 5 PM yesterday, he is in sinus rhythm, hemodynamically stable, not requiring any pressors, he is receiving the nitro for vessel spasm prophylaxis. He is on 4 L nasal cannula, does not seem to be in distress. Not achieving much on his incentive spirometry, no more than 500 cc. Chest x-ray is showing mostly bibasilar atelectasis and postoperative changes. Continues to have his right internal jugular [place], he has mediastinal right and left pleural chest tubes in place, and no leaks noted. WBC count is 6.1 hemoglobin is 7.1, basic metabolic profile is normal renal profile showed a BUN of 18 creatinine 0.81 Patient was seen today on 10/07/2024, he is now postoperative day #2. Patient went into atrial fibrillation last night, he is now on amiodarone as per protocol. He is resting in a recliner, patient is not in any distress hemodynamically stable, on room air with O2 saturation in the 90s, again he had a brief episode last night with atrial fibrillation treated with IV amiodarone. Today asymptomatic achieving about 1000 cc with his intensive spirometry. Continues to have mediastinal and right and left pleural chest tubes present. Chest x-ray showed mostly atelectasis, and postoperative changes. With some pulmonary vascular congestion. Bilateral chest tubes noted on the chest x-ray, no evidence of pneumothorax. WBC count today is 10.1 hemoglobin 7.1 electrolytes showed low sodium of 130 electrolytes otherwise are normal BUN is normal creatinine is normal at 0.98 Objective - Vital Signs Vital signs: Vital Signs Temp 98.0 F 10/07/24 08:00 Pulse 82 10/07/24 11:34 Resp 16 10/07/24 11:00 BP 101/62 10/07/24 11:00 Pulse Ox 98 10/07/24 11:30 FiO2 50 10/05/24 16:00 Intake & Output 10/06/24 10/07/24 10/07/24 18:59 06:59 18:59 Intake Total 1154.200 480.831 142.406 Output Total 887 139 0864 Balance 509.200 -489.169 -1007.594 Weight 96.6 kg 98 kg Intake: IV 430 360 120 Sodium Chloride 0.9% 1, 380 360 120 000 ml @ 30 mls/hr IV . Q24H [facility] Rx#:[id number] ceFAZolin 2 gm In Sodium 50 Chloride 0.9% 50 ml @ 100 mls/hr IVPB ONCE ONE Rx# :[id number] Intake, IV Titration 144.200 120.831 22.406 Amount Calcium Gluconate in NaCl 100 1 gm In Saline 1 100ml. bag @ 100 mls/hr IVPB ONCE ONE Rx#:[id number] Dextrose 5% in Water 100 100 ml @ 618 mls/hr IV .Q10M PRN with Amiodarone 150 mg Rx#:[id number] Insulin Regular 100 unit 28.092 20.831 22.406 In Sodium Chloride 0.9% 100 ml @ Per Protocol IV .Q0M [facility] Rx#:[id number] Insulin Regular 100 unit 16.108 In Sodium Chloride 0.9% 100 ml @ Titrate IV .Q0M [facility] Rx#:[id number] Oral 580 Output: Chest Tube Drainage 150 170 30 Chest Tube Left 20 20 0 Chest Tube Mediastinal 40 40 10 Chest Tube Right 90 110 20 Drainage 20 Left Calf 10 Left Wrist 10 Urine 038 276 7051 Other: Voiding Method Indwelling Catheter Indwelling Catheter Indwelling Catheter ABP, PAP, CO, CI - Last Documented Arterial Blood Pressure 102/47 Pulmonary Artery Pressure 26/13 Cardiac Output 7.4 Cardiac Index 3.5 - Exam CONSTITUTIONAL: Revealed 64-year-old white male, on room air Head: Atraumatic, normocephalic RESPIRATORY: Diminished breath sound bilaterally no rhonchi no wheezes, chest tubes and mediastinal tube noted. CARDIOVASCULAR: S1, S2 present. Regular rate and rhythm, sinus rhythm on telemetry. Palpable peripheral pulses bilaterally. No edema present, positive pericardial rub GASTROINTESTINAL: Soft nontender no rebound no guarding. INTEGUMENTARY: Skin is warm, no rashes NEUROLOGIC: Alert and oriented x 3 no gross focal deficit MUSKULOSKELETAL: No deformities and no limitation range of motion PSYCHIATRIC: Normal mood affect and no mental status examination - Labs CBC & Chem 7: 10/07/24 03:30 10/07/24 03:30 Labs: Abnormal Lab Results - Last 24 Hours (Table) 10/06/24 10/06/24 10/06/24 Range/Units 14:01 15:06 16:24 RBC (4.30-5.90) m/uL Hgb (13.0-17.5) gm/dL Hct (39.0-53.0) % Neutrophils # (1.3-7.7) k/uL Lymphocytes # (1.0-4.8) k/uL Sodium (137-145) mmol/L Carbon Dioxide (22-30) mmol/L Glucose (74-99) mg/dL POC Glucose (mg/dL) 201 H 161 H 138 H (70-110) mg/dL Calcium (8.4-10.2) mg/dL Alkaline Phosphatase (38-126) U/L Total Protein (6.3-8.2) g/dL Albumin (3.5-5.0) g/dL 10/06/24 10/06/24 10/06/24 Range/Units 18:00 20:04 22:53 RBC (4.30-5.90) m/uL Hgb (13.0-17.5) gm/dL Hct (39.0-53.0) % Neutrophils # (1.3-7.7) k/uL Lymphocytes # (1.0-4.8) k/uL Sodium (137-145) mmol/L Carbon Dioxide (22-30) mmol/L Glucose (74-99) mg/dL POC Glucose (mg/dL) 157 H 133 H 132 H (70-110) mg/dL Calcium (8.4-10.2) mg/dL Alkaline Phosphatase (38-126) U/L Total Protein (6.3-8.2) g/dL Albumin (3.5-5.0) g/dL 10/07/24 10/07/24 10/07/24 Range/Units 00:03 00:06 02:10 RBC (4.30-5.90) m/uL Hgb (13.0-17.5) gm/dL Hct (39.0-53.0) % Neutrophils # (1.3-7.7) k/uL Lymphocytes # (1.0-4.8) k/uL Sodium (137-145) mmol/L Carbon Dioxide (22-30) mmol/L Glucose (74-99) mg/dL POC Glucose (mg/dL) 16 L* 134 H 143 H (70-110) mg/dL Calcium (8.4-10.2) mg/dL Alkaline Phosphatase (38-126) U/L Total Protein (6.3-8.2) g/dL Albumin (3.5-5.0) g/dL 10/07/24 10/07/24 10/07/24 Range/Units 03:30 03:30 03:35 RBC 2.36 L (4.30-5.90) m/uL Hgb 7.1 L (13.0-17.5) gm/dL Hct 20.8 L (39.0-53.0) % Neutrophils # 8.6 H (1.3-7.7) k/uL Lymphocytes # 0.9 L (1.0-4.8) k/uL Sodium 130 L (137-145) mmol/L Carbon Dioxide 21 L (22-30) mmol/L Glucose 121 H (74-99) mg/dL POC Glucose (mg/dL) 135 H (70-110) mg/dL Calcium 8.0 L (8.4-10.2) mg/dL Alkaline Phosphatase 36 L (38-126) U/L Total Protein 5.0 L (6.3-8.2) g/dL Albumin 2.9 L (3.5-5.0) g/dL 10/07/24 10/07/24 10/07/24 Range/Units 06:18 08:01 09:15 RBC (4.30-5.90) m/uL Hgb (13.0-17.5) gm/dL Hct (39.0-53.0) % Neutrophils # (1.3-7.7) k/uL Lymphocytes # (1.0-4.8) k/uL Sodium (137-145) mmol/L Carbon Dioxide (22-30) mmol/L Glucose (74-99) mg/dL POC Glucose (mg/dL) 143 H 168 H 147 H (70-110) mg/dL Calcium (8.4-10.2) mg/dL Alkaline Phosphatase (38-126) U/L Total Protein (6.3-8.2) g/dL Albumin (3.5-5.0) g/dL 10/07/24 Range/Units 11:32 RBC (4.30-5.90) m/uL Hgb (13.0-17.5) gm/dL Hct (39.0-53.0) % Neutrophils # (1.3-7.7) k/uL Lymphocytes # (1.0-4.8) k/uL Sodium (137-145) mmol/L Carbon Dioxide (22-30) mmol/L Glucose (74-99) mg/dL POC Glucose (mg/dL) 130 H (70-110) mg/dL Calcium (8.4-10.2) mg/dL Alkaline Phosphatase (38-126) U/L Total Protein (6.3-8.2) g/dL Albumin (3.5-5.0) g/dL Assessment and Plan Assessment: Impression: Triple-vessel coronary artery bypass grafting using the in situ left intramammary artery to the left anterior descending artery, left radial artery from the aorta to the diagonal artery, reverse saphenous vein graft from the aorta to the posterior descending artery, postoperative day #2 Mild LV dysfunction with ejection fraction of 45% Moderate mitral regurgitation Benign essential hypertension Dyslipidemia History of thyroid nodule with normal thyroid function test. Postoperative atelectasis, expected Recommendation: Continue medical therapy with aspirin statin Plavix beta- blockers Continue amiodarone for A-fib Discontinue oxygen, patient is presently on room air Continue ambulation and incentive spirometry Continue GI and DVT prophylaxis Continue Toradol and Robaxin Continue insulin for his diabetes Daily x-rays of the chest Intermittently diurese the patient as he has some component of mild pulmonary vascular congestion on chest x-ray today. Continue to monitor I's and O's Continue to monitor daily labs Will continue to follow while in ICU. Time with Patient: Less than 30
[2024-10-07 16:35] LABS: Glucose,Whole Blood 96 mg/dL (70-110)
[2024-10-07 20:35] LABS: Glucose,Whole Blood 137 mg/dL (70-110)
--- NOTE | 2024-10-07 21:20 | PN ---
PROGRESS NOTE Status post bypass surgery. Hopefully, he will be able to go home soon. Blood pressure 119/70, sating 94 on room air. He had a very good recovery going. After bypass, he gave a brief episode of atrial fibrillation for which amiodarone was given last night. Once his pleural chest tubes are out, possibly he can go home. He has been up and ambulating. OBJECTIVE: VITAL SIGNS: Blood pressure 101/62, temperature 98, pulse 82 respiratory rate 16 to 18. CARDIOVASCULAR: S1, S2. PSYCHIATRIC: Fair mood and affect Hemoglobin is 7.1, white count 10.1. He had aspirin and Plavix, beta blockers, and amiodarone. He is going to ambulate. Monitor his hemoglobin, possibly transfusion if he needs one. Prognosis is guarded. MMODL / IJN: [id number] /
[2024-10-07] MEDS: METOPROLOL TARTRATE 25 MG TAB PO STA (23:14)
[2024-10-08 06:25] LABS: Glucose,Whole Blood 139 mg/dL (70-110)
[2024-10-08 06:44] LABS: Basophils % (A) 0 %; Eosinophils % (A) 0 %; HCT 22.5 % (39.0-53.0); Hypochromasia Slight; Lymphocytes # (A) 0.8 k/uL (1.0-4.8); Lymphocytes % (A) 8 %; MCH 28.6 pg (25.0-35.0); MCHC 31.1 g/dL (31.0-37.0); MCV 92.1 fL (80.0-100.0); Mean Platelet Volume 8.4; Monocytes # (A) 0.3 k/uL (0-1.0); Monocytes % (A) 3 %; Neutrophils # (A) 8.3 k/uL (1.3-7.7); Neutrophils % (A) 86 %; Platelet Count 192 k/uL (150-450); RBC 2.44 m/uL (4.30-5.90); RDW 14.7 % (11.5-15.5); WBC 9.6 k/uL (3.8-10.6)
[2024-10-08 06:54] LABS: ALT 16 U/L (4-49); AST 28 U/L (17-59); African American GFR (CKD) 70 (>60 ml/min/1.73 sqM); Albumin 3.1 g/dL (3.5-5.0); Alkaline Phosphatase 49 U/L (38-126); Anion Gap 11 mmol/L; Blood Urea Nitrogen 19 mg/dL (9-20); Calcium 7.9 mg/dL (8.4-10.2); Carbon Dioxide 22 mmol/L (22-30); Chloride 101 mmol/L (98-107); Glucose 118 mg/dL (74-99); Non-African American GFR(CKD) 61 (>60 ml/min/1.73 sqM); Potassium 4.1 mmol/L (3.5-5.1); Sodium 134 mmol/L (137-145); Total Bilirubin 0.8 mg/dL (0.2-1.3); Total Protein 5.3 g/dL (6.3-8.2)
--- NOTE | 2024-10-08 07:28 | XR ---
EXAMINATION TYPE: XR chest 1V portable DATE OF EXAM: 10/08/2024 6:48 AM COMPARISON: Chest radiograph from one day prior. CLINICAL INDICATION: Male, 64 years old with history of Postcardiac surgery; [facility] TECHNIQUE: XR chest 1V portable Frontal view of the chest. FINDINGS: Lungs/Pleura: There is no evidence of pleural effusion, focal consolidation, or pneumothorax. Pulmonary vascularity: Unremarkable. Heart/mediastinum: Cardiomediastinal silhouette is unremarkable. Left atrial appendage occlusion humberto ce is present. Musculoskeletal: No acute osseous pathology. Midline sternotomy wires are noted. Other findings: None Lines/Tubes: Right thoracotomy tube is present without evidence of pneumothorax. IMPRESSION: Postprocedural changes of mild pulmonary edema small bilateral pleural effusions. Removal of thoracot indra tube and mediastinal drainage tubes [facility], , 10/08/2024 7:26 AM
[2024-10-08] MEDS: METOPROLOL TARTRATE 12.5 MG TAB PO STA (08:10)
[2024-10-08] MEDS: MAGNESIUM HYDROXIDE 2,400 MG/30 ML CUP PO PRN (08:10)
[2024-10-08] MEDS: FUROSEMIDE 10 MG/ML 2 ML VIAL IV ONE (09:34)
--- NOTE | 2024-10-08 09:55 | P.PN ---
Subjective Progress Note Date: 10/08/24 Principal diagnosis: Triple-vessel coronary artery disease with unstable angina, mild left ventricular dysfunction. 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, hypertension, hyperlipidemia POD #3 triple-vessel coronary artery bypass grafting using the in situ left intramammary artery to the left anterior descending artery, left radial artery from the aorta to the diagonal artery, reverse saphenous vein graft from the aorta to the posterior descending artery, exclusion of the left atrial appendage using a 35mm AtriClip, endoscopic harvesting of the left radial artery, endoscopic harvesting of the left greater saphenous vein, graft flow measurement using the [employer] ASstim system, intraoperative transesophageal echocardiogram and epiaortic scanning Postoperative acute blood loss anemia and thrombocytopenia, likely from cardiopulmonary bypass pump and hemodilution Brief episode atrial fibrillation, known and common occurrence after open heart surgery, currently sinus rhythm The patient was seen and examined sitting up in recliner on the cardiac stepdown unit this morning in no acute distress. Currently in atrial fibrillation, hemodynamically stable. Patient has been going in and out of [facility] overnight. Remains on room air with oxygen saturation in the mid 90s. He does complain of expected postsurgical pain which is better controlled today, denies shortness of breath. Able to achieve 1500 mL on his incentive spirometry. Right pleural c hest tube present. Patient did ambulate in the hallway yesterday without difficulty. No other new concerns. Objective - Vital Signs Vital signs: Vital Signs Temp 97.6 F 10/08/24 07:37 Pulse 117 H 10/08/24 07:37 Resp 17 10/08/24 07:37 BP 97/59 10/08/24 08:00 Pulse Ox 99 10/08/24 07:37 FiO2 50 10/05/24 16:00 Intake & Output 10/07/24 10/08/24 10/08/24 18:59 06:59 18:59 Intake Total 282.406 560 Output Total 1870 555 40 Balance -1587.594 5 -40 Weight 97.7 kg Intake: IV 140 20 Invasive Line 3 10 10 Invasive Line 4 10 10 Sodium Chloride 0.9% 1, 120 000 ml @ 30 mls/hr IV . Q24H CRISTINA Rx#:[id number] Intake, IV Titration 22.406 Amount Insulin Regular 100 unit 22.406 In Sodium Chloride 0.9% 100 ml @ Per Protocol IV .Q0M CRISTINA Rx#:[id number] Oral 120 540 Output: Chest Tube Drainage 130 80 40 Chest Tube Left 0 Chest Tube Mediastinal 10 Chest Tube Right 120 80 40 Urine 1740 475 Other: Voiding Method Indwelling Catheter Urinal # Voids 1 ABP, PAP, CO, CI - Last Documented Arterial Blood Pressure 102/47 Pulmonary Artery Pressure 26/13 Cardiac Output 7.4 Cardiac Index 3.5 - Exam CONSTITUTIONAL: Appears comfortable, cooperative, no acute distress RESPIRATORY: Lungs sounds diminished in the bases bilaterally. Respirations even, nonlabored. Currently on room air with oxygen saturation 93%. Able to achieve 1500 mL on incentive spirometry. Strong cough. CARDIOVASCULAR: S1, S2 present. Irregular rate and rhythm, atrial fibrillation on telemetry. Sternum stable. Palpable peripheral pulses bilaterally. No edema present. No calf pain or tenderness noted. Heart hugger in place with patient demonstrating appropriate use. Antiembolism stockings, SCDs present. GASTROINTESTINAL: Abdomen soft, nontender, nondistended. Active bowel sounds present 4 quadrants. Tolerating diet. Positive flatus GENITOURINARY: Continues to void. Output 2215 mL in the last 24 hours INTEGUMENTARY: Skin is warm and dry with evidence of good perfusion. Anterior chest incision well approximated and covered with dry intact dressing. Left radial harvest as well as left lower extremity EVH site well approximated without redness or drainage NEUROLOGIC: Cranial nerves II through XII intact MUSKULOSKELETAL: Able to move all extremities, strength equal bilaterally, gait normal PSYCHIATRIC: Alert and oriented to person place and time, appropriate affect, intact judgment and insight INVASIVE LINES AND TUBES: Right pleural chest tubes present and connected to wall suction, no air leaks present. Right pleural chest tube with 80 mL serosanguineous drainage overnight, 250 mL in the last 24 hours. Atrial epicardial pacemaker wire present, grounded. - Allied health notes Allied health notes reviewed: nursing - Labs CBC & Chem 7: 10/08/24 06:15 10/08/24 06:15 Labs: Abnormal Lab Results - Last 24 Hours (Table) 10/07/24 10/07/24 10/07/24 Range/Units 09:15 11:32 20:33 RBC (4.30-5.90) m/uL Hgb (13.0-17.5) gm/dL Hct (39.0-53.0) % Neutrophils # (1.3-7.7) k/uL Lymphocytes # (1.0-4.8) k/uL Sodium (137-145) mmol/L Glucose (74-99) mg/dL POC Glucose (mg/dL) 147 H 130 H 137 H (70-110) mg/dL Calcium (8.4-10.2) mg/dL Total Protein (6.3-8.2) g/dL Albumin (3.5-5.0) g/dL 10/08/24 10/08/24 10/08/24 Range/Units 06:15 06:15 06:23 RBC 2.44 L (4.30-5.90) m/uL Hgb 7.0 L (13.0-17.5) gm/dL Hct 22.5 L (39.0-53.0) % Neutrophils # 8.3 H (1.3-7.7) k/uL Lymphocytes # 0.8 L (1.0-4.8) k/uL Sodium 134 L (137-145) mmol/L Glucose 118 H (74-99) mg/dL POC Glucose (mg/dL) 139 H (70-110) mg/dL Calcium 7.9 L (8.4-10.2) mg/dL Total Protein 5.3 L (6.3-8.2) g/dL Albumin 3.1 L (3.5-5.0) g/dL - Imaging and Cardiology Chest x-ray: report reviewed, image reviewed Assessment and Plan Assessment: Triple-vessel coronary artery disease with unstable angina, status post three- vessel CABG Mild left ventricular dysfunction, EF 45-50% Postoperative acute blood loss anemia and thrombocytopenia, likely from cardiopulmonary bypass pump and hemodilution Paroxysmal atrial fibrillation, known common occurrence after open heart surgery, status post ligation of the left atrial appendage, currently sinus 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 Will increase beta-ryan therapy as tolerated, increased to 25 mg twice daily today Continue amiodarone for A-fib. No anticoagulation until all lines tubes have been discontinued Encourage incentive spirometry use 10 times every hour while awake. Bronchodilators per pulmonology Will monitor daily labs and x-rays. Electrolyte replacement per protocol. Will give 20 mg IV push Lasix today Increase activity, ambulate as tolerated. PT/OT/cardiac rehab following GI/DVT prophylaxis Pain control per current medication regimen Insulin management per internal medicine. Patient is not diabetic, preoperative hemoglobin A1c 6% Continue right chest tube for another 24 hours, record output Continue to monitor record strict accurate intake and output Daily weights More recommendations to follow as patient progresses
[2024-10-08 11:27] LABS: Glucose,Whole Blood 126 mg/dL (70-110)
--- NOTE | 2024-10-08 12:18 | P.PN ---
Subjective HISTORY OF PRESENT ILLNESS: This is a 64-year-old male who is status post three-vessel CABG. Postop day #3. Patient examined this morning the bedside. Patient is currently in the chair. He denies chest pain or pressure. Denies shortness of breath. He continues to have chest tube present. Patient did go into atrial fibrillation and is still in atrial fibrillation this morning. He did receive amiodarone bolus and his beta-ryan was increased. Blood pressure 94/57. PHYSICAL EXAM: VITAL SIGNS: Reviewed. GENERAL: Well-developed in no acute distress. NECK: Supple. No JVD or thyromegaly LUNGS: Respirations even and unlabored. Lungs essentially clear to auscultation bilaterally. HEART: Regular rate and rhythm. S1 and S2 heard. EXTREMITIES: Normal range of motion. No clubbing or cyanosis. Peripheral pulses intact. No lower extremity edema ASSESSMENT: Coronary artery disease, status post three-vessel CABG Postoperative paroxysmal atrial fibrillation Hypertension Hyperlipidemia Mild ischemic cardiomyopathy, 45 to 50% PLAN: Continue postoperative management per CT surgery Continue telemetry monitoring Patient's beta-ryan increased this morning per CT surgery Increase activity as tolerated Encourage use of incentive spirometer Further recommendations pending patient course Nurse practitioner note has been reviewed by physician. Signing provider agrees with the documented findings, assessment, and plan of care documented by TURNSTILE ATTENDANT as a scribe. Objective - Vital Signs Vital signs: Vital Signs Temp 97.6 F 10/08/24 07:37 Pulse 117 H 10/08/24 07:37 Resp 17 10/08/24 07:37 BP 94/57 10/08/24 09:32 Pulse Ox 99 10/08/24 07:37 FiO2 50 10/05/24 16:00 Intake & Output 10/07/24 10/08/24 10/08/24 18:59 06:59 18:59 Intake Total 282.406 560 Output Total 1870 555 440 Balance -1587.594 5 -440 Weight 97.7 kg Intake: IV 140 20 Invasive Line 3 10 10 Invasive Line 4 10 10 Sodium Chloride 0.9% 1, 120 000 ml @ 30 mls/hr IV . Q24H CRISTINA Rx#:[id number] Intake, IV Titration 22.406 Amount Insulin Regular 100 unit 22.406 In Sodium Chloride 0.9% 100 ml @ Per Protocol IV .Q0M CRISTINA Rx#:[id number] Oral 120 540 Output: Chest Tube Drainage 130 80 40 Chest Tube Left 0 Chest Tube Mediastinal 10 Chest Tube Right 120 80 40 Urine 1740 475 400 Other: Voiding Method Indwelling Catheter Urinal Urinal # Voids 1 ABP, PAP, CO, CI - Last Documented Arterial Blood Pressure 102/47 Pulmonary Artery Pressure 26/13 Cardiac Output 7.4 Cardiac Index 3.5 - Labs CBC & Chem 7: 10/08/24 06:15 10/08/24 06:15 Labs: Abnormal Lab Results - Last 24 Hours (Table) 10/07/24 10/08/24 10/08/24 Range/Units 20:33 06:15 06:15 RBC 2.44 L (4.30-5.90) m/uL Hgb 7.0 L (13.0-17.5) gm/dL Hct 22.5 L (39.0-53.0) % Neutrophils # 8.3 H (1.3-7.7) k/uL Lymphocytes # 0.8 L (1.0-4.8) k/uL Sodium 134 L (137-145) mmol/L Glucose 118 H (74-99) mg/dL POC Glucose (mg/dL) 137 H (70-110) mg/dL Calcium 7.9 L (8.4-10.2) mg/dL Total Protein 5.3 L (6.3-8.2) g/dL Albumin 3.1 L (3.5-5.0) g/dL 10/08/24 10/08/24 Range/Units 06:23 11:26 RBC (4.30-5.90) m/uL Hgb (13.0-17.5) gm/dL Hct (39.0-53.0) % Neutrophils # (1.3-7.7) k/uL Lymphocytes # (1.0-4.8) k/uL Sodium (137-145) mmol/L Glucose (74-99) mg/dL POC Glucose (mg/dL) 139 H 126 H (70-110) mg/dL Calcium (8.4-10.2) mg/dL Total Protein (6.3-8.2) g/dL Albumin (3.5-5.0) g/dL
--- NOTE | 2024-10-08 14:21 | P.PN ---
Subjective Progress Note Date: 10/08/24 Principal diagnosis: Triple-vessel coronary artery bypass grafting using the in situ left intramammary artery to the left anterior descending artery, left radial artery from the aorta to the diagonal artery, reverse saphenous vein graft from the aorta to the posterior descending artery, postoperative day #3 This is a 64-year-old male patient who is being seen preoperatively as the patient is scheduled to undergo coronary bypass surgery on 10/05/2024. The patient presented with chest pain and an abnormal stress test and he underwent a cardiac catheterization the patient was found to have 99% stenosis involving the LAD and a diagonal branch, and dominant RCA with 60 to 70% mid stenosis and totally occluded distal RCA with collaterals from the septals toward the PDA and PLV. This finding consultation was placed to cardiothoracic surgery for revascularization recommendations. Of note he did have a transthoracic echocardiogram completed revealing reduced left ventricular systolic function with EF 45 to 50%, mild to moderate mitral regurgitation and mild tricuspid r egurgitation without pulmonary hypertension, there was no pericardial effusion and the aortic root and proximal ascending aorta more normal size. The patient otherwise doing well. No specific complaints. He is known to have hypertension hyperlipidemia. No respiratory difficulties for now. History of any chest pain for now. The chest x-ray from 10/02/2024 was reviewed and showed no acute cardi opulmonary process. CAT scan of the chest done on 10/01/2024 shows a 2 cm right thyroid nodule. Otherwise, the lungs showed some mild limited and linear scarring and reticulation in the right upper lobe with focal mild linear scarring in the lingula. Otherwise, no other significant abnormalities were noted. Minimal amount of plaques involving the thoracic aorta. The white cell count is at 5.8, he was 12.1 and a platelet count of 411. Normal thyroid function test. Normal UA. proBNP level was 1000. TSH is at 4.12. Good performance status. On 10/04/2024, the patient has no specific complaints and the patient is hemodynamic stable and free of any chest pain. Awaiting surgery for tomorrow. The white cell count of 5.8 with hemoglobin 12.7 and a platelet count of 388. Normal coagulation profile. Normal electrolytes. BUN is 22 with a creatinine of 1.08. LFTs are normal. The patient continues to use incentive spirometer. He is quite active. No cardiac arrhythmias have been noted. Patient was seen today on 10/05/2024, he is status post Triple-vessel coronary artery bypass grafting using the in situ left intramammary artery to the left anterior descending artery, left radial artery from the aorta to the diagonal artery, reverse saphenous vein graft from the aorta to the posterior descending artery, postoperative day #0, patient was seen in the ICU shortly after he arrived, patient is mostly on nitroglycerin drip, 5 mcg/min, patient is intubated and mechanically ventilated, patient is on tidal volume of 500, assist-control rate of 14, FiO2 100%, and PEEP of 5 ABG showed a pO2 of 360 pCO2 37 pH of 7.39. During my evaluation, the patient is awake but seems to be quite anxious, restless, agitated, he was complaining of pain, patient received pain medication, and shortly after we proceeded with trial of weaning with CPAP. Shortly after his weaning parameters were noted, and patient was extubated to a nasal cannula. ABG on CPAP showed a pO2 of 67 pCO2 34 pH of 7.38 and was on 40% FiO2. Cardiac output was 6.5, and his cardiac index was 3.2. Chest x-ray showed postoperative changes, no evidence of active disease. Patient was seen today on 10/06/2024, he is now postoperative day #1. Patient remains in the ICU, he was extubated at 16: 30 5 PM yesterday, he is in sinus rhythm, hemodynamically stable, not requiring any pressors, he is receiving the nitro for vessel spasm prophylaxis. He is on 4 L nasal cannula, does not seem to be in distress. Not achieving much on his incentive spirometry, no more than 500 cc. Chest x-ray is showing mostly bibasilar atelectasis and postoperative changes. Continues to have his right internal jugular Reardan/Cordis, he has mediastinal right and left pleural chest tubes in place, and no leaks noted. WBC count is 6.1 hemoglobin is 7.1, basic metabolic profile is normal renal profile showed a BUN of 18 creatinine 0.81 Patient was seen today on 10/07/2024, he is now postoperative day #2. Patient went into atrial fibrillation last night, he is now on amiodarone as per protocol. He is resting in a recliner, patient is not in any distress hemodynamically stable, on room air with O2 saturation in the 90s, again he had a brief episode last night with atrial fibrillation treated with IV amiodarone. Today asymptomatic achieving about 1000 cc with his intensive spirometry. Continues to have mediastinal and right and left pleural chest tubes present. Chest x-ray showed mostly atelectasis, and postoperative changes. With some pulmonary vascular congestion. Bilateral chest tubes noted on the chest x-ray, no evidence of pneumothorax. WBC count today is 10.1 hemoglobin 7.1 electrolytes showed low sodium of 130 electrolytes otherwise are normal BUN is normal creatinine is normal at 0.98 Seen today on 10/08/2024, he is now postoperative day #3, patient seems to be doing fairly well although his chest x-ray is showing atelectasis and possibly a small right-sided pleural effusion, patient is asymptomatic, on room air, O2 sats 96%. Patient is in and out of atrial fibrillation, but hemodynamically stable, denies shortness of breath denies any nausea vomiting abdominal pain, achieving about 1500 cc on his incentive spirometry. Continues to have right- sided chest tube in place. Patient had a total of 250 cc of fluid drained from the right sided chest tube over the last 24 hours, 80 overnight. Objective - Vital Signs Vital signs: Vital Signs Temp 97.3 F L 10/08/24 12:00 Pulse 74 10/08/24 12:26 Resp 17 10/08/24 12:00 BP 102/63 10/08/24 12:00 Pulse Ox 96 10/08/24 12:15 FiO2 50 10/05/24 16:00 Intake & Output 10/07/24 10/08/24 10/08/24 18:59 06:59 18:59 Intake Total 282.406 560 120 Output Total 1870 555 870 Balance -1587.594 5 -750 Weight 97.7 kg Intake: IV 140 20 Invasive Line 3 10 10 Invasive Line 4 10 10 Sodium Chloride 0.9% 1, 120 000 ml @ 30 mls/hr IV . Q24H [facility]STINA Rx#:[id number] Intake, IV Titration 22.406 Amount Insulin Regular 100 unit 22.406 In Sodium Chloride 0.9% 100 ml @ Per Protocol IV .Q0M CRISTINA Rx#:[id number] Oral 120 540 120 Output: Chest Tube Drainage 130 80 70 Chest Tube Left 0 Chest Tube Mediastinal 10 Chest Tube Right 120 80 70 Urine 1740 475 800 Other: Voiding Method Indwelling Catheter Urinal Urinal # Voids 1 ABP, PAP, CO, CI - Last Documented Arterial Blood Pressure 102/47 Pulmonary Artery Pressure 26/13 Cardiac Output 7.4 Cardiac Index 3.5 - Exam CONSTITUTIONAL: Revealed 64-year-old white male, on room air Head: Atraumatic, normocephalic RESPIRATORY: Diminished breath sound bilaterally no rhonchi no wheezes, right- sided chest tube is noted, no airleak. CARDIOVASCULAR: S1, S2 present. Regular rate and rhythm, sinus rhythm on telemetry. Palpable peripheral pulses bilaterally. No edema present, positive pericardial rub GASTROINTESTINAL: Soft nontender no rebound no guarding. INTEGUMENTARY: Skin is warm, no rashes NEUROLOGIC: Alert and oriented x 3 no gross focal deficit MUSKULOSKELETAL: No deformities and no limitation range of motion PSYCHIATRIC: Normal mood affect and no mental status examination - Labs CBC & Chem 7: 10/08/24 06:15 10/08/24 06:15 Labs: Abnormal Lab Results - Last 24 Hours (Table) 10/07/24 10/08/24 10/08/24 Range/Units 20:33 06:15 06:15 RBC 2.44 L (4.30-5.90) m/uL Hgb 7.0 L (13.0-17.5) gm/dL Hct 22.5 L (39.0-53.0) % Neutrophils # 8.3 H (1.3-7.7) k/uL Lymphocytes # 0.8 L (1.0-4.8) k/uL Sodium 134 L (137-145) mmol/L Glucose 118 H (74-99) mg/dL POC Glucose (mg/dL) 137 H (70-110) mg/dL Calcium 7.9 L (8.4-10.2) mg/dL Total Protein 5.3 L (6.3-8.2) g/dL Albumin 3.1 L (3.5-5.0) g/dL 10/08/24 10/08/24 Range/Units 06:23 11:26 RBC (4.30-5.90) m/uL Hgb (13.0-17.5) gm/dL Hct (39.0-53.0) % Neutrophils # (1.3-7.7) k/uL Lymphocytes # (1.0-4.8) k/uL Sodium (137-145) mmol/L Glucose (74-99) mg/dL POC Glucose (mg/dL) 139 H 126 H (70-110) mg/dL Calcium (8.4-10.2) mg/dL Total Protein (6.3-8.2) g/dL Albumin (3.5-5.0) g/dL Assessment and Plan Assessment: Impression: Triple-vessel coronary artery bypass grafting using the in situ left intrama mmary artery to the left anterior descending artery, left radial artery from the aorta to the diagonal artery, reverse saphenous vein graft from the aorta to the posterior descending artery, postoperative day #3 Mild LV dysfunction with ejection fraction of 45% Moderate mitral regurgitation Benign essential hypertension Dyslipidemia History of thyroid nodule with normal thyroid function test. Postoperative atelectasis, expected Recommendation: Continue medical therapy with aspirin statin Plavix beta- blockers Continue amiodarone for A-fib Continue ambulation and incentive spirometry Chest tube to remain in place for now Continue GI and DVT prophylaxis Continue Toradol and Robaxin Continue insulin for his diabetes Continue to monitor daily x-rays of the chest Intermittently diurese as felt necessary Continue to monitor daily labs Will continue to follow Time with Patient: Less than 30
[2024-10-08 17:09] LABS: Glucose,Whole Blood 121 mg/dL (70-110)
[2024-10-08] MEDS: SODIUM FERRIC GLUCONAT-SUCROSE 125 MG in SODIUM CHLORIDE 0.9% 100 ML IVPB SCH (18:41)
[2024-10-08 20:09] LABS: Glucose,Whole Blood 144 mg/dL (70-110)
[2024-10-08] MEDS: METOPROLOL TARTRATE 25 MG TAB PO SCH (21:47)
[2024-10-08] MEDS: AMIODARONE 360 MG in DEXTROSE 5% IN WATER 200 ML IV ONE (23:55)
--- NOTE | 2024-10-09 00:04 | PN ---
PROGRESS NOTE SUBJECTIVE: A 64-year-old white male, status post bypass. Hemoglobin is 7. He has been up ambulating. He does not want chest tube in, could be removed tomorrow maybe. OBJECTIVE: VITAL SIGNS: Reviewed. CARDIOVASCULAR: S1, S2. LUNGS: Transmitted upper sounds. GI: Soft. HEMATOLOGY: Negative Homans. PLAN: Continue current treatment. Give Venofer for low hemoglobin of 7. PT, OT. His hemoglobin done in the morning. Chest tube and further orders per Dr. Wheeler. Sugars are stable. MMODL / IJN: [id number] /
[2024-10-09 05:52] LABS: Glucose,Whole Blood 120 mg/dL (70-110)
[2024-10-09] MEDS: AMIODARONE 450 MG in DEXTROSE 5% IN WATER 250 ML IV SCH (06:35)
[2024-10-09 06:36] LABS: HGB 7.2 gm/dL (13.0-17.5); Hypochromasia Slight; MCH 29.1 pg (25.0-35.0); MCHC 32.5 g/dL (31.0-37.0); MCV 89.6 fL (80.0-100.0); Platelet Count 232 k/uL (150-450); RBC 2.46 m/uL (4.30-5.90); RDW 14.6 % (11.5-15.5); WBC 9.1 k/uL (3.8-10.6)
[2024-10-09 06:45] LABS: African American GFR (CKD) 81 (>60 ml/min/1.73 sqM); Anion Gap 10 mmol/L; Blood Urea Nitrogen 18 mg/dL (9-20); Calcium 8.1 mg/dL (8.4-10.2); Carbon Dioxide 23 mmol/L (22-30); Chloride 103 mmol/L (98-107); Glucose 122 mg/dL (74-99); Magnesium 2.5 mg/dL (1.6-2.3); Non-African American GFR(CKD) 70 (>60 ml/min/1.73 sqM); Potassium 3.8 mmol/L (3.5-5.1); Sodium 136 mmol/L (137-145)
--- NOTE | 2024-10-09 07:32 | XR ---
EXAM: XR Chest, 2 Views CLINICAL HISTORY: ITS.REASON XR Reason: Postcardiac surgery TECHNIQUE: Frontal and lateral views of the chest. COMPARISON: X-ray dated 10/08/2024. FINDINGS: Lungs: Opacification of the bilateral lung bases. Pleural space: Bilateral pleural effusions. No pneumothorax. Heart: Postsurgical changes are seen to the mediastinum and heart. No cardiomegaly. Mediastinum: Unremarkable. Normal mediastinal contour. Bones/joints: Sternotomy wires are in place. Degenerative changes are seen in the spine and shoulders. No acute fracture. Upper abdomen: Dilated loops of small bowel are seen overlying the upper abdomen. IMPRESSION: Bilateral pleural effusions with adjacent atelectasis and/or pneumonia not excluded.
[2024-10-09] MEDS: FUROSEMIDE 10 MG/ML 2 ML VIAL IV ONE (08:53)
[2024-10-09] MEDS: METOPROLOL TARTRATE 25 MG TAB PO SCH (09:01)
--- NOTE | 2024-10-09 09:48 | P.PN ---
Subjective HISTORY OF PRESENT ILLNESS: This is a 64-year-old male who is status post three-vessel CABG. Postop day #3. Patient examined this morning the bedside. Patient is currently in the chair. He denies chest pain or pressure. Denies shortness of breath. He continues to have chest tube present. Patient did go into atrial fibrillation and is still in atrial fibrillation this morning. He did receive amiodarone bolus and his beta-ryan was increased. Blood pressure 94/57. 10/09/2024 Patient examined this morning. He is sitting up in the chair. He denies chest pain or pressure. He denies shortness of breath. He continues to have [address] He is currently on IV amiodarone per CT surgery. Bedside telemetry reveals sinus mechanism with PACs. PHYSICAL EXAM: VITAL SIGNS: Reviewed. GENERAL: Well-developed in no acute distress. NECK: Supple. No JVD or thyromegaly LUNGS: Respirations even and unlabored. Lungs essentially clear to auscultation bilaterally. HEART: Regular rate and rhythm. S1 and S2 heard. EXTREMITIES: Normal range of motion. No clubbing or cyanosis. Peripheral pulses intact. No lower extremity edema ASSESSMENT: Coronary artery disease, status post three-vessel CABG Postoperative paroxysmal atrial fibrillation Hypertension Hyperlipidemia Mild ischemic cardiomyopathy, 45 to 50% PLAN: Continue postoperative management per CT surgery Continue telemetry monitoring Increase activity as tolerated Encourage use of incentive spirometer Further recommendations pending patient course Nurse practitioner note has been reviewed by physician. Signing provider agrees with the documented findings, assessment, and plan of care documented by SCREED OPERATOR as a scribe. Objective - Vital Signs Vital signs: Vital Signs Temp 98.1 F 10/09/24 03:06 Pulse 90 10/09/24 08:30 Resp 17 10/09/24 03:06 BP 132/76 10/09/24 03:06 Pulse Ox 100 10/09/24 08:20 FiO2 50 10/05/24 16:00 Intake & Output 10/08/24 10/09/24 10/09/24 18:59 06:59 18:59 Intake Total 120 210 118 Output Total 1890 1020 400 Balance -1440 -810 -282 Weight 96.3 kg Intake: IV 10 Invasive Line 8 10 Intake, IV Titration 200 Amount Dextrose 5% in Water 100 200 ml @ 618 mls/hr IV .Q10M PRN with Amiodarone 150 mg Rx#:[id number] Oral 120 118 Output: Chest Tube Drainage 90 70 Chest Tube Right 90 70 Urine 1800 950 400 Other: Voiding Method Urinal Urinal # Voids 1 # Bowel Movements 2 ABP, PAP, CO, CI - Last Documented Arterial Blood Pressure 102/47 Pulmonary Artery Pressure 26/13 Cardiac Output 7.4 Cardiac Index 3.5 - Labs CBC & Chem 7: 10/09/24 05:40 10/09/24 05:40 Labs: Abnormal Lab Results - Last 24 Hours (Table) 10/08/24 10/08/24 10/08/24 Range/Units 11:26 17:06 20:08 RBC (4.30-5.90) m/uL Hgb (13.0-17.5) gm/dL Hct (39.0-53.0) % Sodium (137-145) mmol/L Glucose (74-99) mg/dL POC Glucose (mg/dL) 126 H 121 H 144 H (70-110) mg/dL Calcium (8.4-10.2) mg/dL Magnesium (1.6-2.3) mg/dL 10/09/24 10/09/24 10/09/24 Range/Units 05:40 05:40 05:51 RBC 2.46 L (4.30-5.90) m/uL Hgb 7.2 L (13.0-17.5) gm/dL Hct 22.0 L (39.0-53.0) % Sodium 136 L (137-145) mmol/L Glucose 122 H (74-99) mg/dL POC Glucose (mg/dL) 120 H (70-110) mg/dL Calcium 8.1 L (8.4-10.2) mg/dL Magnesium 2.5 H (1.6-2.3) mg/dL
--- NOTE | 2024-10-09 10:12 | P.PN ---
Subjective Progress Note Date: 10/09/24 Principal diagnosis: Triple-vessel coronary artery disease with unstable angina, mild left ventricular dysfunction. Medical history significant for evidence of old inferior wall myocardial infarction, hypertension, hyperlipidemia. POD #4 triple-vessel coronary artery bypass grafting using the in situ left intramammary artery to the left anterior descending artery, left radial artery from the aorta to the diagonal artery, reverse saphenous vein graft from the aorta to the posterior descending artery, exclusion of the left atrial appendage using a 35mm AtriClip, endoscopic harvesting of the left radial artery, endoscopic harvesting of the left greater saphenous vein, graft flow measurement using the [employer] system, intraoperative transesophageal echocardiogram and epiaortic scanning. Postoperative acute blood loss anemia and thrombocytopenia, likely from cardiopulmonary bypass pump and hemodilution. Paroxysmal atrial fibrillation, a known common occurrence after open heart surgery, currently sinus rhythm. The patient was seen and examined in follow-up today October 09, 2024 at his bedside on the third floor cardiac stepdown unit. He is currently sitting up to the bedside chair, is awake, alert, oriented x 3 and is in no acute apparent distress. Denies any complaints of pain or shortness of breath at this time. He states he feels better on a daily basis. He reports he has been ambulating in the hallway with standby assistance from nursing and therapy staff and tolerating well. Oxygen saturations are 96% on room air and he is achieving 1850 mL on his incentive spirometry. Remote telemetry is showing normal sinus rhythm with occasional PACs heart rate 86 bpm. According to his nurse he did receive 2 boluses of amiodarone 150 mg IV piggyback throughout the night for episodes of atrial fibrillation. Right pleural chest tube remains in place to low continuous wall suction -20 cm H2O. No airleak is present. Draining thin serosanguineous drainage with 100 mL output in the last 24 hours. He continues to void without difficulty with urine output 950 mL output in the last 8 hours. Laboratory and chest x-ray results reviewed. He remains hemodynamically stable and is currently on no inotropic or pressor support. Objective - Vital Signs Vital signs: Vital Signs Temp 98.1 F 10/09/24 03:06 Pulse 90 10/09/24 08:30 Resp 17 10/09/24 03:06 BP 132/76 10/09/24 03:06 Pulse Ox 100 10/09/24 08:20 FiO2 50 10/05/24 16:00 Intake & Output 10/08/24 10/09/24 10/09/24 18:59 06:59 18:59 Intake Total 120 210 Output Total 1890 1020 Balance -1770 -810 Weight 96.3 kg Intake: IV 10 Invasive Line 8 10 Intake, IV Titration 200 Amount Dextrose 5% in Water 100 200 ml @ 618 mls/hr IV .Q10M PRN with Amiodarone 150 mg Rx#:[id number] Oral 120 Output: Chest Tube Drainage 90 70 Chest Tube Right 90 70 Urine 1800 950 Other: Voiding Method Urinal Urinal # Voids 1 # Bowel Movements 2 ABP, PAP, CO, CI - Last Documented Arterial Blood Pressure 102/47 Pulmonary Artery Pressure 26/13 Cardiac Output 7.4 Cardiac Index 3.5 - Exam CONSTITUTIONAL: Sitting up to the bedside chair on the third floor cardiac stepdown unit, appears comfortable, cooperative, no apparent acute distress. HEENT: Neck is supple, no JVD, no lymphadenopathy. RESPIRATORY: Lungs sounds essentially clear throughout, diminished to his bilateral bases. Respirations are symmetrical and nonlabored. Currently on room air with oxygen saturations 96%. Able to achieve 1850 mL on his incentive spirometry. Strong cough. CARDIOVASCULAR: Regular rhythm and rate. S1 and S2 present, negative for S3, gallop or murmur. Sternum is stable. Palpable peripheral pulses bilaterally. No calf pain or tenderness noted. Heart hugger in place with patient demonstrating appropriate use. Knee-high SOPHIE hose and sequential compression devices in place to his bilateral lower extremities. GASTROINTESTINAL: Abdomen soft, nontender, nondistended. Active bowel sounds present 4 quadrants. Tolerating diet. Passing flatus. No guarding or rigidity. GENITOURINARY: Continues to void. Urine output 950 mL in the last 8 hours. INTEGUMENTARY: Skin is warm and dry with no evidence of clubbing or cyanosis. Midline sternal incision clean dry and well approximated, covered with dry intact dressing. Left lower extremity EVH sites well approximated without redness or drainage. Left arm radial artery harvest sites clean, dry and approximated. No drainage or redness is present. NEUROLOGIC: Cranial nerves II through XII intact. No focal deficits. MUSKULOSKELETAL: Able to move all extremities, strength equal bilaterally, generalized weakness. PSYCHIATRIC: Alert and oriented to person place and time, appropriate affect, intact judgment and insight. INVASIVE LINES AND TUBES: Right pleural chest tube present and connected to low continuous wall suction, no air leak present. Right pleural chest tube with 100 mL output in the last 24 hours. Atrial epicardial pacemaker wires in place and grounded. - Allied health notes Allied health notes reviewed: nursing - Labs CBC & Chem 7: 10/09/24 05:40 10/09/24 05:40 Labs: Abnormal Lab Results - Last 24 Hours (Table) 10/08/24 10/08/24 10/08/24 Range/Units 11:26 17:06 20:08 RBC (4.30-5.90) m/uL Hgb (13.0-17.5) gm/dL Hct (39.0-53.0) % Sodium (137-145) mmol/L Glucose (74-99) mg/dL POC Glucose (mg/dL) 126 H 121 H 144 H (70-110) mg/dL Calcium (8.4-10.2) mg/dL Magnesium (1.6-2.3) mg/dL 10/09/24 10/09/24 10/09/24 Range/Units 05:40 05:40 05:51 RBC 2.46 L (4.30-5.90) m/uL Hgb 7.2 L (13.0-17.5) gm/dL Hct 22.0 L (39.0-53.0) % Sodium 136 L (137-145) mmol/L Glucose 122 H (74-99) mg/dL POC Glucose (mg/dL) 120 H (70-110) mg/dL Calcium 8.1 L (8.4-10.2) mg/dL Magnesium 2.5 H (1.6-2.3) mg/dL - Imaging and Cardiology Chest x-ray: report reviewed, image reviewed Assessment and Plan Assessment: Triple-vessel coronary artery disease with unstable angina, status post three- vessel CABG Mild left ventricular dysfunction, EF 45-50% Postoperative acute blood loss anemia and thrombocytopenia, likely from cardiopulmonary bypass pump and hemodilution Paroxysmal atrial fibrillation, a known common occurrence after open heart surgery, status post ligation of the left atrial appendage, currently normal sinus rhythm 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 Hypertension Hyperlipidemia, cholesterol 210, LDL 145 Plan: Continue to maximize medical therapy with aspirin, statin, Plavix, and beta-blo cker. Will increase metoprolol tartrate to 25 mg p.o. every 8 hours with hold parameters. Continue amiodarone for atrial fibrillation. No anticoagulation until all lines tubes have been discontinued. Encourage incentive spirometry use 10 times every hour while awake. Bronchodilators per pulmonology. Will monitor daily labs and chest x-rays. Electrolyte replacement per protocol. Will give 20 mg IV push Lasix today x 1. Increase activity, ambulate as tolerated. PT/OT/cardiac rehab following. GI/DVT prophylaxis. Pain control per current medication regimen. Insulin management per internal medicine. Patient is not diabetic, preoperative hemoglobin A1c 6%. We will discontinue his right pleural chest tube today. Continue to monitor record strict accurate intake and output. Daily weights. Shower daily starting tomorrow October 10, 2024. Discharge planning is in place, anticipate discharge home with home health care in the next 48 hours. More recommendations to follow based on patient's clinical course. Time with Patient: Greater than 30
[2024-10-09 11:46] LABS: Glucose,Whole Blood 129 mg/dL (70-110)
--- NOTE | 2024-10-09 14:47 | P.PN ---
Subjective Progress Note Date: 10/09/24 Principal diagnosis: Triple-vessel coronary artery bypass grafting using the in situ left intramammary artery to the left anterior descending artery, left radial artery from the aorta to the diagonal artery, reverse saphenous vein graft from the aorta to the posterior descending artery, postoperative day # 4 This is a 64-year-old male patient who is being seen preoperatively as the patient is scheduled to undergo coronary bypass surgery on 10/05/2024. The patient presented with chest pain and an abnormal stress test and he underwent a cardiac catheterization the patient was found to have 99% stenosis involving the LAD and a diagonal branch, and dominant RCA with 60 to 70% mid stenosis and totally occluded distal RCA with collaterals from the septals toward the PDA and PLV. This finding consultation was placed to cardiothoracic surgery for revascularization recommendations. Of note he did have a transthoracic echocardiogram completed revealing reduced left ventricular systolic function with EF 45 to 50%, mild to moderate mitral regurgitation and mild tricuspid regurgitation without pulmonary hypertension, there was no pericardial effusion and the aortic root and proximal ascending aorta more normal size. The patient otherwise doing well. No specific complaints. He is known to have hypertension hyperlipidemia. No respiratory difficulties for now. History of any chest pain for now. The chest x-ray from 10/02/2024 was reviewed and showed no acute card iopulmonary process. CAT scan of the chest done on 10/01/2024 shows a 2 cm right thyroid nodule. Otherwise, the lungs showed some mild limited and linear scarring and reticulation in the right upper lobe with focal mild linear scarring in the lingula. Otherwise, no other significant abnormalities were noted. Minimal amount of plaques involving the thoracic aorta. The white cell count is at 5.8, he was 12.1 and a platelet count of 411. Normal thyroid function test. Normal UA. proBNP level was 1000. TSH is at 4.12. Good performance status. On 10/04/2024, the patient has no specific complaints and the patient is hemodynamic stable and free of any chest pain. Awaiting surgery for tomorrow. The white cell count of 5.8 with hemoglobin 12.7 and a platelet count of 388. Normal coagulation profile. Normal electrolytes. BUN is 22 with a creatinine of 1.08. LFTs are normal. The patient continues to use incentive spirometer. He is quite active. No cardiac arrhythmias have been noted. Patient was seen today on 10/05/2024, he is status post Triple-vessel coronary artery bypass grafting using the in situ left intramammary artery to the left anterior descending artery, left radial artery from the aorta to the diagonal artery, reverse saphenous vein graft from the aorta to the posterior descending artery, postoperative day #0, patient was seen in the ICU shortly after he arriv ed, patient is mostly on nitroglycerin drip, 5 mcg/min, patient is intubated and mechanically ventilated, patient is on tidal volume of 500, assist-control rate of 14, FiO2 100%, and PEEP of 5 ABG showed a pO2 of 360 pCO2 37 pH of 7.39. During my evaluation, the patient is awake but seems to be quite anxious, restless, agitated, he was complaining of pain, patient received pain medication, and shortly after we proceeded with trial of weaning with CPAP. Shortly after his weaning parameters were noted, and patient was extubated to a nasal cannula. ABG on CPAP showed a pO2 of 67 pCO2 34 pH of 7.38 and was on 40% FiO2. Cardiac output was 6.5, and his cardiac index was 3.2. Chest x-ray showe d postoperative changes, no evidence of active disease. Patient was seen today on 10/06/2024, he is now postoperative day #1. Patient remains in the ICU, he was extubated at 16: 30 5 PM yesterday, he is in sinus rhythm, hemodynamically stable, not requiring any pressors, he is receiving the nitro for vessel spasm prophylaxis. He is on 4 L nasal cannula, does not seem to be in distress. Not achieving much on his incentive spirometry, no more than 500 cc. Chest x-ray is showing mostly bibasilar atelectasis and postoperative changes. Continues to have his right internal jugular [place]is, he has mediastinal right and left pleural chest tubes in place, and no leaks noted. WBC count is 6.1 hemoglobin is 7.1, basic metabolic profile is normal renal profile showed a BUN of 18 creatinine 0.81 Patient was seen today on 10/07/2024, he is now postoperative day #2. Patient went into atrial fibrillation last night, he is now on amiodarone as per protocol. He is resting in a recliner, patient is not in any distress hemodynamically stable, on room air with O2 saturation in the 90s, again he had a brief episode last night with atrial fibrillation treated with IV amiodarone. Today asymptomatic achieving about 1000 cc with his intensive spirometry. Continues to have mediastinal and right and left pleural chest tubes present. Chest x-ray showed mostly atelectasis, and postoperative changes. With some pulmonary vascular congestion. Bilateral chest tubes noted on the chest x-ray, no evidence of pneumothorax. WBC count today is 10.1 hemoglobin 7.1 electrolytes showed low sodium of 130 electrolytes otherwise are normal BUN is normal creatinine is normal at 0.98 Seen today on 10/08/2024, he is now postoperative day #3, patient seems to be doing fairly well although his chest x-ray is showing atelectasis and possibly a small right-sided pleural effusion, patient is asymptomatic, on room air, O2 sats 96%. Patient is in and out of atrial fibrillation, but hemodynamically stable, denies shortness of breath denies any nausea vomiting abdominal pain, achieving about 1500 cc on his incentive spirometry. Continues to have right- sided chest tube in place. Patient had a total of 250 cc of fluid drained from the right sided chest tube over the last 24 hours, 80 overnight. Seen today on 10/09/2024, patient is now postoperative day #4. Patient has been experiencing paroxysmal atrial fibrillation, his right-sided chest tube was just removed by thoracic surgery. Patient is not in any distress, he is on room air, asymptomatic. Pain seems to be fairly under control. Patient is achieving over 1800 cc on his incentive spirometry, he has been ambulating. He did receive 2 boluses of amiodarone throughout the night because of his atrial fibrillation. Chest x-ray was reviewed mostly postoperative changes, and minimal bibasilar atelectasis, expected. Patient is not requiring any inotropes or any pressors he is hemodynamically stable. Objective - Vital Signs Vital signs: Vital Signs Temp 98.0 F 10/09/24 11:15 Pulse 84 10/09/24 11:50 Resp 19 10/09/24 11:15 BP 100/58 10/09/24 11:15 Pulse Ox 95 10/09/24 11:15 FiO2 50 10/05/24 16:00 Intake & Output 10/08/24 10/09/24 10/09/24 18:59 06:59 18:59 Intake Total 120 210 118 Output Total 1890 1020 780 Balance -1770 -810 -662 Weight 96.3 kg Intake: IV 10 Invasive Line 8 10 Intake, IV Titration 200 Amount Dextrose 5% in Water 100 200 ml @ 618 mls/hr IV .Q10M PRN with Amiodarone 150 mg Rx#:[id number] Oral 120 118 Output: Chest Tube Drainage 90 70 Chest Tube Right 90 70 Urine 1800 950 780 Other: Voiding Method Urinal Urinal Urinal # Voids 1 1 # Bowel Movements 2 ABP, PAP, CO, CI - Last Documented Arterial Blood Pressure 102/47 Pulmonary Artery Pressure 26/13 Cardiac Output 7.4 Cardiac Index 3.5 - Exam CONSTITUTIONAL: Revealed 64-year-old white male, on room air Head: Atraumatic, normocephalic RESPIRATORY: Diminished breath sound bilaterally no rhonchi no wheezes, right- sided chest tube i was just removed just before I saw the patient. CARDIOVASCULAR: S1, S2 present. Regular rate and rhythm, sinus rhythm on telemetry. Palpable peripheral pulses bilaterally. No edema present, positive pericardial rub GASTROINTESTINAL: Soft nontender no rebound no guarding. INTEGUMENTARY: Skin is warm, no rashes NEUROLOGIC: Alert and oriented x 3 no gross focal deficit MUSKULOSKELETAL: No deformities and no limitation range of motion PSYCHIATRIC: Normal mood affect and no mental status examination - Labs CBC & Chem 7: 10/09/24 05:40 10/09/24 05:40 Labs: Abnormal Lab Results - Last 24 Hours (Table) 10/08/24 10/08/24 10/09/24 Range/Units 17:06 20:08 05:40 RBC 2.46 L (4.30-5.90) m/uL Hgb 7.2 L (13.0-17.5) gm/dL Hct 22.0 L (39.0-53.0) % Sodium (137-145) mmol/L Glucose (74-99) mg/dL POC Glucose (mg/dL) 121 H 144 H (70-110) mg/dL Calcium (8.4-10.2) mg/dL Magnesium (1.6-2.3) mg/dL 10/09/24 10/09/24 10/09/24 Range/Units 05:40 05:51 11:44 RBC (4.30-5.90) m/uL Hgb (13.0-17.5) gm/dL Hct (39.0-53.0) % Sodium 136 L (137-145) mmol/L Glucose 122 H (74-99) mg/dL POC Glucose (mg/dL) 120 H 129 H (70-110) mg/dL Calcium 8.1 L (8.4-10.2) mg/dL Magnesium 2.5 H (1.6-2.3) mg/dL Assessment and Plan Assessment: Impression: Triple-vessel coronary artery bypass grafting using the in situ left intramamma ry artery to the left anterior descending artery, left radial artery from the aorta to the diagonal artery, reverse saphenous vein graft from the aorta to the posterior descending artery, postoperative day #4 Mild LV dysfunction with ejection fraction of 45% Moderate mitral regurgitation Benign essential hypertension Dyslipidemia History of thyroid nodule with normal thyroid function test. Postoperative atelectasis, expected Paroxysmal atrial fibrillation, expected Recommendation: Continue medical therapy with aspirin statin Plavix beta- blockers Continue amiodarone for A-fib Continue ambulation and incentive spirometry Chest tube was removed today Continue GI and DVT prophylaxis Continue Toradol for pain. Continue insulin for his diabetes Continue to monitor daily x-rays of the chest, chest x-ray from today was reviewed Intermittently diurese as felt necessary Continue to monitor daily labs Will continue to follow Time with Patient: Less than 30
[2024-10-09 16:29] LABS: Glucose,Whole Blood 127 mg/dL (70-110)
[2024-10-09 20:40] LABS: Glucose,Whole Blood 138 mg/dL (70-110)
[2024-10-10] MEDS: bisacodyL 10 MG SUPP RECTAL PRN (00:55)
--- NOTE | 2024-10-10 03:18 | PN ---
PROGRESS NOTE A 64-year-old white male, atypical chest pain, status post bypass surgery. Sugars are better. He said his chest tube came out. Hemoglobin is up to 7.2 infusions. He has been up ambulating. Waiting for Dr. Wheeler to clear medically. He appears stable at this time. Hemoglobin is improving. Discontinue iron IV while he is here and then go to oral iron on outpatient. He notes his hemoglobin stabilizes, he is good to go. His sugars are better. PROGNOSIS: Guarded. MMODL / IJN: [id number] /
[2024-10-10 06:22] LABS: Glucose,Whole Blood 127 mg/dL (70-110)
--- NOTE | 2024-10-10 07:02 | XR ---
EXAMINATION TYPE: XR chest 2V DATE OF EXAM: 10/10/2024 CLINICAL INDICATION: Male, 64 years old with history of Postop CABG, TECHNIQUE: Frontal and lateral views of the chest are obtained. COMPARISON: Chest x-ray 1 day earlier and earlier studies FINDINGS: Overlying sternal wires and mediastinal clips are redemonstrated. Left atrial appendage cl ip is redemonstrated. There is persistent cardiomegaly with small left pleural effusion and bibasilar opacities favoring at electasis. Osseous structures are intact. IMPRESSION: Persistent cardiomegaly with small left pleural effusion and left basilar opacity favorin g atelectasis. [facility], , 10/10/2024 6:59 AM
[2024-10-10 07:19] LABS: HCT 22.7 % (39.0-53.0); HGB 7.1 gm/dL (13.0-17.5); Hypochromasia Slight; MCH 28.5 pg (25.0-35.0); MCHC 31.4 g/dL (31.0-37.0); MCV 90.8 fL (80.0-100.0); Platelet Count 307 k/uL (150-450); WBC 6.5 k/uL (3.8-10.6)
[2024-10-10 07:50] LABS: African American GFR (CKD) 77 (>60 ml/min/1.73 sqM); Anion Gap 8 mmol/L; Blood Urea Nitrogen 21 mg/dL (9-20); Calcium 8.3 mg/dL (8.4-10.2); Carbon Dioxide 25 mmol/L (22-30); Chloride 103 mmol/L (98-107); Glucose 100 mg/dL (74-99); Non-African American GFR(CKD) 66 (>60 ml/min/1.73 sqM); Potassium 3.8 mmol/L (3.5-5.1); Sodium 136 mmol/L (137-145)
[2024-10-10] MEDS: POTASSIUM CHLORIDE ER 20 MEQ TAB.ER PO SCH (08:44)
--- NOTE | 2024-10-10 08:59 | P.PN ---
Subjective Progress Note Date: 10/10/24 Principal diagnosis: Triple-vessel coronary artery disease with unstable angina, mild left ventricular dysfunction. Medical history significant for evidence of old inferior wall myocardial infarction, hypertension, hyperlipidemia. POD #5 triple-vessel coronary artery bypass grafting using the in situ left intramammary artery to the left anterior descending artery, left radial artery from the aorta to the diagonal artery, reverse saphenous vein graft from the aorta to the posterior descending artery, exclusion of the left atrial appendage using a 35mm AtriClip, endoscopic harvesting of the left radial artery, endoscopic harvesting of the left greater saphenous vein, graft flow measurement using the [employer] system, intraoperative transesophageal echocardiogram and epiaortic scanning. Postoperative acute blood loss anemia and thrombocytopenia, likely from cardiopulmonary bypass pump and hemodilution. Paroxysmal atrial fibrillation, a known common occurrence after open heart surgery, currently sinus rhythm. The patient was seen and examined in follow-up today October 10, 2024 at his bedside on the third floor cardiac stepdown unit. He is currently sitting up to the bedside chair, is awake, alert, oriented x 3 and is in no acute apparent distress. He denies any complaints of shortness of breath or pain at this time. He states he has been up ambulating in the cardiac stepdown unit hallway with standby assistance from nursing and therapy staff and tolerating well. Oxygen saturations are 95% on room air and he is achieving 1250 to 1500 mL on his incentive spirometry with encouragement. He reports he did have a bowel movement this a.m. He remains hemodynamically stable and is currently on no inotropic or pressor support. Remote telemetry is showing normal sinus rhythm heart rate 75 bpm, it was reported that the patient did have an episode of paro xysmal atrial fibrillation throughout the night with heart rate in the 120s to 130s. He remains on amiodarone and metoprolol tartrate. Chest x-ray and laboratory results reviewed. Objective - Vital Signs Vital signs: Vital Signs Temp 98.0 F 10/10/24 03:37 Pulse 79 10/10/24 03:37 Resp 19 10/10/24 03:37 BP 98/59 10/10/24 03:37 Pulse Ox 94 L 10/10/24 03:37 FiO2 50 10/05/24 16:00 Intake & Output 03/21/25 03/21/25 03/22/25 06:59 18:59 06:59 Intake Total 210 236 Output Total 1020 1080 100 Balance -810 -844 -100 Weight 96.3 kg 94.3 kg Intake: IV 10 Invasive Line 8 10 Intake, IV Titration 200 Amount Dextrose 5% in Water 100 200 ml @ 618 mls/hr IV .Q10M PRN with Amiodarone 150 mg Rx#:[id number] Oral 236 Output: Chest Tube Drainage 70 Chest Tube Right 70 Urine 950 1080 100 Other: Voiding Method Urinal Urinal Urinal # Voids 1 1 ABP, PAP, CO, CI - Last Documented Arterial Blood Pressure 102/47 Pulmonary Artery Pressure 26/13 Cardiac Output 7.4 Cardiac Index 3.5 - Exam CONSTITUTIONAL: Sitting up to the bedside chair on the third floor cardiac stepdown unit, appears comfortable, cooperative, no apparent acute distress. HEENT: Neck is supple, no JVD, no lymphadenopathy. RESPIRATORY: Lungs sounds essentially clear throughout, diminished to his bilateral bases. Respirations are symmetrical and nonlabored. Currently on room air with oxygen saturations 95%. Able to achieve 2000 mL on his incentive spirometry. Strong cough. CARDIOVASCULAR: Regular rhythm and rate. S1 and S2 present, negative for S3, gallop or murmur. Sternum is stable. Palpable peripheral pulses bilaterally. No calf pain or tenderness noted. Heart hugger in place with patient demonstrating appropriate use. Knee-high SOPHIE hose and sequential compression devices in place to his bilateral lower extremities. GASTROINTESTINAL: Abdomen soft, nontender, nondistended. Active bowel sounds present 4 quadrants. Tolerating diet. Passing flatus. No guarding or rigidity. Bowel movement this a.m. GENITOURINARY: Continues to void. INTEGUMENTARY: Skin is warm and dry with no evidence of clubbing or cyanosis. Midline sternal incision clean dry and well approximated, covered with dry intact dressing. Left lower extremity EVH sites well approximated without redness or drainage. Left arm radial artery harvest sites clean, dry and approximated. No drainage or redness is present. NEUROLOGIC: Cranial nerves II through XII intact. No focal deficits. MUSKULOSKELETAL: Able to move all extremities, strength equal bilaterally, generalized weakness. PSYCHIATRIC: Alert and oriented to person place and time, appropriate affect, intact judgment and insight. INVASIVE LINES AND TUBES: Atrial epicardial pacemaker wires in place and grounded. - Allied health notes Allied health notes reviewed: nursing - Labs CBC & Chem 7: 10/10/24 05:52 10/10/24 05:52 Labs: Abnormal Lab Results - Last 24 Hours (Table) 10/09/24 10/09/24 10/09/24 Range/Units 05:40 11:44 16:26 Sodium 136 L (137-145) mmol/L Glucose 122 H (74-99) mg/dL POC Glucose (mg/dL) 129 H 127 H (70-110) mg/dL Calcium 8.1 L (8.4-10.2) mg/dL Magnesium 2.5 H (1.6-2.3) mg/dL 10/09/24 10/10/24 Range/Units 20:16 05:58 Sodium (137-145) mmol/L Glucose (74-99) mg/dL POC Glucose (mg/dL) 138 H 127 H (70-110) mg/dL Calcium (8.4-10.2) mg/dL Magnesium (1.6-2.3) mg/dL - Imaging and Cardiology Chest x-ray: report reviewed, image reviewed Assessment and Plan Assessment: Triple-vessel coronary artery disease with unstable angina, status post three- vessel CABG Mild left ventricular dysfunction, EF 45-50% Postoperative acute blood loss anemia and thrombocytopenia, likely from cardiopulmonary bypass pump and hemodilution Paroxysmal atrial fibrillation, a known common occurrence after open heart surge ry, status post ligation of the left atrial appendage, currently normal sinus rhythm 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 Hypertension Hyperlipidemia, cholesterol 210, LDL 145 Plan: Continue to maximize medical therapy with aspirin, statin, Plavix, and beta- ryan. Will increase metoprolol tartrate as tolerated. Continue amiodarone for atrial fibrillation. Eliquis 5 mg p.o. twice daily has been initiated for anticoagulation. Encourage incentive spirometry use 10 times every hour while awake. Bronchodilators per pulmonology. Will monitor daily labs and chest x-rays. Electrolyte replacement per protocol. Increase activity, ambulate as tolerated. PT/OT/cardiac rehab following. GI/DVT prophylaxis. Pain control per current medication regimen. Insulin management per internal medicine. Patient is not diabetic, preoperative hemoglobin A1c 6%. We will remove his atrial epicardial pacemaker wires today, bedrest for 1 hour post pacemaker wire removal. Continue to monitor record strict accurate intake and output. Daily weights. Shower daily starting today October 10, 2024. Discharge planning is in place, anticipate discharge home with home health care in the next 24 hours. More recommendations to follow based on patient's clinical course. Time with Patient: Greater than 30
[2024-10-10] MEDS: METOPROLOL TARTRATE 25 MG TAB PO STA (10:50)
[2024-10-10 12:02] LABS: Glucose,Whole Blood 134 mg/dL (70-110)
--- NOTE | 2024-10-10 12:32 | P.PN ---
Subjective Progress Note Date: 10/10/24 Principal diagnosis: Triple-vessel coronary artery bypass grafting using the in situ left intramammary artery to the left anterior descending artery, left radial artery from the aorta to the diagonal artery, reverse saphenous vein graft from the aorta to the posterior descending artery, postoperative day # 5 This is a 64-year-old male patient who is being seen preoperatively as the patient is scheduled to undergo coronary bypass surgery on 10/05/2024. The patient presented with chest pain and an abnormal stress test and he underwent a cardiac catheterization the patient was found to have 99% stenosis involving the LAD and a diagonal branch, and dominant RCA with 60 to 70% mid stenosis and totally occluded distal RCA with collaterals from the septals toward the PDA and PLV. This finding consultation was placed to cardiothoracic surgery for revascularization recommendations. Of note he did have a transthoracic echocardiogram completed revealing reduced left ventricular systolic function with EF 45 to 50%, mild to moderate mitral regurgitation and mild tricuspid regurgitation without pulmonary hypertension, there was no pericardial effusion and the aortic root and proximal ascending aorta more normal size. The patient otherwise doing well. No specific complaints. He is known to have hypertension hyperlipidemia. No respiratory difficulties for now. History of any chest pain for now. The chest x-ray from 10/02/2024 was reviewed and showed no acute card iopulmonary process. CAT scan of the chest done on 10/01/2024 shows a 2 cm right thyroid nodule. Otherwise, the lungs showed some mild limited and linear scarring and reticulation in the right upper lobe with focal mild linear scarring in the lingula. Otherwise, no other significant abnormalities were noted. Minimal amount of plaques involving the thoracic aorta. The white cell count is at 5.8, he was 12.1 and a platelet count of 411. Normal thyroid function test. Normal UA. proBNP level was 1000. TSH is at 4.12. Good performance status. On 10/04/2024, the patient has no specific complaints and the patient is hemodynamic stable and free of any chest pain. Awaiting surgery for tomorrow. The white cell count of 5.8 with hemoglobin 12.7 and a platelet count of 388. Normal coagulation profile. Normal electrolytes. BUN is 22 with a creatinine of 1.08. LFTs are normal. The patient continues to use incentive spirometer. He is quite active. No cardiac arrhythmias have been noted. Patient was seen today on 10/05/2024, he is status post Triple-vessel coronary artery bypass grafting using the in situ left intramammary artery to the left anterior descending artery, left radial artery from the aorta to the diagonal artery, reverse saphenous vein graft from the aorta to the posterior descending artery, postoperative day #0, patient was seen in the ICU shortly after he arriv ed, patient is mostly on nitroglycerin drip, 5 mcg/min, patient is intubated and mechanically ventilated, patient is on tidal volume of 500, assist-control rate of 14, FiO2 100%, and PEEP of 5 ABG showed a pO2 of 360 pCO2 37 pH of 7.39. During my evaluation, the patient is awake but seems to be quite anxious, restless, agitated, he was complaining of pain, patient received pain medication, and shortly after we proceeded with trial of weaning with CPAP. Shortly after his weaning parameters were noted, and patient was extubated to a nasal cannula. ABG on CPAP showed a pO2 of 67 pCO2 34 pH of 7.38 and was on 40% FiO2. Cardiac output was 6.5, and his cardiac index was 3.2. Chest x-ray showe d postoperative changes, no evidence of active disease. Patient was seen today on 10/06/2024, he is now postoperative day #1. Patient remains in the ICU, he was extubated at 16: 30 5 PM yesterday, he is in sinus rhythm, hemodynamically stable, not requiring any pressors, he is receiving the nitro for vessel spasm prophylaxis. He is on 4 L nasal cannula, does not seem to be in distress. Not achieving much on his incentive spirometry, no more than 500 cc. Chest x-ray is showing mostly bibasilar atelectasis and postoperative changes. Continues to have his right internal jugular Ang[place]/Cordis, he has mediastinal right and left pleural chest tubes in place, and no leaks noted. WBC count is 6.1 hemoglobin is 7.1, basic metabolic profile is normal renal profile showed a BUN of 18 creatinine 0.81 Patient was seen today on 10/07/2024, he is now postoperative day #2. Patient went into atrial fibrillation last night, he is now on amiodarone as per protocol. He is resting in a recliner, patient is not in any distress hemodynamically stable, on room air with O2 saturation in the 90s, again he had a brief episode last night with atrial fibrillation treated with IV amiodarone. Today asymptomatic achieving about 1000 cc with his intensive spirometry. Continues to have mediastinal and right and left pleural chest tubes present. Chest x-ray showed mostly atelectasis, and postoperative changes. With some pulmonary vascular congestion. Bilateral chest tubes noted on the chest x-ray, no evidence of pneumothorax. WBC count today is 10.1 hemoglobin 7.1 electrolytes showed low sodium of 130 electrolytes otherwise are normal BUN is normal creatinine is normal at 0.98 Seen today on 10/08/2024, he is now postoperative day #3, patient seems to be doing fairly well although his chest x-ray is showing atelectasis and possibly a small right-sided pleural effusion, patient is asymptomatic, on room air, O2 sats 96%. Patient is in and out of atrial fibrillation, but hemodynamically stable, denies shortness of breath denies any nausea vomiting abdominal pain, achieving about 1500 cc on his incentive spirometry. Continues to have right- sided chest tube in place. Patient had a total of 250 cc of fluid drained from the right sided chest tube over the last 24 hours, 80 overnight. Seen today on 10/09/2024, patient is now postoperative day #4. Patient has been experiencing paroxysmal atrial fibrillation, his right-sided chest tube was just removed by thoracic surgery. Patient is not in any distress, he is on room air, asymptomatic. Pain seems to be fairly under control. Patient is achieving over 1800 cc on his incentive spirometry, he has been ambulating. He did receive 2 boluses of amiodarone throughout the night because of his atrial fibrillation. Chest x-ray was reviewed mostly postoperative changes, and minimal bibasilar atelectasis, expected. Patient is not requiring any inotropes or any pressors he is hemodynamically stable. Patient was seen today on 10/10/2024, patient is now postoperative day #5, he is doing great. He is in the stepdown unit, sitting at the bedside chair, in no distress, he is alert and oriented x 3, has been ambulating, chest x-ray showed significant improvement in his pleural effusions and atelectasis, he is achieving over 1200 cc up to 1500 cc on his incentive spirometry. Patient is on maximal medical therapy, chest x-ray again is reassuring, hence patient may be considered for discharge today. WBC count is 6.5 hemoglobin 7.1 electrolytes are normal renal profile is normal. Objective - Vital Signs Vital signs: Vital Signs Temp 98.3 F 10/10/24 08:40 Pulse 85 10/10/24 08:40 Resp 18 10/10/24 08:40 BP 119/70 10/10/24 08:40 Pulse Ox 96 10/10/24 08:40 FiO2 50 10/05/24 16:00 Intake & Output 10/09/24 10/10/24 10/10/24 18:59 06:59 18:59 Intake Total 236 0 Output Total 1080 100 101 Balance -844 -100 -101 Weight 94.3 kg Intake: Oral 236 0 Output: Urine 1080 100 100 Stool 1 Other: Voiding Method Urinal Urinal Urinal # Voids 1 # Bowel Movements 1 ABP, PAP, CO, CI - Last Documented Arterial Blood Pressure 102/47 Pulmonary Artery Pressure 26/13 Cardiac Output 7.4 Cardiac Index 3.5 - Exam CONSTITUTIONAL: Revealed 64-year-old white male, on room air Head: Atraumatic, normocephalic RESPIRATORY: Diminished breath sound bilaterally no rhonchi no wheezes, r CARDIOVASCULAR: S1, S2 present. Regular rate and rhythm, GASTROINTESTINAL: Soft nontender no rebound no guarding. INTEGUMENTARY: Skin is warm, no rashes NEUROLOGIC: Alert and oriented x 3 no gross focal deficit MUSKULOSKELETAL: No deformities and no limitation range of motion PSYCHIATRIC: Normal mood affect and no mental status examination - Labs CBC & Chem 7: 10/10/24 05:52 10/10/24 05:52 Labs: Abnormal Lab Results - Last 24 Hours (Table) 10/09/24 10/09/24 10/10/24 Range/Units 16:26 20:16 05:52 RBC 2.50 L (4.30-5.90) m/uL Hgb 7.1 L (13.0-17.5) gm/dL Hct 22.7 L (39.0-53.0) % Sodium (137-145) mmol/L BUN (9-20) mg/dL Glucose (74-99) mg/dL POC Glucose (mg/dL) 127 H 138 H (70-110) mg/dL Calcium (8.4-10.2) mg/dL 10/10/24 10/10/24 10/10/24 Range/Units 05:52 05:58 12:01 RBC (4.30-5.90) m/uL Hgb (13.0-17.5) gm/dL Hct (39.0-53.0) % Sodium 136 L (137-145) mmol/L BUN 21 H (9-20) mg/dL Glucose 100 H (74-99) mg/dL POC Glucose (mg/dL) 127 H 134 H (70-110) mg/dL Calcium 8.3 L (8.4-10.2) mg/dL Assessment and Plan Assessment: Impression: Triple-vessel coronary artery bypass grafting using the in situ left intramammary artery to the left anterior descending artery, left radial artery from the aorta to the diagonal artery, reverse saphenous vein graft from the aorta to the posterior descending artery, postoperative day #5 Mild LV dysfunction with ejection fraction of 45% Moderate mitral regurgitation Benign essential hypertension Dyslipidemia History of thyroid nodule with normal thyroid function test. Postoperative atelectasis, expected, resolved based on chest x-ray today. Paroxysmal atrial fibrillation, expected Recommendation: Continue medical therapy with aspirin statin Plavix beta-bl ockers Continue incentive spirometry Continue ambulation Will clear for discharge if cleared by other consultants Time with Patient: Less than 30
[2024-10-10] MEDS: FUROSEMIDE 10 MG/ML 2 ML VIAL IV ONE (12:46)
--- NOTE | 2024-10-10 13:18 | P.PN ---
Subjective Progress Note Date: 10/10/24 The patient is a 64-year-old male who is admitted with chest discomfort and subsequent coronary bypass. Patient has done well postoperatively. He has been up ambulating without issue. Plan is to be discharged later today No chest pain or chest pressure. No difficulty breathing. GENERAL: Well-appearing, well-nourished and in no acute distress. NECK: Supple without JVD or thyromegaly. LUNGS: Breath sounds clear to auscultation bilaterally. Respiration equal and unlabored. No wheezes, rales or rhonchi. HEART: Regular rate and rhythm without murmurs, rubs or gallops. S1 and S2 heard. Heart hugger in place EXTREMITIES: Normal range of motion, no edema. No clubbing or cyanosis. Peripheral pulses intact and strong. TELEMETRY: Sinus rhythm overnight IMPRESSION: Triple-vessel coronary artery disease with unstable angina, status post three- vessel CABG Ischemic cardiomyopathy, EF 45-50% 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 Hypertension Hyperlipidemia PLAN: Continue supportive treatment Aggressive pulmonary hygiene Patient to be discharged later today Outpatient follow-up with primary wet cleaner machine in 1 week, Dr Zaman I am dictating on behalf of Dr Mauricio Mena's history/physical and assessment/plan. Objective - Vital Signs Vital signs: Vital Signs Temp 98.3 F 10/10/24 08:40 Pulse 85 10/10/24 08:40 Resp 18 10/10/24 08:40 BP 119/70 10/10/24 08:40 Pulse Ox 96 10/10/24 08:40 FiO2 50 10/05/24 16:00 Intake & Output 10/09/24 10/10/24 10/10/24 18:59 06:59 18:59 Intake Total 236 0 Output Total 1080 100 100 Balance -844 -100 -100 Weight 94.3 kg Intake: Oral 236 0 Output: Urine 1080 100 100 Other: Voiding Method Urinal Urinal # Voids 1 # Bowel Movements 1 ABP, PAP, CO, CI - Last Documented Arterial Blood Pressure 102/47 Pulmonary Artery Pressure 26/13 Cardiac Output 7.4 Cardiac Index 3.5 - Labs CBC & Chem 7: 10/10/24 05:52 10/10/24 05:52 Labs: Abnormal Lab Results - Last 24 Hours (Table) 10/09/24 10/09/24 10/09/24 Range/Units 11:44 16:26 20:16 RBC (4.30-5.90) m/uL Hgb (13.0-17.5) gm/dL Hct (39.0-53.0) % Sodium (137-145) mmol/L BUN (9-20) mg/dL Glucose (74-99) mg/dL POC Glucose (mg/dL) 129 H 127 H 138 H (70-110) mg/dL Calcium (8.4-10.2) mg/dL 10/10/24 10/10/24 10/10/24 Range/Units 05:52 05:52 05:58 RBC 2.50 L (4.30-5.90) m/uL Hgb 7.1 L (13.0-17.5) gm/dL Hct 22.7 L (39.0-53.0) % Sodium 136 L (137-145) mmol/L BUN 21 H (9-20) mg/dL Glucose 100 H (74-99) mg/dL POC Glucose (mg/dL) 127 H (70-110) mg/dL Calcium 8.3 L (8.4-10.2) mg/dL
[2024-10-10 16:45] LABS: Glucose,Whole Blood 123 mg/dL (70-110)
[2024-10-10] MEDS: ALBUMIN HUMAN 5% 500 ML in EMPTY BAG 1 BAG IVPB ONE ×5 (18:47→18:48)
[2024-10-10] MEDS: MD COMMUNICATION TO PHARMACY 1 EACH MISC PO ONE ×2 (18:47)
[2024-10-10] MEDS: CALCIUM CHLORIDE 100 MG/ML 10 ML SYRINGE IVP ONE (18:48)
[2024-10-10] MEDS: ELECTROLYTE-A SOLUTION 1,000 ML with POTASSIUM CHLORIDE 100 MEQ, MAGNESIUM SULFATE 16 M... IV ONE (18:49)
[2024-10-10] MEDS: CLEVIDIPINE BUTYRATE 25 MG in EMPTY BAG 1 BAG IV SCH (18:49)
[2024-10-10] MEDS: HEPARIN SODIUM 1,000 UN/ML (10ML VL) IV ONE (18:49)
[2024-10-10] MEDS: ELECTROLYTE-A SOLUTION 1,000 ML with POTASSIUM CHLORIDE 40 MEQ, MAGNESIUM SULFATE 16 ME... IV ONE (18:49)
[2024-10-10] MEDS: ceFAZolin 1,000 MG in SODIUM CHLORIDE 0.9% IRRIGATIO 1,000 ML IRRIGATION ONE (18:49)
[2024-10-10] MEDS: DILTIAZEM 125 MG in SODIUM CHLORIDE 0.9% 100 ML IV SCH (18:49)
[2024-10-10] MEDS: CHLORHEXIDINE GLUCONATE 15 ML CUP MUCOUS MEM ONE (18:50)
[2024-10-10] MEDS: PAPAVERINE 360 MG in SODIUM CHLORIDE 0.9% 90 ML IV ONE (18:50)
[2024-10-10] MEDS: NITROGLYCERIN-D5W PMX 50 MG in DEXTROSE/WATER 1 250ML.BAG IV SCH (18:50)
[2024-10-10] MEDS: HEPARIN SODIUM,PORCINE (1 ML) 5,000 UNIT in SODIUM CHLORIDE 0.9% 500 ML 500 ML IV ONE (18:50)
[2024-10-10] MEDS: PHENYLEPHRINE 10 MG/ML VIAL IV ONE (18:50)
[2024-10-10] MEDS: NITROGLYCERIN-D5W PMX 25 MG/250 ML BTL IV ONE (18:51)
[2024-10-10] MEDS: LACTATED RINGERS 1,000 ML IV SCH (18:51)
[2024-10-10] MEDS: MAGNESIUM SULFATE 16.24 MEQ in EMPTY SYRINGE 1 SYR IV ONE (18:51)
[2024-10-10] MEDS: MANNITOL 25% 12.5 GM/50 ML VIAL IV ONE ×2 (18:52)
[2024-10-10] MEDS: SODIUM BICARB 8.4% 50 ML SYR (1 MEQ/ML) IV ONE (18:53)
[2024-10-10] MEDS: PHENYLEPHRINE 40 MG in SODIUM CHLORIDE 0.9% 250 ML IV ONE (18:53)
[2024-10-10] MEDS: PROTAMINE SULFATE 250 MG in EMPTY BAG 1 BAG IV ONE (18:53)
[2024-10-10] MEDS: PROTAMINE SULFATE 10 MG/ML 25 ML VIAL IV ONE (18:53)
[2024-10-10] MEDS: TRANEXAMIC ACID 2,000 MG in SODIUM CHLORIDE 0.9% 80 ML IV ONE (18:53)
[2024-10-10 19:43] LABS: Glucose,Whole Blood 182 mg/dL (70-110)
[2024-10-10] MEDS: APIXABAN 5 MG TAB PO SCH (20:01)
[2024-10-10] MEDS: METOPROLOL TARTRATE 50 MG TAB PO SCH (20:01)
[2024-10-11 05:01] LABS: Glucose,Whole Blood 129 mg/dL (70-110)
--- NOTE | 2024-10-11 06:55 | XR ---
EXAMINATION TYPE: XR chest 1V portable DATE OF EXAM: 10/11/2024 CLINICAL INDICATION: Male, 64 years old with history of Postop CABG, progress study. TECHNIQUE: Single AP portable upright view of the chest is obtained. COMPARISON: Chest x-ray 1 day earlier and earlier studies FINDINGS: Overlying sternal wires and mediastinal clips are redemonstrated. Left atrial appendage cl ip is redemonstrated. There is persistent cardiomegaly with bibasilar opacities. Osseous structures are intact. New small t o moderate sized left lateral and superior pneumothorax estimated at 15-20%. IMPRESSION: New Small to moderate-sized left-sided pneumothorax. Patient's nurse made aware of finding at time of dictation by the x-ray technologist. [facility], , 10/11/2024 6:53 AM
[2024-10-11 07:04] LABS: HCT 23.4 % (39.0-53.0); HGB 7.6 gm/dL (13.0-17.5); Hypochromasia Moderate; MCH 29.1 pg (25.0-35.0); MCHC 32.3 g/dL (31.0-37.0); MCV 90.1 fL (80.0-100.0); Mean Platelet Volume 7.8; Platelet Count 367 k/uL (150-450); RBC 2.59 m/uL (4.30-5.90); RDW 14.9 % (11.5-15.5); WBC 8.9 k/uL (3.8-10.6)
[2024-10-11 07:18] LABS: African American GFR (CKD) 76 (>60 ml/min/1.73 sqM); Anion Gap 9 mmol/L; Blood Urea Nitrogen 24 mg/dL (9-20); Calcium 8.1 mg/dL (8.4-10.2); Carbon Dioxide 24 mmol/L (22-30); Chloride 105 mmol/L (98-107); Glucose 104 mg/dL (74-99); Magnesium 2.4 mg/dL (1.6-2.3); Non-African American GFR(CKD) 66 (>60 ml/min/1.73 sqM); Potassium 3.8 mmol/L (3.5-5.1); Sodium 138 mmol/L (137-145)
[2024-10-11] MEDS: ASPIRIN 81 MG PO SCH (08:34)
--- NOTE | 2024-10-11 09:18 | P.PN ---
Subjective Progress Note Date: 10/11/24 Principal diagnosis: Triple-vessel coronary artery disease with unstable angina, mild left ventricular dysfunction. Medical history significant for evidence of old inferior wall myocardial infarction, hypertension, hyperlipidemia. POD #6 triple-vessel coronary artery bypass grafting using the in situ left intramammary artery to the left anterior descending artery, left radial artery from the aorta to the diagonal artery, reverse saphenous vein graft from the aorta to the posterior descending artery, exclusion of the left atrial appendage using a 35mm AtriClip, endoscopic harvesting of the left radial artery, endoscopic harvesting of the left greater saphenous vein, graft flow measurement using the [employer] system, intraoperative transesophageal echocardiogram and epiaortic scanning. Postoperative acute blood loss anemia and thrombocytopenia, likely from cardiopulmonary bypass pump and hemodilution. Paroxysmal atrial fibrillation, a known common occurrence after open heart surgery, currently sinus rhythm. Spontaneous left-sided pneumothorax, unexpected The patient was seen and examined in follow-up today October 11, 2024 at his bedside on the third floor cardiac stepdown unit. He is currently sitting up to the bedside chair, is awake, alert, oriented x 3 and is in no acute apparent distress. He denies any complaints of pain or shortness of breath at this time. The patient's x-ray this morning shows a spontaneous small to moderate-sized left-sided pneumothorax. Oxygen saturations are 94% on room air and he is achieving 2000 mL on his incentive spirometry with encouragement. He reports he has been up ambulating in his room and in the cardiac stepdown unit hallway with standby assistance nursing and therapy staff and tolerating well. Remote tel emetry is showing normal sinus rhythm heart rate 89 bpm. He has been having some episodes of paroxysmal atrial fibrillation and continues on amiodarone p.o. and metoprolol tartrate p.o. He remains hemodynamically stable and is currently on no inotropic or pressor support. Chest x-ray and laboratory results were reviewed. Objective - Vital Signs Vital signs: Vital Signs Temp 97.8 F 10/11/24 03:31 Pulse 86 10/11/24 08:15 Resp 16 10/11/24 03:31 BP 114/69 10/11/24 03:31 Pulse Ox 94 L 10/11/24 08:08 FiO2 50 10/05/24 16:00 Intake & Output 10/10/24 10/11/24 10/11/24 18:59 06:59 18:59 Intake Total 240 Output Total 302 402 Balance -62 -402 Weight 93.4 kg Intake: Oral 240 Output: Urine 300 400 Stool 2 2 Other: Voiding Method Urinal Urinal # Bowel Movements 1 ABP, PAP, CO, CI - Last Documented Arterial Blood Pressure 102/47 Pulmonary Artery Pressure 26/13 Cardiac Output 7.4 Cardiac Index 3.5 - Exam CONSTITUTIONAL: Sitting up to the bedside chair on the third floor cardiac s tepdown unit, appears comfortable, cooperative, no apparent acute distress. HEENT: Neck is supple, no JVD, no lymphadenopathy. RESPIRATORY: Lungs sounds essentially clear throughout, diminished to his bilateral bases, left greater than right. Respirations are symmetrical and nonlabored. Currently on room air with oxygen saturations 94%. Able to achieve 2000 mL on his incentive spirometry. Strong cough. CARDIOVASCULAR: Regular rhythm and rate. S1 and S2 present, negative for S3, gallop or murmur. Sternum is stable. Remote telemetry is showing normal sinus rhythm heart rate 89 bpm. Palpable peripheral pulses bilaterally. No calf pain or tenderness noted. Heart hugger in place with patient demonstrating appropriate use. Knee-high SOPHIE hose and sequential compression devices in place to his bilateral lower extremities. GASTROINTESTINAL: Abdomen soft, nontender, nondistended. Active bowel sounds present 4 quadrants. Tolerating diet. Passing flatus. No guarding or rigidity. Bowel movement yesterday October 10, 2024. GENITOURINARY: Continues to void. INTEGUMENTARY: Skin is warm and dry with no evidence of clubbing or cyanosis. Midline sternal incision clean dry and well approximated, covered with dry intact dressing. Left lower extremity EVH sites well approximated without redness or drainage. Left arm radial artery harvest sites clean, dry and approximated. No drainage or redness is present. NEUROLOGIC: Cranial nerves II through XII intact. No focal deficits. MUSKULOSKELETAL: Able to move all extremities, strength equal bilaterally, generalized weakness. PSYCHIATRIC: Alert and oriented to person place and time, appropriate affect, intact judgment and insight. INVASIVE LINES AND TUBES: Atrial epicardial pacemaker wires in place and grounded. - Allied health notes Allied health notes reviewed: nursing - Labs CBC & Chem 7: 10/11/24 06:00 10/11/24 06:00 Labs: Abnormal Lab Results - Last 24 Hours (Table) 0310/10/24 10/10/24 Range/Units 12:01 16:43 19:42 RBC (4.30-5.90) m/uL Hgb (13.0-17.5) gm/dL Hct (39.0-53.0) % BUN (9-20) mg/dL Glucose (74-99) mg/dL POC Glucose (mg/dL) 134 H 123 H 182 H (70-110) mg/dL Calcium (8.4-10.2) mg/dL Magnesium (1.6-2.3) mg/dL 10/11/24 10/11/24 10/11/24 Range/Units 04:59 06:00 06:00 RBC 2.59 L (4.30-5.90) m/uL Hgb 7.6 L (13.0-17.5) gm/dL Hct 23.4 L (39.0-53.0) % BUN 24 H (9-20) mg/dL Glucose 104 H (74-99) mg/dL POC Glucose (mg/dL) 129 H (70-110) mg/dL Calcium 8.1 L (8.4-10.2) mg/dL Magnesium 2.4 H (1.6-2.3) mg/dL - Imaging and Cardiology Chest x-ray: report reviewed, image reviewed Assessment and Plan Assessment: Triple-vessel coronary artery disease with unstable angina, status post three- vessel CABG Mild left ventricular dysfunction, EF 45-50% Postoperative acute blood loss anemia and thrombocytopenia, likely from cardiopulmonary bypass pump and hemodilution Paroxysmal atrial fibrillation, a known common occurrence after open heart surgery, status post ligation of the left atrial appendage, currently normal sinus rhythm Spontaneous left-sided pneumothorax, unexpected 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 Hypertension Hyperlipidemia, cholesterol 210, LDL 145 Plan: Dr. Wheeler will place a left Thoravent chest tube this a.m. Consent obtained. Continue to maximize medical therapy with aspirin, statin, Plavix, and beta- ryan. Will increase metoprolol tartrate as tolerated. Currently on metoprolol tartrate 50 mg p.o. twice daily. Continue amiodarone 400 mg p.o. twice daily for atrial fibrillation. Continue Eliquis 5 mg p.o. twice daily has been initiated for anticoagulation. Lasix 20 mg IV x 1 now. Encourage incentive spirometry use 10 times every hour while awake. Bronchodilators per pulmonology. Will monitor daily labs and chest x-rays. Electrolyte replacement per protocol. Increase activity, ambulate as tolerated. PT/OT/cardiac rehab following. GI/DVT prophylaxis. Pain control per current medication regimen. Insulin management per internal medicine. Patient is not diabetic, preoperative hemoglobin A1c 6%. Continue to monitor record strict accurate intake and output. Daily weights. Shower daily. Discharge planning is in place, anticipate discharge home with home health care in the next 48 hours. More recommendations to follow based on patient's clinical course. Time with Patient: Greater than 30
[2024-10-11] MEDS: LIDOCAINE 1% INJ 10MG/ML (20 ML MDV) SQ ONE (10:10)
[2024-10-11] MEDS: FUROSEMIDE 10 MG/ML 2 ML VIAL IV ONE (10:11)
--- NOTE | 2024-10-11 10:15 | P.PCN ---
Date of Procedure: 10/11/24 Preoperative Diagnosis: Left pneumothorax Postoperative Diagnosis: Same Procedure(s) Performed: Left Thora vent placement Anesthesia: local Surgeon: Dennis Wheeler Estimated Blood Loss (ml): 1 Pathology: none sent Condition: stable Disposition: floor Indications for Procedure: 64-year-old male status post coronary bypass surgery approximately 5 days ago, was scheduled for discharge home today but morning x-ray demonstrated new 40% left-sided pneumothorax. Description of Procedure: Patient was treated at the bedside. He was seated in a chair. Left anterior chest was sterilely prepped and draped. 2% lidocaine was used for anesthesia. Skin wheal was created over the second interspace medially on the left side. Tract to the pleura through the interspace was anesthetized with 2% lidocaine and the pleura was anesthetized. This tract was then enlarged with an 11 blade and then a 11 [place] Thora vent introduced into the chest cavity without difficulty. Was secured to the chest with adhesive strips. Air was aspirated from the Thora vent totaling 350 cc. Chest x-ray was then ordered. Patient tolerated procedure well.
--- NOTE | 2024-10-11 10:42 | XR ---
EXAMINATION TYPE: XR chest 1V portable DATE OF EXAM: 10/11/2024 CLINICAL INDICATION: Male, 64 years old with history of thoravent, progress study. TECHNIQUE: Single AP portable upright view of the chest is obtained. COMPARISON: Chest x-ray from earlier today FINDINGS: There is new left apical chest tube without pneumothorax seen on current study. Overlying sternal wires and mediastinal clips are redemonstrated. Left atrial appendage clip is redem onstrated. There is persistent cardiomegaly with bibasilar opacities and low lung volumes. Osseous structures ar e intact. IMPRESSION: New Left-sided chest tube without pneumothorax. Other findings stable. [facility], , 10/11/2024 10:40 AM
[2024-10-11 11:23] LABS: Glucose,Whole Blood 108 mg/dL (70-110)
[2024-10-11] MEDS: POTASSIUM CHLORIDE ER 20 MEQ TAB.ER PO SCH (11:47)
--- NOTE | 2024-10-11 12:24 | P.PN ---
Subjective Progress Note Date: 10/11/24 The patient is a 64-year-old male who is admitted with chest discomfort and subsequent coronary bypass. Patient was cleared to be discharged yesterday when he continued to have episodes of A-fib with RVR upon ambulating. Chest x-ray this morning did show pneumothorax and therefore patient is to undergo Pleurx catheter placement. No chest pain or chest pressure. No difficulty breathing currently. Patient interviewed and examined sitting up in the recliner chair GENERAL: Well-appearing, well-nourished and in no acute distress. NECK: Supple without JVD or thyromegaly. LUNGS: Breath sounds clear to auscultation bilaterally. Respiration equal and unlabored. No wheezes, rales or rhonchi. HEART: Regular rate and rhythm without murmurs, rubs or gallops. S1 and S2 heard. Heart hugger in place EXTREMITIES: Normal range of motion, no edema. No clubbing or cyanosis. Peripheral pulses intact and strong. TELEMETRY: Sinus rhythm episodes of A-fib with RVR IMPRESSION: Pneumothorax Triple-vessel coronary artery disease with unstable angina, status post three- vessel CABG Ischemic cardiomyopathy, EF 45-50% 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 Postoperative atrial fibrillation Hypertension Hyperlipidemia PLAN: Continue oral amiodarone, beta-ryan, and anticoagulation for atrial fibrillation Continue supportive treatment Further recommendations to be based upon clinical course I am dictating on behalf of Dr Mauricio Mena's history/physical and assessment/plan. Objective - Vital Signs Vital signs: Vital Signs Temp 97.9 F 10/11/24 08:19 Pulse 71 10/11/24 11:33 Resp 16 10/11/24 08:19 BP 129/70 10/11/24 08:19 Pulse Ox 97 10/11/24 08:19 FiO2 50 10/05/24 16:00 Intake & Output 10/10/24 10/11/24 10/11/24 18:59 06:59 18:59 Intake Total 240 240 Output Total 302 402 Balance -62 -402 240 Weight 93.4 kg Intake: Oral 240 240 Output: Urine 300 400 Stool 2 2 Other: Voiding Method Urinal Urinal Urinal # Bowel Movements 1 ABP, PAP, CO, CI - Last Documented Arterial Blood Pressure 102/47 Pulmonary Artery Pressure 26/13 Cardiac Output 7.4 Cardiac Index 3.5 - Labs CBC & Chem 7: 10/11/24 06:00 10/11/24 06:00 Labs: Abnormal Lab Results - Last 24 Hours (Table) 10/10/24 10/10/24 10/11/24 Range/Units 16:43 19:42 04:59 RBC (4.30-5.90) m/uL Hgb (13.0-17.5) gm/dL Hct (39.0-53.0) % BUN (9-20) mg/dL Glucose (74-99) mg/dL POC Glucose (mg/dL) 123 H 182 H 129 H (70-110) mg/dL Calcium (8.4-10.2) mg/dL Magnesium (1.6-2.3) mg/dL 10/11/24 10/11/24 Range/Units 06:00 06:00 RBC 2.59 L (4.30-5.90) m/uL Hgb 7.6 L (13.0-17.5) gm/dL Hct 23.4 L (39.0-53.0) % BUN 24 H (9-20) mg/dL Glucose 104 H (74-99) mg/dL POC Glucose (mg/dL) (70-110) mg/dL Calcium 8.1 L (8.4-10.2) mg/dL Magnesium 2.4 H (1.6-2.3) mg/dL
--- NOTE | 2024-10-11 13:14 | P.PN ---
Subjective Progress Note Date: 10/11/24 Principal diagnosis: Triple-vessel coronary artery bypass grafting using the in situ left intramammary artery to the left anterior descending artery, left radial artery from the aorta to the diagonal artery, reverse saphenous vein graft from the aorta to the posterior descending artery, postoperative day # 6 This is a 64-year-old male patient who is being seen preoperatively as the patient is scheduled to undergo coronary bypass surgery on 10/05/2024. The patient presented with chest pain and an abnormal stress test and he underwent a cardiac catheterization the patient was found to have 99% stenosis involving the LAD and a diagonal branch, and dominant RCA with 60 to 70% mid stenosis and totally occluded distal RCA with collaterals from the septals toward the PDA and PLV. This finding consultation was placed to cardiothoracic surgery for revascularization recommendations. Of note he did have a transthoracic echocardiogram completed revealing reduced left ventricular systolic function with EF 45 to 50%, mild to moderate mitral regurgitation and mild tricuspid regurgitation without pulmonary hypertension, there was no pericardial effusion and the aortic root and proximal ascending aorta more normal size. The patient otherwise doing well. No specific complaints. He is known to have hypertension hyperlipidemia. No respiratory difficulties for now. History of any chest pain for now. The chest x-ray from 10/02/2024 was reviewed and showed no acute card iopulmonary process. CAT scan of the chest done on 10/01/2024 shows a 2 cm right thyroid nodule. Otherwise, the lungs showed some mild limited and linear scarring and reticulation in the right upper lobe with focal mild linear scarring in the lingula. Otherwise, no other significant abnormalities were noted. Minimal amount of plaques involving the thoracic aorta. The white cell count is at 5.8, he was 12.1 and a platelet count of 411. Normal thyroid function test. Normal UA. proBNP level was 1000. TSH is at 4.12. Good performance status. On 10/04/2024, the patient has no specific complaints and the patient is hemodynamic stable and free of any chest pain. Awaiting surgery for tomorrow. The white cell count of 5.8 with hemoglobin 12.7 and a platelet count of 388. Normal coagulation profile. Normal electrolytes. BUN is 22 with a creatinine of 1.08. LFTs are normal. The patient continues to use incentive spirometer. He is quite active. No cardiac arrhythmias have been noted. Patient was seen today on 10/05/2024, he is status post Triple-vessel coronary artery bypass grafting using the in situ left intramammary artery to the left anterior descending artery, left radial artery from the aorta to the diagonal artery, reverse saphenous vein graft from the aorta to the posterior descending artery, postoperative day #0, patient was seen in the ICU shortly after he arriv ed, patient is mostly on nitroglycerin drip, 5 mcg/min, patient is intubated and mechanically ventilated, patient is on tidal volume of 500, assist-control rate of 14, FiO2 100%, and PEEP of 5 ABG showed a pO2 of 360 pCO2 37 pH of 7.39. During my evaluation, the patient is awake but seems to be quite anxious, restless, agitated, he was complaining of pain, patient received pain medication, and shortly after we proceeded with trial of weaning with CPAP. Shortly after his weaning parameters were noted, and patient was extubated to a nasal cannula. ABG on CPAP showed a pO2 of 67 pCO2 34 pH of 7.38 and was on 40% FiO2. Cardiac output was 6.5, and his cardiac index was 3.2. Chest x-ray showe d postoperative changes, no evidence of active disease. Patient was seen today on 10/06/2024, he is now postoperative day #1. Patient remains in the ICU, he was extubated at 16: 30 5 PM yesterday, he is in sinus rhythm, hemodynamically stable, not requiring any pressors, he is receiving the nitro for vessel spasm prophylaxis. He is on 4 L nasal cannula, does not seem to be in distress. Not achieving much on his incentive spirometry, no more than 500 cc. Chest x-ray is showing mostly bibasilar atelectasis and postoperative changes. Continues to have his right internal jugular [place], he has mediastinal right and left pleural chest tubes in place, and no leaks noted. WBC count is 6.1 hemoglobin is 7.1, basic metabolic profile is normal renal profile showed a BUN of 18 creatinine 0.81 Patient was seen today on 10/07/2024, he is now postoperative day #2. Patient went into atrial fibrillation last night, he is now on amiodarone as per protocol. He is resting in a recliner, patient is not in any distress hemodynamically stable, on room air with O2 saturation in the 90s, again he had a brief episode last night with atrial fibrillation treated with IV amiodarone. Today asymptomatic achieving about 1000 cc with his intensive spirometry. Continues to have mediastinal and right and left pleural chest tubes present. Chest x-ray showed mostly atelectasis, and postoperative changes. With some pulmonary vascular congestion. Bilateral chest tubes noted on the chest x-ray, no evidence of pneumothorax. WBC count today is 10.1 hemoglobin 7.1 electrolytes showed low sodium of 130 electrolytes otherwise are normal BUN is normal creatinine is normal at 0.98 Seen today on 10/08/2024, he is now postoperative day #3, patient seems to be doing fairly well although his chest x-ray is showing atelectasis and possibly a small right-sided pleural effusion, patient is asymptomatic, on room air, O2 sats 96%. Patient is in and out of atrial fibrillation, but hemodynamically stable, denies shortness of breath denies any nausea vomiting abdominal pain, achieving about 1500 cc on his incentive spirometry. Continues to have right- sided chest tube in place. Patient had a total of 250 cc of fluid drained from the right sided chest tube over the last 24 hours, 80 overnight. Seen today on 10/09/2024, patient is now postoperative day #4. Patient has been experiencing paroxysmal atrial fibrillation, his right-sided chest tube was just removed by thoracic surgery. Patient is not in any distress, he is on room air, asymptomatic. Pain seems to be fairly under control. Patient is achieving over 1800 cc on his incentive spirometry, he has been ambulating. He did receive 2 boluses of amiodarone throughout the night because of his atrial fibrillation. Chest x-ray was reviewed mostly postoperative changes, and minimal bibasilar atelectasis, expected. Patient is not requiring any inotropes or any pressors he is hemodynamically stable. Patient was seen today on 10/10/2024, patient is now postoperative day #5, he is doing great. He is in the stepdown unit, sitting at the bedside chair, in no distress, he is alert and oriented x 3, has been ambulating, chest x-ray showed significant improvement in his pleural effusions and atelectasis, he is achieving over 1200 cc up to 1500 cc on his incentive spirometry. Patient is on maximal medical therapy, chest x-ray again is reassuring, hence patient may be considered for discharge today. WBC count is 6.5 hemoglobin 7.1 electrolytes are normal renal profile is normal. Seen today on 10/11/2024, patient is now postoperative day #6. Patient has been doing well, however his chest x-ray today showed a spontaneous left-sided pneumothorax about 20%, and I was notified by Estelle Rosales that Dr. Wheeler is coming in to place a Thora vent on the left side. This was apparently done prior to me seeing the patient. Postoperative chest x-ray showed adequate placement of the Thora vent and expansion of the left lung without pneumothorax. Clinically the patient continues to do well. He is on room air and not in any distress. Objective - Vital Signs Vital signs: Vital Signs Temp 98.2 F 10/11/24 11:46 Pulse 80 10/11/24 11:46 Resp 16 10/11/24 11:46 BP 103/62 10/11/24 11:46 Pulse Ox 94 L 10/11/24 11:46 FiO2 50 10/05/24 16:00 Intake & Output 10/10/24 10/11/24 10/11/24 18:59 06:59 18:59 Intake Total 240 780 Output Total 302 402 Balance -62 -402 780 Weight 93.4 kg Intake: Oral 240 780 Output: Urine 300 400 Stool 2 2 Other: Voiding Method Urinal Urinal Urinal # Bowel Movements 1 ABP, PAP, CO, CI - Last Documented Arterial Blood Pressure 102/47 Pulmonary Artery Pressure 26/13 Cardiac Output 7.4 Cardiac Index 3.5 - Exam CONSTITUTIONAL: Revealed 64-year-old white male, on room air Head: Atraumatic, normocephalic RESPIRATORY: Diminished breath sound bilaterally no rhonchi no wheezes, left- sided Thora vent is noted CARDIOVASCULAR: S1, S2 present. Regular rate and rhythm, GASTROINTESTINAL: Soft nontender no rebound no guarding. INTEGUMENTARY: Skin is warm, no rashes NEUROLOGIC: Alert and oriented x 3 no gross focal deficit MUSKULOSKELETAL: No deformities and no limitation range of motion PSYCHIATRIC: Normal mood affect and no mental status examination - Labs CBC & Chem 7: 10/11/24 06:00 10/11/24 06:00 Labs: Abnormal Lab Results - Last 24 Hours (Table) 10/10/24 10/10/24 10/11/24 Range/Units 16:43 19:42 04:59 RBC (4.30-5.90) m/uL Hgb (13.0-17.5) gm/dL Hct (39.0-53.0) % BUN (9-20) mg/dL Glucose (74-99) mg/dL POC Glucose (mg/dL) 123 H 182 H 129 H (70-110) mg/dL Calcium (8.4-10.2) mg/dL Magnesium (1.6-2.3) mg/dL 10/11/24 10/11/24 Range/Units 06:00 06:00 RBC 2.59 L (4.30-5.90) m/uL Hgb 7.6 L (13.0-17.5) gm/dL Hct 23.4 L (39.0-53.0) % BUN 24 H (9-20) mg/dL Glucose 104 H (74-99) mg/dL POC Glucose (mg/dL) (70-110) mg/dL Calcium 8.1 L (8.4-10.2) mg/dL Magnesium 2.4 H (1.6-2.3) mg/dL Assessment and Plan Assessment: Impression: Triple-vessel coronary artery bypass grafting using the in situ left intramammary artery to the left anterior descending artery, left radial artery from the aorta to the diagonal artery, reverse saphenous vein graft from the a kathie to the posterior descending artery, postoperative day #6 Spontaneous left-sided pneumothorax required Thora vent placement by cardiothoracic surgery Mild LV dysfunction with ejection fraction of 45% Moderate mitral regurgitation Benign essential hypertension Dyslipidemia History of thyroid nodule with normal thyroid function test. Postoperative atelectasis, expected, resolved based on chest x-ray today. Paroxysmal atrial fibrillation, expected Recommendation: Continue to monitor daily x-rays of the chest Continue medical therapy with aspirin statin Plavix beta-blockers Continue incentive spirometry Continue ambulation Possible discharge in the next 24 hours Time with Patient: Less than 30
[2024-10-11 16:39] LABS: Glucose,Whole Blood 117 mg/dL (70-110)
[2024-10-11] MEDS: METOPROLOL TARTRATE 50 MG TAB PO STA (17:59)
[2024-10-11 20:12] LABS: Glucose,Whole Blood 135 mg/dL (70-110)
--- NOTE | 2024-10-11 21:03 | PN ---
PROGRESS NOTE SUBJECTIVE: 64-year-old white male was kept due to pneumothorax, for which a chest tube was put in by Dr. Wheeler . The patient felt immediate relief with 20% pneumothorax which apparently is better now. They are keeping him overnight to monitor breathing. OBJECTIVE: VITAL SIGNS: Apparently, blood pressure 132/68, pulse 92, respiratory rate 16, temp 97.9. GENERAL: He is alert and oriented x3. He has been up and ambulating down the [place]ado. ASSESSMENT: 1. Pneumothorax. 2. Status post bypass surgery. 3. Atelectasis versus pneumonia. 4. Acute on chronic anemia. His hemoglobin is up to 7.6. Sugars are mid 100s. He is doing well. Prognosis is good. He will go home once chest tube issue with Dr. Wheeler's results in the morning. MMODL / IJN: [id number] /
[2024-10-12 04:55] LABS: African American GFR (CKD) 76 (>60 ml/min/1.73 sqM); Anion Gap 10 mmol/L; Blood Urea Nitrogen 26 mg/dL (9-20); Calcium 8.5 mg/dL (8.4-10.2); Carbon Dioxide 22 mmol/L (22-30); Chloride 106 mmol/L (98-107); Glucose 100 mg/dL (74-99); HCT 24.2 % (39.0-53.0); HGB 7.6 gm/dL (13.0-17.5); Hypochromasia Moderate; MCHC 31.4 g/dL (31.0-37.0); MCV 92.6 fL (80.0-100.0); Mean Platelet Volume 7.9; Non-African American GFR(CKD) 66 (>60 ml/min/1.73 sqM); Platelet Count 437 k/uL (150-450); RBC 2.61 m/uL (4.30-5.90); RDW 15.7 % (11.5-15.5); Sodium 138 mmol/L (137-145); WBC 7.9 k/uL (3.8-10.6)
[2024-10-12 06:08] LABS: Glucose,Whole Blood 110 mg/dL (70-110)
--- NOTE | 2024-10-12 06:35 | P.PN ---
Subjective Progress Note Date: 10/12/24 The patient is a pleasant 64-year-old gentleman with a past medical history significant for CAD status post CABG complicated yesterday by paroxysmal atrial fibrillation and left pneumothorax status post Thora vent placement by Dr. Wheeler. October 12, 2024 The patient was seen and evaluated this morning. Overall he is feeling better. The chest x-ray was reviewed with he is hemodynamically stable as well. The physical examination is remarkable for regular rhythm with diminished breathing sounds bilaterally and no edema was noted in the lower extremities Assessment CAD status post CABG Postoperative atrial fibrillation Left pneumothorax s/p Thora vent Multiple comorbid conditions Plan Continue the current medical regimen Continue monitoring the chest x-ray Follow-up with the patient Objective - Vital Signs Vital signs: Vital Signs Temp 98.5 F 10/12/24 03:06 Pulse 82 10/12/24 03:06 Resp 16 10/12/24 03:06 BP 111/70 10/12/24 03:06 Pulse Ox 94 L 10/12/24 03:06 FiO2 50 10/05/24 16:00 Intake & Output 10/11/24 10/11/24 10/12/24 06:59 18:59 06:59 Intake Total 780 Output Total 402 625 350 Balance -402 155 -350 Weight 93.4 kg 97.5 kg Intake: Oral 780 Output: Urine 400 625 350 Stool 2 Other: Voiding Method Urinal Urinal Urinal ABP, PAP, CO, CI - Last Documented Arterial Blood Pressure 102/47 Pulmonary Artery Pressure 26/13 Cardiac Output 7.4 Cardiac Index 3.5 - Labs CBC & Chem 7: 10/12/24 04:08 10/12/24 04:08 Labs: Abnormal Lab Results - Last 24 Hours (Table) 10/11/24 10/11/24 10/11/24 Range/Units 06:00 06:00 16:38 RBC 2.59 L (4.30-5.90) m/uL Hgb 7.6 L (13.0-17.5) gm/dL Hct 23.4 L (39.0-53.0) % RDW (11.5-15.5) % BUN 24 H (9-20) mg/dL Glucose 104 H (74-99) mg/dL POC Glucose (mg/dL) 117 H (70-110) mg/dL Calcium 8.1 L (8.4-10.2) mg/dL Magnesium 2.4 H (1.6-2.3) mg/dL 10/11/24 10/12/24 10/12/24 Range/Units 20:10 04:08 04:08 RBC 2.61 L (4.30-5.90) m/uL Hgb 7.6 L (13.0-17.5) gm/dL Hct 24.2 L (39.0-53.0) % RDW 15.7 H (11.5-15.5) % BUN 26 H (9-20) mg/dL Glucose 100 H (74-99) mg/dL POC Glucose (mg/dL) 135 H (70-110) mg/dL Calcium (8.4-10.2) mg/dL Magnesium (1.6-2.3) mg/dL
--- NOTE | 2024-10-12 07:09 | XR ---
EXAMINATION TYPE: XR chest 1V portable DATE OF EXAM: 10/12/2024 6:46 AM COMPARISON: Chest radiographs from 10/11/2024. CLINICAL INDICATION: Male, 64 years old with history of Postop CABG; [facility] TECHNIQUE: XR chest 1V portable Frontal view of the chest. FINDINGS: Lungs/Pleura: No evidence of focal consolidation or pneumothorax. Blunting of the costophrenic angles is present. Pulmonary vascularity: Unremarkable. Heart/mediastinum: Cardiomediastinal silhouette is unremarkable. Musculoskeletal: No acute osseous pathology. Midline sternotomy wires are noted. Other findings: None Lines/Tubes: Left thoracotomy tube is present without evidence of pneumothorax. IMPRESSION: 1. Postprocedural changes. Small bilateral pleural effusions. 2. Thoracotomy tube in place no pneumothorax. [facility], , 10/12/2024 7:07 AM
[2024-10-12] MEDS: METOPROLOL TARTRATE 25 MG TAB PO SCH (08:07)
--- NOTE | 2024-10-12 08:53 | P.PN ---
Subjective Progress Note Date: 10/12/24 Principal diagnosis: Triple-vessel coronary artery disease with unstable angina, mild left ventricular dysfunction. 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, hypertension, hyperlipidemia POD #7 triple-vessel coronary artery bypass grafting using the in situ left intramammary artery to the left anterior descending artery, left radial artery from the aorta to the diagonal artery, reverse saphenous vein graft from the aorta to the posterior descending artery, exclusion of the left atrial appendage using a 35mm AtriClip, endoscopic harvesting of the left radial artery, endoscopic harvesting of the left greater saphenous vein, graft flow measurement using the Kognitiostim system, intraoperative transesophageal echocardiogram and epiaortic scanning Postoperative acute blood loss anemia and thrombocytopenia, likely from cardiopulmonary bypass pump and hemodilution Paroxysmal atrial fibrillation, known and common occurrence after open heart surgery, currently sinus rhythm Spontaneous left-sided pneumothorax, unexpected, status post Thora-vent placem ent by Dr. Wheeler The patient was seen and examined sitting up in recliner on the cardiac stepdown unit this morning in no acute distress. Currently in sinus rhythm, hemodynamically stable. Remains on room air with oxygen saturation in the mid 90s. He does complain of expected postsurgical pain which is controlled on current medication regimen, denies shortness of breath. Able to achieve 1250 mL on his incentive spirometry. Left sided Thora-vent present that suction, no airleak present. Patient continues to ambulate in the hallway without difficulty. Labs, chest x-ray reviewed. No other new concerns. Objective - Vital Signs Vital signs: Vital Signs Temp 98.0 F 10/12/24 07:53 Pulse 92 10/12/24 08:11 Resp 18 10/12/24 07:53 BP 114/63 10/12/24 07:53 Pulse Ox 96 10/12/24 07:53 FiO2 50 10/05/24 16:00 Intake & Output 10/11/24 10/12/24 10/12/24 18:59 06:59 18:59 Intake Total 780 Output Total 625 350 Balance 155 -350 Weight 97.5 kg Intake: Oral 780 Output: Urine 625 350 Other: Voiding Method Urinal Urinal ABP, PAP, CO, CI - Last Documented Arterial Blood Pressure 102/47 Pulmonary Artery Pressure 26/13 Cardiac Output 7.4 Cardiac Index 3.5 - Exam CONSTITUTIONAL: Appears comfortable, cooperative, no acute distress RESPIRATORY: Lungs sounds diminished in the bases bilaterally. Respirations even, nonlabored. Currently on room air with oxygen saturation 94%. Able to ac hieve 1250 mL on incentive spirometry. Strong cough. CARDIOVASCULAR: S1, S2 present. Regular rate and rhythm, sinus rhythm on telemetry. Sternum stable. Palpable peripheral pulses bilaterally. No edema present. No calf pain or tenderness noted. Heart hugger in place with patient demonstrating appropriate use. Antiembolism stockings, SCDs present. GASTROINTESTINAL: Abdomen soft, nontender, nondistended. Active bowel sounds present 4 quadrants. Tolerating diet. Positive bowel movement 10/10 GENITOURINARY: Continues to void INTEGUMENTARY: Skin is warm and dry with evidence of good perfusion. Anterior chest incision well approximated. Left radial harvest as well as left lower extremity EVH site well approximated without redness or drainage NEUROLOGIC: Cranial nerves II through XII intact MUSKULOSKELETAL: Able to move all extremities, strength equal bilaterally, gait normal PSYCHIATRIC: Alert and oriented to person place and time, appropriate affect, intact judgment and insight INVASIVE LINES AND TUBES: Left sided Thora-vent present without suction, no airleak present - Allied health notes Allied health notes reviewed: nursing - Labs CBC & Chem 7: 10/12/24 04:08 10/12/24 04:08 Labs: Abnormal Lab Results - Last 24 Hours (Table) 10/11/24 10/11/24 10/12/24 Range/Units 16:38 20:10 04:08 RBC 2.61 L (4.30-5.90) m/uL Hgb 7.6 L (13.0-17.5) gm/dL Hct 24.2 L (39.0-53.0) % RDW 15.7 H (11.5-15.5) % BUN (9-20) mg/dL Glucose (74-99) mg/dL POC Glucose (mg/dL) 117 H 135 H (70-110) mg/dL 10/12/24 Range/Units 04:08 RBC (4.30-5.90) m/uL Hgb (13.0-17.5) gm/dL Hct (39.0-53.0) % RDW (11.5-15.5) % BUN 26 H (9-20) mg/dL Glucose 100 H (74-99) mg/dL POC Glucose (mg/dL) (70-110) mg/dL - Imaging and Cardiology Chest x-ray: report reviewed, image reviewed Assessment and Plan Assessment: Triple-vessel coronary artery disease with unstable angina, status post three- vessel CABG Mild left ventricular dysfunction, EF 45-50% Postoperative acute blood loss anemia and thrombocytopenia, likely from cardiopulmonary bypass pump and hemodilution Paroxysmal atrial fibrillation, known common occurrence after open heart surgery, status post ligation of the left atrial appendage, currently sinus Spontaneous left-sided pneumothorax, unexpected 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 Continue Eliquis for anticoagulation Encourage incentive spirometry use 10 times every hour while awake. Bronchodilators per pulmonology Will monitor daily labs and x-rays. Electrolyte replacement per protocol Increase activity, ambulate as tolerated. PT/OT/cardiac rehab following GI/DVT prophylaxis Pain control per current medication regimen Insulin management per internal medicine. Patient is not diabetic, preoperative hemoglobin A1c 6% Occlusive cap placed to Thora-vent, will repeat chest x-ray at 11:30, if no pneumothorax will remove Thora-vent Continue to monitor record strict accurate intake and output Daily weights Discharge planning in progress, anticipate discharge to home with home care later this afternoon versus tomorrow More recommendations to follow as patient progresses
[2024-10-12 11:10] LABS: Glucose,Whole Blood 126 mg/dL (70-110)
--- NOTE | 2024-10-12 11:41 | XR ---
EXAMINATION TYPE: XR chest 2V DATE OF EXAM: 10/12/2024 11:32 AM COMPARISON: Chest radiographs from same day. CLINICAL INDICATION: Male, 64 years old with history of post thoravent plug; H TECHNIQUE: XR chest 2V Frontal and lateral views of the chest. FINDINGS: Lungs/Pleura: No evidence of focal consolidation or pneumothorax. Blunting of the costophrenic angles is present. Pulmonary vascularity: Unremarkable. Heart/mediastinum: Cardiomediastinal silhouette is unremarkable. Musculoskeletal: No acute osseous pathology. Midline sternotomy wires are noted. Other findings: None Lines/Tubes: Left thoracotomy tube is present without evidence of pneumothorax. IMPRESSION: 1. Postprocedural changes. Small bilateral pleural effusions. 2. Thoracotomy tube in place no pneumothorax. [facility], , 10/12/2024 11:39 AM
--- NOTE | 2024-10-12 12:47 | P.PN ---
Subjective Progress Note Date: 10/12/24 Principal diagnosis: Chest pain. This is a 64-year-old male patient who is being seen preoperatively as the patient is scheduled to undergo coronary bypass surgery on 10/05/2024. The patient presented with chest pain and an abnormal stress test and he underwent a cardiac catheterization the patient was found to have 99% stenosis involving the LAD and a diagonal branch, and dominant RCA with 60 to 70% mid stenosis and totally occluded distal RCA with collaterals from the septals toward the PDA and PLV. This finding consultation was placed to cardiothoracic surgery for kevon scularization recommendations. Of note he did have a transthoracic echocardiogram completed revealing reduced left ventricular systolic function with EF 45 to 50%, mild to moderate mitral regurgitation and mild tricuspid regurgitation without pulmonary hypertension, there was no pericardial effusion and the aortic root and proximal ascending aorta more normal size. The patient otherwise doing well. No specific complaints. He is known to have hypertension hyperlipidemia. No respiratory difficulties for now. History of any chest pain for now. The chest x-ray from 10/02/2024 was reviewed and showed no acute cardiopulmonary process. CAT scan of the chest done on 10/01/2024 shows a 2 cm right thyroid nodule. Otherwise, the lungs showed some mild limited and linear scarring and reticulation in the right upper lobe with focal mild linear scarring in the lingula. Otherwise, no other significant abnormalities were noted. Minimal amount of plaques involving the thoracic aorta. The white cell count is at 5.8, he was 12.1 and a platelet count of 411. Normal thyroid function test. Normal UA. proBNP level was 1000. TSH is at 4.12. Good performance status. On 10/04/2024, the patient has no specific complaints and the patient is hemodynamic stable and free of any chest pain. Awaiting surgery for tomorrow. The white cell count of 5.8 with hemoglobin 12.7 and a platelet count of 388. Normal coagulation profile. Normal electrolytes. BUN is 22 with a creatinine of 1.08. LFTs are normal. The patient continues to use incentive spirometer. He is quite active. No cardiac arrhythmias have been noted. Patient was seen today on 10/05/2024, he is status post Triple-vessel coronary artery bypass grafting using the in situ left intramammary artery to the left anterior descending artery, left radial artery from the aorta to the diagonal artery, reverse saphenous vein graft from the aorta to the posterior descending artery, postoperative day #0, patient was seen in the ICU shortly after he arrived, patient is mostly on nitroglycerin drip, 5 mcg/min, patient is intubated and mechanically ventilated, patient is on tidal volume of 500, assist-control rate of 14, FiO2 100%, and PEEP of 5 ABG showed a pO2 of 360 pCO2 37 pH of 7.39. During my evaluation, the patient is awake but seems to be quite anxious, restless, agitated, he was complaining of pain, patient received pain medication, and shortly after we proceeded with trial of weaning with CPAP. Shortly after his weaning parameters were noted, and patient was extubated to a nasal cannula. ABG on CPAP showed a pO2 of 67 pCO2 34 pH of 7.38 and was on 40% FiO2. Cardiac output was 6.5, and his cardiac index was 3.2. Chest x-ray showed postoperative changes, no evidence of active disease. Patient was seen today on 10/06/2024, he is now postoperative day #1. Patient remains in the ICU, he was extubated at 16: 30 5 PM yesterday, he is in sinus rhythm, hemodynamically stable, not requiring any pressors, he is receiving the nitro for vessel spasm prophylaxis. He is on 4 L nasal cannula, does not seem to be in distress. Not achieving much on his incentive spirometry, no more than 500 cc. Chest x-ray is showing mostly bibasilar atelectasis and postoperative changes. Continues to have his right internal jugular Henderson/Cordis, he has mediastinal right and left pleural chest tubes in place, and no leaks noted. WBC count is 6.1 hemoglobin is 7.1, basic metabolic profile is normal renal profile showed a BUN of 18 creatinine 0.81 Patient was seen today on 10/07/2024, he is now postoperative day #2. Patient went into atrial fibrillation last night, he is now on amiodarone as per protocol. He is resting in a recliner, patient is not in any distress hemodynamically stable, on room air with O2 saturation in the 90s, again he had a brief episode last night with atrial fibrillation treated with IV amiodarone. Today asymptomatic achieving about 1000 cc with his intensive spirometry. Continues to have mediastinal and right and left pleural chest tubes present. Chest x-ray showed mostly atelectasis, and postoperative changes. With some pulmonary vascular congestion. Bilateral chest tubes noted on the chest x-ray, no evidence of pneumothorax. WBC count today is 10.1 hemoglobin 7.1 electrolyt es showed low sodium of 130 electrolytes otherwise are normal BUN is normal creatinine is normal at 0.98 Seen today on 10/08/2024, he is now postoperative day #3, patient seems to be doing fairly well although his chest x-ray is showing atelectasis and possibly a small right-sided pleural effusion, patient is asymptomatic, on room air, O2 sats 96%. Patient is in and out of atrial fibrillation, but hemodynamically stable, denies shortness of breath denies any nausea vomiting abdominal pain, achieving about 1500 cc on his incentive spirometry. Continues to have right- sided chest tube in place. Patient had a total of 250 cc of fluid drained from the right sided chest tube over the last 24 hours, 80 overnight. Seen today on 10/09/2024, patient is now postoperative day #4. Patient has been experiencing paroxysmal atrial fibrillation, his right-sided chest tube was just removed by thoracic surgery. Patient is not in any distress, he is on room air, asymptomatic. Pain seems to be fairly under control. Patient is achieving over 1800 cc on his incentive spirometry, he has been ambulating. He did receive 2 boluses of amiodarone throughout the night because of his atrial fibrillation. Chest x-ray was reviewed mostly postoperative changes, and minimal bibasilar atelectasis, expected. Patient is not requiring any inotropes or any pressors he is hemodynamically stable. Patient was seen today on 10/10/2024, patient is now postoperative day #5, he is doing great. He is in the stepdown unit, sitting at the bedside chair, in no distress, he is alert and oriented x 3, has been ambulating, chest x-ray showed significant improvement in his pleural effusions and atelectasis, he is a chieving over 1200 cc up to 1500 cc on his incentive spirometry. Patient is on maximal medical therapy, chest x-ray again is reassuring, hence patient may be considered for discharge today. WBC count is 6.5 hemoglobin 7.1 electrolytes are normal renal profile is normal. Seen today on 10/11/2024, patient is now postoperative day #6. Patient has been doing well, however his chest x-ray today showed a spontaneous left-sided pneumothorax about 20%, and I was notified by Estelle Rosales that Dr. Wheeler is coming in to place a Thora vent on the left side. This was apparently done prior to me seeing the patient. Postoperative chest x-ray showed adequate placement of the Thora vent and expansion of the left lung without pneumothorax. Clinically the patient continues to do well. He is on room air and not in any distress. Progress note dated October 12, 2024. This is a patient who is status post bypass grafting. The patient is postoperative day #7. The patient had a chest x-ray yesterday which showed a spontaneous left-sided pneumothorax. A left Thora vent device was placed by cardiothoracic surgery. It was done by Dr. Wheeler. Currently, the patient is doing relatively well. He is on room air. He is not receiving any IV fluids. He denies any shortness of breath, cough, wheezing, chest tightness, or phlegm production. Current laboratory data includes a white count 7.9, hemoglobin 7.6, hematocrit 24.2, and a normal platelet count. Sodium 138, potassium 4, chlorides 106, CO2 22, BUN 26, creatinine 1.16. Glucose is 126. Calcium 8.5. Chest x-ray shows no obvious pneumothorax. There are small bilateral pleural effusions. Objective - Vital Signs Vital signs: Vital Signs Temp 98.0 F 10/12/24 07:53 Pulse 76 10/12/24 12:26 Resp 18 10/12/24 12:26 BP 100/64 10/12/24 12:26 Pulse Ox 100 10/12/24 12:26 FiO2 50 10/05/24 16:00 Intake & Output 10/11/24 10/12/24 10/12/24 18:59 06:59 18:59 Intake Total 780 236 Output Total 625 350 1 Balance 155 -350 235 Weight 97.5 kg Intake: Oral 780 236 Output: Urine 625 350 Stool 1 Other: Voiding Method Urinal Urinal Urinal ABP, PAP, CO, CI - Last Documented Arterial Blood Pressure 102/47 Pulmonary Artery Pressure 26/13 Cardiac Output 7.4 Cardiac Index 3.5 - Exam No acute distress, oriented 3. Currently on room air. No respiratory distress. HEENT examination is grossly unremarkable. Mucous membranes are moist. No oral lesions. Neck supple. Full range of motion. No adenopathy thyromegaly or neck vein d istention. Cardiovascular examination reveals regular rhythm rate. S1-S2 normal. No S3 or S4. No discernible murmur noted. Lungs reveal clear breath sounds. Breath sounds are equal bilaterally. No adventitious lung sounds including wheezes rhonchi or crackles. Left Thora vent device noted. Abdomen soft bowel sounds are heard. No masses or tenderness. Extremities are intact. No cyanosis clubbing or edema. Skin is without rash or lesion. Neurologic examination is brief but nonfocal. - Labs CBC & Chem 7: 10/12/24 04:08 10/12/24 04:08 Labs: Abnormal Lab Results - Last 24 Hours (Table) 10/11/24 10/11/24 10/12/24 Range/Units 16:38 20:10 04:08 RBC 2.61 L (4.30-5.90) m/uL Hgb 7.6 L (13.0-17.5) gm/dL Hct 24.2 L (39.0-53.0) % RDW 15.7 H (11.5-15.5) % BUN (9-20) mg/dL Glucose (74-99) mg/dL POC Glucose (mg/dL) 117 H 135 H (70-110) mg/dL 10/12/24 10/12/24 Range/Units 04:08 11:07 RBC (4.30-5.90) m/uL Hgb (13.0-17.5) gm/dL Hct (39.0-53.0) % RDW (11.5-15.5) % BUN 26 H (9-20) mg/dL Glucose 100 H (74-99) mg/dL POC Glucose (mg/dL) 126 H (70-110) mg/dL Assessment and Plan Assessment: Severe triple-vessel coronary artery disease, S/P three-vessel bypass surgery, postop day #7. Routine postoperative ventilator management. Spontaneous left-sided pneumothorax, October 11, 2024, S/P Thora vent placement by cardiothoracic surgery. Mild LV dysfunction with an ejection fraction of 45%. Moderate mitral regurgitation. Benign essential hypertension. Dyslipidemia. History of thyroid nodule. Postoperative atelectasis. Paroxysmal atrial fibrillation. Plan: Plan dated October 12, 2024. The patient is doing relatively well. He is sitting in the chair next to the hospital bed. He is in room 352. He is on room air. No IV fluids. Yesterday, he developed a spontaneous left-sided pneumothorax. A Thora vent device was p laced by cardiothoracic surgery. Today's chest x-ray does not reveal pneumothorax. The Thora vent may come out later today. Will leave that up to cardiothoracic surgery. From the pulmonary standpoint the patient is doing very well. He denies any shortness of breath, cough, wheezing, chest tightness, or phlegm production. Labs, x-rays, and all medications are reviewed. Dictation was produced using [employer] dictation software. Please excuse any grammatical, word or spelling errors. Time with Patient: Less than 30
[2024-10-12] MEDS: polyethylene glycoL 3350 17 GM POWD.PACK PO SCH (16:04)
[2024-10-12 16:19] LABS: Glucose,Whole Blood 103 mg/dL (70-110)
[2024-10-12 19:58] LABS: Glucose,Whole Blood 135 mg/dL (70-110)
[2024-10-13] MEDS: ACETAMINOPHEN TAB 500 MG TAB PO PRN (01:01)
[2024-10-13 06:04] LABS: Glucose,Whole Blood 112 mg/dL (70-110)
--- NOTE | 2024-10-13 06:44 | XR ---
EXAMINATION TYPE: XR chest 2V DATE OF EXAM: 10/13/2024 6:17 AM COMPARISON: Multiple radiographs, with the most recent on 10/12/2024 TECHNIQUE: XR chest 2V Frontal and lateral views of the chest. CLINICAL INDICATION:Male, 64 years old with history of Postcardiac surgery; FINDINGS: Lungs/Pleura: There is no evidence of pleural effusion, focal consolidation, or pneumothorax. Pulmonary vascularity: Unremarkable. Heart/mediastinum: Cardiomediastinal silhouette is enlarged and stable. Postsurgical changes. Left a trial appendage occlusion devices present. Musculoskeletal: No acute osseous pathology. Midline sternotomy wires are noted and stable. Other: Interval removal of left thoracotomy tube. IMPRESSION: Postcardiac surgical changes with interval removal of left thoracotomy tube. No pneumothorax. [facility], , 10/13/2024 6:42 AM
[2024-10-13 06:57] LABS: HCT 24.6 % (39.0-53.0); HGB 7.9 gm/dL (13.0-17.5); Hypochromasia Marked; MCH 29.4 pg (25.0-35.0); MCHC 32.2 g/dL (31.0-37.0); MCV 91.4 fL (80.0-100.0); Mean Platelet Volume 7.7; Platelet Count 522 k/uL (150-450); RDW 15.6 % (11.5-15.5); WBC 8.9 k/uL (3.8-10.6)
[2024-10-13 07:20] LABS: African American GFR (CKD) 76 (>60 ml/min/1.73 sqM); Anion Gap 11 mmol/L; Blood Urea Nitrogen 25 mg/dL (9-20); Calcium 8.5 mg/dL (8.4-10.2); Carbon Dioxide 21 mmol/L (22-30); Chloride 107 mmol/L (98-107); Glucose 99 mg/dL (74-99); Non-African American GFR(CKD) 66 (>60 ml/min/1.73 sqM); Potassium 4.2 mmol/L (3.5-5.1); Sodium 139 mmol/L (137-145)
--- NOTE | 2024-10-13 07:58 | P.DS ---
Providers Date of admission: 09/30/24 11:37 Expected date of discharge: 10/13/24 Attending physician: Kain Troncoso Consults: 09/30/24 12:24 Consult Physician Routine Consulting Provider: Lakshmi Zaman Consult Reason/Comments: abnormal stress test Do you want consulting provider notified?: Yes Placement Type Exists?: Yes 09/30/24 15:55 Consult Physician Routine Consulting Provider: Dennis Wheeler Consult Reason/Comments: cabg Do you want consulting provider notified?: Yes 10/03/24 09:47 Consult Physician Routine Consulting Provider: Gerhard Staley Consult Reason/Comments: preop cabg Do you want consulting provider notified?: Already Contacted 10/03/24 10:00 Consult Physician Routine Consulting Provider: Milo Hart Consult Reason/Comments: med mgmt Do you want consulting provider notified?: Already Contacted 10/04/24 09:11 Consult to Anesthesia Routine Consulting Provider: Anesthesia,Services Consult Reason/Comments: Cardiac Surgery Pre-Op Primary care physician: Milo Hart [facility] Course: FINAL DIAGNOSIS: Triple-vessel coronary artery disease with unstable angina Mild left ventricular dysfunction, EF 45-50% Postoperative acute blood loss anemia and thrombocytopenia, likely from cardiopulmonary bypass pump and hemodilution Paroxysmal atrial fibrillation, known common occurrence after open heart surgery, currently sinus Spontaneous left-sided pneumothorax, unexpected 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 Hypertension Hyperlipidemia, cholesterol 210, LDL 145 PRINCIPAL PROCEDURE: Triple-vessel coronary artery bypass grafting using the in situ left intramammary artery to the left anterior descending artery, left radial artery from the aorta to the diagonal artery, reverse saphenous vein graft from the aorta to the posterior descending artery Exclusion of the left atrial appendage using a 35mm AtriClip Endoscopic harvesting of the left radial artery Endoscopic harvesting of the left greater saphenous vein Graft flow measurement using the Sabesim system Intraoperative transesophageal echocardiogram and epiaortic scanning Thora-vent placement HISTORY OF PRESENT ILLNESS: This is a 64-year-old gentleman who follows outpatient with Dr. Tristin Hart for internal medicine, he does not normally follow with a medical secretary teacher or any other physicians. Apparently he had a couple of episodes of chest pain, 1 in May and 1 in June. He has had no chest pain since. He reported to his dentist to his primary care physician who arranged a treadmill stress test which was completed 09/30/24. During the stress test he had ST elevation in the inferior leads and ST depression in the precordial leads. The ST changes did resolve with rest. He was taken to the Kitchen Clerk by Dr. Zaman revealing no left main disease, 99% stenosis involving the LAD and a diagonal branch, and dominant RCA with 60 to 70% mid stenosis and totally occluded distal RCA with collaterals from the septals toward the PDA and PLV. Due to this finding consultation was placed to cardiothoracic surgery for revascularization recommendations. Of note he did have a transthoracic echocardiogram completed revealing reduced left ventricular systolic function with EF 45 to 50%, mild to moderate mitral regurgitation and mild tricuspid regurgitation without pulmonary hypertension, there was no pericardial effusion and the aortic root and proximal ascending aorta more normal size. He was seen by Dr. Troncoso recommended to undergo surgical myocardial revascularization. The usual perioperative course was discussed in detail with the patient and his family, all risks and benefits were explained, all questions were answered, and consent was obtained to proceed with surgery. The patient was kept inpatient due to the nature of his disease process. HOSPITAL COURSE: The patient was brought to the preoperative area 10/05/24, prepared in the usual fashion, and subsequently taken to the operating room where Dr. Troncoso performed three-vessel CABG. Upon completion of surgery the patient was transferred to the cardiovascular intensive care unit where he was recovered and monitored hemodynamically. He was extubated, all lines, tubes, and drips were discontinued when appropriate. He did experience paroxysmal atrial fibrillation for which he was placed on amiodarone and Eliquis, he was in sinus rhythm at discharge. He also developed a spontaneous left-sided pneumothorax which resolved with placement of Thora-vent. He was transferred to 3 cardiac stepdown unit for further monitoring and rehabilitation. His oxygen was titrated down, he continued to work with physical and occupational therapy, Thora-vent was removed with stable follow-up x-ray, he was tolerating oral diet, his pain was controlled, and he was ready to be discharged to home with [facility] care on postoperative day #8. He received written and verbal instruction regarding his medications, activity restrictions, signs and symptoms requiring physician notification, and follow-up appointments. Patient Condition at Discharge: Stable Plan - Discharge Summary Discharge Rx Participant: Yes New Discharge Prescriptions: New Apixaban [Eliquis] 5 mg PO BID #60 tab Acetaminophen Tab [Tylenol] 650 mg PO Q4HR PRN tab PRN Reason: Fever And/ Or Mild Pain (1-3) Amiodarone [Cordarone] See Taper PO BID #33 tab Aspirin EC [Ecotrin Low Dose] 81 mg PO DAILY #30 tab Ferrous Sulfate [Feosol] 325 mg PO BID #14 tab Atorvastatin [Lipitor] 40 mg PO DAILY #30 tab Pantoprazole [Protonix] 40 mg PO AC-BRKFST #30 tab Sennosides-Docusate Sodium [Senokot-S] 2 each PO HS #14 tab Ascorbic Acid [Vitamin C] 500 mg PO BID-W/MEALS #14 tab Metoprolol Tartrate [Lopressor] 75 mg PO BID #60 tablet Discontinued Losartan/Hydrochlorothiazide [Losartan-Hctz 100-25 mg Tab] 1 tab PO DAILY Discharge Medication List Acetaminophen Tab [Tylenol] 650 mg PO Q4HR PRN tab 10/09/24 [Rx] Amiodarone [Cordarone] See Taper PO BID #33 tab 10/09/24 [Rx] Apixaban [Eliquis] 5 mg PO BID #60 tab 10/09/24 [Rx] Ascorbic Acid [Vitamin C] 500 mg PO BID-W/MEALS #14 tab 10/09/24 [Rx] Aspirin EC [Ecotrin Low Dose] 81 mg PO DAILY #30 tab 10/09/24 [Rx] Atorvastatin [Lipitor] 40 mg PO DAILY #30 tab 10/09/24 [Rx] Ferrous Sulfate [Feosol] 325 mg PO BID #14 tab 10/09/24 [Rx] Pantoprazole [Protonix] 40 mg PO AC-BRKFST #30 tab 10/09/24 [Rx] Sennosides-Docusate Sodium [Senokot-S] 2 each PO HS #14 tab 10/09/24 [Rx] Metoprolol Tartrate [Lopressor] 75 mg PO BID #60 tablet 10/12/24 [Rx] Follow up Appointment(s)/Referral(s): Daisy Christiansen MD [STAFF PHYSICIAN] - 10/15/24 2:00 pm Lakshmi Zaman MD [STAFF PHYSICIAN] - 10/23/24 11:15 am Rehab [facility],Cardiac [NON-STAFF] - 4 Weeks (You will receive a phone call in approximately 4-6 weeks for evaluation for cardiac rehab) [facility],Home Care [NON-STAFF] - 1-2 Days (You should be seen by nurse the day after discharge, then 2-3 times per week until you start cardiac rehab. Physical and Occupational Therapy should visit at least once, may continue to visit if necessary) Kain Troncoso MD [STAFF PHYSICIAN] - 10/30/24 10:15 am Peter Rosales NPC [Nurse Practitioner] - 10/15/24 1:30 pm (Office located at [address] [place] [address], [facility]. Office number [phone]) Tristin Hart MD [REFERRING] - 10/22/24 10:45 am Ambulatory/Diagnostic Orders: Complete Blood Count w/diff [LAB.AMB] Time Frame: 3 Days, Location: None Selected Comprehensive Metabolic Panel [LAB.AMB] Time Frame: 3 Days, Location: None Selected Activity/Diet/Wound Care/Special Instructions: DISCHARGE INSTRUCTIONS: 1. No driving for 4 weeks, or until physician gives their ok. 2. The patient should sleep in their own bed, no medical bed needed. 3. Stairs are not an issue. If the bedroom is upstairs, it is advised that the patient go up at night and down in the morning for the first week. Go slowly, using handrail and take 1 step at a time. 4. SOPHIE hose are to be worn for 30 days post surgery or until physician discontinues. 5. Heart hugger is to be worn 100% of the time until physician discontinues.(except when showering) 6. No lifting, pushing, or pulling more than 10 pounds for 12 weeks. The physician will advise of any restriction changes. 7. The patient is expected to continue the prescribed walking program. 8. Continue pain control per as needed orders. 9. Continue with incentive spirometry and splinting/heart hugger until otherwise directed by the physician. 10. Must shower daily using liquid antibacterial soap 11. Routine sternal incision care. No powders, lotions, ointments on incisions. No dressings are necessary on incisions unless they are draining. Dermabond tape is to remain on sternal incision until surgeon follow-up. 12. Please call surgeon/RECORDING STUDIO INTERN for temp greater than 101 F or purulent drainage from incisions. 13. You should weigh yourself daily, record and bring log with you to follow up appointments. 14. All prescriptions given by surgeon for 30 days. Refills need to be filled through medical secretary teacher/primary care physician. 15. A Red armband has been placed on the patient. It should be worn for 30 days post discharge from surgery and will be removed by the cardiac surgeons. If an ER visit is necessary, please make sure the number on the Red armband is called before going to ER. 16. You have been referred to and are expected to begin Cardiac Rehab in approximately 4-6 weeks. 17. Quitting smoking is the most important step you can take to improve your health. For additional information and assistance to quit smoking, please call the [place] tobacco quit line (7-731-DNLK-NOW/ ) or online: [email or web address] HOME HEALTH SERVICES TO PROVIDE: RN SKILLED HOME CARE SERVICES FOR POST-OP SURGICAL PATIENTS WITH THE FOLLOWING: Coronary Artery Bypass Surgery (CABG), Mitral Valve Replacement/Repair ( MVR), Aortic Valve Replacement/Repair (AVR) RN TO CONTINUE EDUCATION FROM ``ROAD TO A HEALTH HEART PATIENT EDUCATION MANUAL (GIVEN TO PATIENT IN THE HOSPITAL) MEDICATION RECONCILIATION WITH EDUCATION NEEDED ON FIRST HOME VISIT EMPHASIZE IMPORTANCE OF WEARING BREAST SUPPORT/HEART HUGGER ENCOURAGE USE OF INCENTIVE SPIROMETER 10 X EVERY HOUR WHILE AWAKE ENCOURAGE UTILIZATION OF LOWER EXTREMITY COMPRESSION STOCKINGS/SOPHIE HOSE and ELEVATE LEGS ABOVE LEVEL OF HEART WHILE AT REST. ENCOURAGE AMBULATION 3-5x/day INCREASING TOLERATES, WHILE AVOIDING EXTREMES IN TEMPERATURE FREQUENCY: RN TO OPEN THE PATIENT WITHIN 24 HOURS OF DISCHARGE FROM THE HOSPITAL WITH TELEHEALTH INSTALLED AT [facility], RN TO VISIT 2-3 X A WEEK FOR 4 WEEKS ESTABLISHED BY PATIENT NEEDS. LABORATORY: CBC, CMP TO BE DRAWN ON THE THIRD DAY HOME, (RAN STAT) FAX RESULTS TO [phone]. TELEHEALTH PARAMETERS: WEIGHT: NOTIFY MD OF WEIGHT GAIN OF 2 LBS IN 24 HOURS OR 5 LBS IN ONE WEEK HR: NOTIFY MD OF HR <55 BPM OR HR>100 BPM BP: NOTIFY MD IF BP <90/55 OR BP>140/100 O2 SAT: NOTIFY MD IF PO2<93% ON ROOM AIR SEND TELEHEALTH REPORT TO BRAND LEAD AND CARDIOVASCULAR SURGEON THE FIRST WEEK OF CARE AND THEN BI-WEEKLY. PLEASE ADDITIONALLY COMMUNICATE ANY ABNORMALS AND NEW FINDINGS TO THE SURGEONS OFFICE. Discharge Disposition: HOME WITH HOME HEALTH SERVICES
[2024-10-13 08:34] VITALS: BP 114/68; RESP 16; TEMP 98.2
[2024-10-13 08:57] VITALS: PULSE 80
--- NOTE | 2024-10-13 10:58 | P.PN ---
Subjective Progress Note Date: 10/13/24 Principal diagnosis: Chest pain. This is a 64-year-old male patient who is being seen preoperatively as the patient is scheduled to undergo coronary bypass surgery on 10/05/2024. The patient presented with chest pain and an abnormal stress test and he underwent a cardiac catheterization the patient was found to have 99% stenosis involving the LAD and a diagonal branch, and dominant RCA with 60 to 70% mid stenosis and totally occluded distal RCA with collaterals from the septals toward the PDA and PLV. This finding consultation was placed to cardiothoracic surgery for kevon scularization recommendations. Of note he did have a transthoracic echocardiogram completed revealing reduced left ventricular systolic function with EF 45 to 50%, mild to moderate mitral regurgitation and mild tricuspid regurgitation without pulmonary hypertension, there was no pericardial effusion and the aortic root and proximal ascending aorta more normal size. The patient otherwise doing well. No specific complaints. He is known to have hypertension hyperlipidemia. No respiratory difficulties for now. History of any chest pain for now. The chest x-ray from 10/02/2024 was reviewed and showed no acute cardiopulmonary process. CAT scan of the chest done on 10/01/2024 shows a 2 cm right thyroid nodule. Otherwise, the lungs showed some mild limited and linear scarring and reticulation in the right upper lobe with focal mild linear scarring in the lingula. Otherwise, no other significant abnormalities were noted. Minimal amount of plaques involving the thoracic aorta. The white cell count is at 5.8, he was 12.1 and a platelet count of 411. Normal thyroid function test. Normal UA. proBNP level was 1000. TSH is at 4.12. Good performance status. On 10/04/2024, the patient has no specific complaints and the patient is hemodynamic stable and free of any chest pain. Awaiting surgery for tomorrow. The white cell count of 5.8 with hemoglobin 12.7 and a platelet count of 388. Normal coagulation profile. Normal electrolytes. BUN is 22 with a creatinine of 1.08. LFTs are normal. The patient continues to use incentive spirometer. He is quite active. No cardiac arrhythmias have been noted. Patient was seen today on 10/05/2024, he is status post Triple-vessel coronary artery bypass grafting using the in situ left intramammary artery to the left anterior descending artery, left radial artery from the aorta to the diagonal artery, reverse saphenous vein graft from the aorta to the posterior descending artery, postoperative day #0, patient was seen in the ICU shortly after he arrived, patient is mostly on nitroglycerin drip, 5 mcg/min, patient is intubated and mechanically ventilated, patient is on tidal volume of 500, assist-control rate of 14, FiO2 100%, and PEEP of 5 ABG showed a pO2 of 360 pCO2 37 pH of 7.39. During my evaluation, the patient is awake but seems to be quite anxious, restless, agitated, he was complaining of pain, patient received pain medication, and shortly after we proceeded with trial of weaning with CPAP. Shortly after his weaning parameters were noted, and patient was extubated to a nasal cannula. ABG on CPAP showed a pO2 of 67 pCO2 34 pH of 7.38 and was on 40% FiO2. Cardiac output was 6.5, and his cardiac index was 3.2. Chest x-ray showed postoperative changes, no evidence of active disease. Patient was seen today on 10/06/2024, he is now postoperative day #1. Patient remains in the ICU, he was extubated at 16: 30 5 PM yesterday, he is in sinus rhythm, hemodynamically stable, not requiring any pressors, he is receiving the nitro for vessel spasm prophylaxis. He is on 4 L nasal cannula, does not seem to be in distress. Not achieving much on his incentive spirometry, no more than 500 cc. Chest x-ray is showing mostly bibasilar atelectasis and postoperative changes. Continues to have his right internal jugular [place], he has mediastinal right and left pleural chest tubes in place, and no leaks noted. WBC count is 6.1 hemoglobin is 7.1, basic metabolic profile is normal renal profile showed a BUN of 18 creatinine 0.81 Patient was seen today on 10/07/2024, he is now postoperative day #2. Patient went into atrial fibrillation last night, he is now on amiodarone as per protocol. He is resting in a recliner, patient is not in any distress hemodynamically stable, on room air with O2 saturation in the 90s, again he had a brief episode last night with atrial fibrillation treated with IV amiodarone. Today asymptomatic achieving about 1000 cc with his intensive spirometry. Continues to have mediastinal and right and left pleural chest tubes present. Chest x-ray showed mostly atelectasis, and postoperative changes. With some pulmonary vascular congestion. Bilateral chest tubes noted on the chest x-ray, no evidence of pneumothorax. WBC count today is 10.1 hemoglobin 7.1 electrolyt es showed low sodium of 130 electrolytes otherwise are normal BUN is normal creatinine is normal at 0.98 Seen today on 10/08/2024, he is now postoperative day #3, patient seems to be doing fairly well although his chest x-ray is showing atelectasis and possibly a small right-sided pleural effusion, patient is asymptomatic, on room air, O2 sats 96%. Patient is in and out of atrial fibrillation, but hemodynamically stable, denies shortness of breath denies any nausea vomiting abdominal pain, achieving about 1500 cc on his incentive spirometry. Continues to have right- sided chest tube in place. Patient had a total of 250 cc of fluid drained from the right sided chest tube over the last 24 hours, 80 overnight. Seen today on 10/09/2024, patient is now postoperative day #4. Patient has been experiencing paroxysmal atrial fibrillation, his right-sided chest tube was just removed by thoracic surgery. Patient is not in any distress, he is on room air, asymptomatic. Pain seems to be fairly under control. Patient is achieving over 1800 cc on his incentive spirometry, he has been ambulating. He did receive 2 boluses of amiodarone throughout the night because of his atrial fibrillation. Chest x-ray was reviewed mostly postoperative changes, and minimal bibasilar atelectasis, expected. Patient is not requiring any inotropes or any pressors he is hemodynamically stable. Patient was seen today on 10/10/2024, patient is now postoperative day #5, he is doing great. He is in the stepdown unit, sitting at the bedside chair, in no distress, he is alert and oriented x 3, has been ambulating, chest x-ray showed significant improvement in his pleural effusions and atelectasis, he is a chieving over 1200 cc up to 1500 cc on his incentive spirometry. Patient is on maximal medical therapy, chest x-ray again is reassuring, hence patient may be considered for discharge today. WBC count is 6.5 hemoglobin 7.1 electrolytes are normal renal profile is normal. Seen today on 10/11/2024, patient is now postoperative day #6. Patient has been doing well, however his chest x-ray today showed a spontaneous left-sided pneumothorax about 20%, and I was notified by Estelle Rosales that Dr. Wheeler is coming in to place a Thora vent on the left side. This was apparently done prior to me seeing the patient. Postoperative chest x-ray showed adequate placement of the Thora vent and expansion of the left lung without pneumothorax. Clinically the patient continues to do well. He is on room air and not in any distress. Progress note dated October 12, 2024. This is a patient who is status post bypass grafting. The patient is postoperative day #7. The patient had a chest x-ray yesterday which showed a spontaneous left-sided pneumothorax. A left Thora vent device was placed by cardiothoracic surgery. It was done by Dr. Wheeler. Currently, the patient is doing relatively well. He is on room air. He is not receiving any IV fluids. He denies any shortness of breath, cough, wheezing, chest tightness, or phlegm production. Current laboratory data includes a white count 7.9, hemoglobin 7.6, hematocrit 24.2, and a normal platelet count. Sodium 138, potassium 4, chlorides 106, CO2 22, BUN 26, creatinine 1.16. Glucose is 126. Calcium 8.5. Chest x-ray shows no obvious pneumothorax. There are small bilateral pleural effusions. Progress note dated 2024. 64-year-old male status post bypass surgery. He is postoperative day #8. Thora vent device was removed yesterday. Chest x-ray was done today. No obvious pneumothorax. The patient is on room air. He is not receiving any IV fluids. Current laboratory data includes a white count 8.9, hemoglobin 7.9, hematocrit 24.6, and a platelet count of 522,000. Sodium 139, potassium 4.2, chlorides 107, CO2 21. Anion gap was 11. BUN 25, creatinine 1.16. Glucose 99. Calcium 8.5. All labs, x-rays, and medications have been reviewed. The patient's chest x-ray does not reveal pneumothorax after removal of Thora vent device. Objective - Vital Signs Vital signs: Vital Signs Temp 98.2 F 10/13/24 07:45 Pulse 80 10/13/24 08:57 Resp 16 10/13/24 07:45 BP 114/68 10/13/24 07:45 Pulse Ox 96 10/13/24 07:45 FiO2 50 10/05/24 16:00 Intake & Output 10/12/24 10/13/24 10/13/24 18:59 06:59 18:59 Intake Total 472 10 180 Output Total 151 200 Balance 321 -190 180 Weight 96.2 kg Intake: IV 10 Invasive Line 1 10 Oral 472 180 Output: Urine 150 200 Stool 1 Other: Voiding Method Urinal Urinal # Bowel Movements 1 ABP, PAP, CO, CI - Last Documented Arterial Blood Pressure 102/47 Pulmonary Artery Pressure 26/13 Cardiac Output 7.4 Cardiac Index 3.5 - Exam No acute distress, oriented 3. Currently on room air. No respiratory distress. HEENT examination is grossly unremarkable. Mucous membranes are moist. No oral lesions. Neck supple. Full range of motion. No adenopathy thyromegaly or neck vein distention. Cardiovascular examination reveals regular rhythm rate. S1-S2 normal. No S3 or S4. No discernible murmur noted. Lungs reveal clear breath sounds. Breath sounds are equal bilaterally. No adventitious lung sounds including wheezes rhonchi or crackles. Abdomen soft bowel sounds are heard. No masses or tenderness. Extremities are intact. No cyanosis clubbing or edema. Skin is without rash or lesion. Neurologic examination is brief but nonfocal. - Labs CBC & Chem 7: 10/13/24 06:05 10/13/24 06:05 Labs: Abnormal Lab Results - Last 24 Hours (Table) 10/12/24 10/12/24 10/13/24 Range/Units 11:07 19:44 05:40 RBC (4.30-5.90) m/uL Hgb (13.0-17.5) gm/dL Hct (39.0-53.0) % RDW (11.5-15.5) % Plt Count (150-450) k/uL Carbon Dioxide (22-30) mmol/L BUN (9-20) mg/dL POC Glucose (mg/dL) 126 H 135 H 112 H (70-110) mg/dL 10/13/24 10/13/24 Range/Units 06:05 06:05 RBC 2.70 L (4.30-5.90) m/uL Hgb 7.9 L (13.0-17.5) gm/dL Hct 24.6 L (39.0-53.0) % RDW 15.6 H (11.5-15.5) % Plt Count 522 H (150-450) k/uL Carbon Dioxide 21 L (22-30) mmol/L BUN 25 H (9-20) mg/dL POC Glucose (mg/dL) (70-110) mg/dL Assessment and Plan Assessment: Severe triple-vessel coronary artery disease, S/P three-vessel bypass surgery, postop day #8. Routine postoperative ventilator management. Spontaneous left-sided pneumothorax, October 11, 2024, S/P Thora vent placement by cardiothoracic surgery, removed October 12, 2024. Mild LV dysfunction with an ejection fraction of 45%. Moderate mitral regurgitation. Benign essential hypertension. Dyslipidemia. History of thyroid nodule. Postoperative atelectasis. Paroxysmal atrial fibrillation. Plan: Plan dated October 12, 2024. The patient is doing relatively well. He is sitting in the chair next to the hospital bed. He is in room 352. He is on room air. No IV fluids. Yesterday, he developed a spontaneous left-sided pneumothorax. A Thora vent device was placed by cardiothoracic surgery. Today's chest x-ray does not reveal pneumothorax. The Thora vent may come out later today. Will leave that up to cardiothoracic surgery. From the pulmonary standpoint the patient is doing very well. He denies any shortness of breath, cough, wheezing, chest tightness, or phlegm production. Labs, x-rays, and all medications are reviewed. Dictation was produced using [employer] software. Please excuse any grammatical, word or spelling errors. Plan dated October 13, 2024. The patient is seen today in room 352. He is sitting in the chair next to the hospital bed. The patient is currently on room air. He is not receiving any IV fluids. Labs, x-rays, medications have been reviewed. He had a chest x-ray today. The chest x-ray does not reveal pneumothorax. The Thora vent device was removed yesterday by cardiothoracic surgery. The patient is being readied for possible discharge today. No additional recommendations are made. We will continue to follow. Overall prognosis remains good. Dictation was produced using [employer] software. Please excuse any grammatical, word or spelling errors. Time with Patient: Less than 30
--- NOTE | 2024-10-15 12:09 | CDI ---
Documentation Clarification Form Date: 10/15/2024 11:08:16 AM From: Candelaria Hyman RN, CCDS Phone: [phone] Admit Date: 09/30/2024 11:37:00 AM Patient Name: Dajuan Gross Visit Number: [id number] Discharge Date: 10/13/2024 11:56:00 AM ATTENTION: The Clinical Documentation Specialists (CDI) and [facility] Coding Staff appreciate your assistance in clarifying documentation. Please respond to the clarification below the line at the bottom and electronically sign. The CDI & [facility] Coding staff will review the response and follow-up if needed. Please note: Queries are made part of the Legal Health Record. If you have any questions, please contact the author of this message via ITS. Provider: Norma ORNELAS Spontaneous left-sided pneumothorax, unexpected is documented in the progress note starting on 10/11/24 and the patient had Triple-vessel coronary artery bypass grafting on 10/05/24. Additional clarification is requested regarding the relationship, if any, that exists between the diagnosis and the procedure. 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 3endoscopic harvesting of the left radial artery. 4endoscopic harvesting of the left greater saphenous vein. Clinical Indicators: 64-year-old male with triple-vessel coronary artery disease with unstable angina present for elective coronary artery bypass 10/10 CXR: New Small to moderate-sized left-sided pneumothorax, estimated at 15-20%. 10/11 Left Thora vent placement 10/11 Attn: Spontaneous left-sided pneumothorax, unexpected: Oxygen saturations are 94% on room air and he is achieving 2000 mL on his incentive spirometry with encouragement. Lungs sounds essentially clear throughout, diminished to his bilateral bases, left greater than right. Strong cough . 10/11 VS: 114/69 86 16 97.8 94% RA 10/11 Labs WBC 8.9 HGB 7.6 10/12 CXR: 1.Postprocedural changes. Small bilateral pleural effusions. 2.Thoracotomy tube in place no pneumothorax. 10/13 CXR: 10/13 CXR: There is no evidence of pleural effusion, focal consolidation, or pneumothorax. : Interval removal of left thoracotomy tube. Treatment: Cardiac Monitoring/Telemetry Thora vent placement, CXR Daily, with Daily Labs, Daily weights, Shower daily Incentive spirometry use 10 times Q hr. while awake Lasix 20 mg IV x1 What relationship, if any, exists between the diagnosis spontaneous left-sided pneumothorax, unexpected and the procedure? [ X ] Spontaneous left-sided pneumothorax, unexpected is not clinically significant and not a complication [ ] Spontaneous left-sided pneumothorax, unexpected is clinically significant and not a complication [ ] Other please specify ____ [ ] Unable to determine (Template Last Revised: July 2024) MTDD
== END 2024-10-13 11:56 | disposition home health service (06) | DRG 234 ==
LOC: RADNMMAIN 10:40 → 3SCARD 11:37 → 2SICU 10-05 07:29 → 3SCARD 10-07 13:46
PROVIDERS: ADMIT Surgery; ATTEND Surgery
PROC: B2111ZZ Fluoroscopy of Multiple Coronary Arteries using Low Osmolar Contrast (ICD-10-PCS; 2024-09-30)
PROC: 4A023N7 Measurement of Cardiac Sampling and Pressure, Left Heart, Percutaneous Approach (ICD-10-PCS; 2024-09-30)
PROC: 4A0305C Measurement of Arterial Flow, Coronary, Open Approach (ICD-10-PCS; principal; 2024-10-05 08:00)
PROC: 02100A9 Bypass Coronary Artery, One Artery from Left Internal Mammary with Autologous Arterial Tissue, Open Approach (ICD-10-PCS; principal; 2024-10-05 08:00)
PROC: 021009W Bypass Coronary Artery, One Artery from Aorta with Autologous Venous Tissue, Open Approach (ICD-10-PCS; principal; 2024-10-05 08:00)
PROC: 03BC4ZZ Excision of Left Radial Artery, Percutaneous Endoscopic Approach (ICD-10-PCS; principal; 2024-10-05 08:00)
PROC: 02100AW Bypass Coronary Artery, One Artery from Aorta with Autologous Arterial Tissue, Open Approach (ICD-10-PCS; principal; 2024-10-05 08:00)
PROC: 5A1221Z Performance of Cardiac Output, Continuous (ICD-10-PCS; principal; 2024-10-05 08:00)
PROC: 06BQ4ZZ Excision of Left Saphenous Vein, Percutaneous Endoscopic Approach (ICD-10-PCS; principal; 2024-10-05 08:00)
PROC: 02L70CK Occlusion of Left Atrial Appendage with Extraluminal Device, Open Approach (ICD-10-PCS; principal; 2024-10-05 08:00)
PROC: B24BZZ4 Ultrasonography of Heart with Aorta, Transesophageal (ICD-10-PCS; 2024-10-05 08:00)
PROC: 0W9B30Z Drainage of Left Pleural Cavity with Drainage Device, Percutaneous Approach (ICD-10-PCS; 2024-10-11)
DX: I25.110 Atherosclerotic heart disease of native coronary artery with unstable angina pectoris (principal); J93.83 Other pneumothorax; D69.59 Other secondary thrombocytopenia; I10 Essential (primary) hypertension; E04.1 Nontoxic single thyroid nodule; I08.1 Rheumatic disorders of both mitral and tricuspid valves; D62 Acute posthemorrhagic anemia; J98.11 Atelectasis; I48.0 Paroxysmal atrial fibrillation; I25.82 Chronic total occlusion of coronary artery; I25.5 Ischemic cardiomyopathy; E78.5 Hyperlipidemia, unspecified; I25.2 Old myocardial infarction; Z79.899 Other long term (current) drug therapy
CPT/HCPCS: 71045; 71046; 71250; 80048; 80053; 80061; 80074; 81003; 82330; 82805; 83036; 83735; 83880; 84439; 84443; 84481; 85025; 85027; 85610; 85730; 86850; 86891; 86900; 86901; 86920; 87070; 93017; 93306; 93458; 93880; 93970; 94002; 94150; 94640; 94760

== ENCOUNTER → 2024-12-03 | Outpatient (CLI) | payer MEDICARE, BC ==
[2024-12-03 15:40] LABS: ALT 33 U/L (10-49); AST 26 U/L (14-35); Albumin 4.7 g/dL (3.8-4.9); Albumin/Globulin Ratio 1.68 Ratio (1.60-3.17); Alkaline Phosphatase 86 U/L (41-126); Blood Urea Nitrogen 19.8 mg/dL (9.0-27.0); Calcium 9.7 mg/dL (8.7-10.3); Carbon Dioxide 21.3 mmol/L (21.6-31.8); Chloride 107 mmol/L (96-109); Chol/HDL Ratio 2.69 Ratio; Globulin 2.8 g/dL (1.6-3.3); Glucose 109 mg/dL (70-110); LDL Cholesterol,Calculated 58.5 mg/dL (0.0-131.0); Potassium 4.2 mmol/L (3.5-5.5); Sodium 142 mmol/L (135-145); Total Bilirubin 0.8 mg/dL (0.3-1.2); Total Protein 7.5 g/dL (6.2-8.2)
== END | disposition home or self-care (01) ==
LOC: LABWHC1 10:08
PROVIDERS: ATTEND Internal Medicine Interventional Cardiology
DX: E78.2 Mixed hyperlipidemia (principal)
CPT/HCPCS: 36415; 80053; 80061